=== PATIENT | female | born 1930 | race Hispanic/Latino ===

== ENCOUNTER 2017-02-08 16:56 | Emergency (ER) | payer MEDICARE, BC, OTHER ==
[2017-02-08 17:06] VITALS: BMI 24.4
[2017-02-08 17:11] VITALS: BP 201/76; PULSE 96; RESP 18; TEMP 98.1; O2SAT 97
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
--- NOTE | 2017-02-08 18:16 | RAD ---
HISTORY: pes eval COMPARISON: Chest x-ray performed 02/14/16 TECHNIQUE: Chest, one view. FINDINGS: Examination limited by habitus. LUNGS: Bilateral hilar prominence. No focal consolidation. Please note that chest x-ray has limited sensitivity for the detection of pulmonary masses. PLEURA: No significant pleural effusion identified. No definite pneumothorax . CARDIOVASCULAR: Cardiomegaly. Dense atherosclerotic calcifications of the aortic knob. OSSEOUS STRUCTURES: Osseous demineralization. Degenerative changes. Chronic appearing deformity of the left humeral head. VISUALIZED UPPER ABDOMEN: Unremarkable. OTHER FINDINGS: None. IMPRESSION: Bilateral hilar prominence. CT of the chest with IV contrast may be considered for further evaluation if indicated. Cardiomegaly. Dense atherosclerotic calcifications of the aortic knob.
[2017-02-08 18:35] LABS: BASO # 0.02 K/mm3 (0.0-2.0); BASO % 0.2 % (0.0-3.0); EOS # 0.3 (0.0-0.7); EOS % 2.7 % (1.5-5.0); GRAN # 4.72 (1.4-6.5); GRAN % 51.5 % (50.0-68.0); HEMATOCRIT 30.7 % (36.0-48.0); LYMPH # 3.4 (1.2-3.4); LYMPH % 36.5 % (22.0-35.0); MEAN CORPUSCULAR HEMOGLOBIN 31.3 pg (25.0-35.0); MEAN CORPUSCULAR HGB CONC 31.6 g/dl (31.0-37.0); MEAN PLATELET VOLUME 9.4 fl (7.0-11.0); MONO # 0.8 (0.1-0.6); MONO % 9.1 % (1.0-6.0); RED CELL DISTRIBUTION WIDTH 14.6 % (11.5-14.5); WHITE BLOOD COUNT 9.2 10^3/ul (4.5-11.0)
[2017-02-08 18:46] LABS: ALB/GLOB RATIO 0.9 (1.1-1.8); BILIRUBIN,TOTAL 0.4 mg/dL (0.2-1.3); CALCIUM 8.9 mg/dL (8.4-10.5); POTASSIUM 3.8 mmol/L (3.6-5.0); TOTAL PROTEIN 7.7 g/dL (5.8-8.3)
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
--- NOTE | 2017-02-09 20:02 | US ---
PROCEDURE: Left lower extremity venous US HISTORY: Leg pain and swelling. Evaluate for DVT. PHYSICIAN(S): Denis Orozco MD. TECHNIQUE: Duplex sonography and color-flow Doppler with graded compression were used to evaluate the deep venous system of the left lower extremity. The exam is limited by edema. FINDINGS: The visualized deep venous system of the left lower extremity is sonographically normal and compressible. Normal wave forms and augmentation are seen. There is no sonographic evidence for deep venous thrombosis in the visualized segments of the left lower extremity. IMPRESSION: 1. No sonographic evidence for deep venous thrombosis in the visualized segments of the left lower extremity.
--- NOTE | 2017-02-09 23:05 | CARD ---
APPROVED REPORT EKG Measurement Heart [id number] <Conclusion> Sinus rhythm with occasional premature ventricular complexes Inferior infarct, age undetermined Abnormal ECG
== END 2017-02-08 22:00 | disposition home or self-care (01) ==
LOC: ED 16:56
DX: S02.2XXA Fracture of nasal bones, initial encounter for closed fracture (principal); Y08.89XA Assault by other specified means, initial encounter; Y93.89 Activity, other specified; Y92.009 Unspecified place in unspecified non-institutional (private) residence as the place of occurrence of the external cause; I25.2 Old myocardial infarction; I10 Essential (primary) hypertension; Z87.891 Personal history of nicotine dependence
CPT/HCPCS: 70450; 70486; 71010; 80053; 85025; 93005; 93971; 99282; G0480

== ENCOUNTER 2017-11-08 05:32 | Inpatient (IN) | payer MEDICARE, BC, OTHER ==
[2017-11-08 05:38] VITALS: BMI 22.1
--- NOTE | 2017-11-08 05:45 | ED PDOC ---
Arrival/HPI - General Chief Complaint: Lower Extremity Problem/Injury Time Seen by Provider: 11/08/17 05:33 Historian: Patient, Family (Sons) - History of Present Illness Narrative History of Present Illness (Text): 11/08/17 05:45 Emely Gutierrez is an 86 year old female, whose past medical history includes CVA with residual left-sided hemiparesis, CAD with stents, hypothyroidism, hypertension, dyslipidemia, and peripheral neuropathy, who presents to the Emergency department brought in by EMS accompanied by family complaining of left knee pain. Patient reports she tripped and fell while getting out of her wheelchair today and injured her left knee. Patient now complaining of left knee pain with some swelling. Son states patient is unable to bear weight on her left leg secondary to pain. Patient denies any calf pain, loss of consciousness, head trauma, numbness/tingling in the extremity, other trauma/ injury, or any other complaints. Time/Duration: Prior to Arrival Symptom Onset: Sudden Symptom Course: Unchanged Activities at Onset: Light Context: Standing, Home, Tripped Past Medical History - Provider Review Nursing Documentation Reviewed: Yes - Infectious Disease Hx of Infectious Diseases: None - Tetanus Immunization Tetanus Immunization: Unknown - Cardiac Hx Cardiac Disorders: Yes Hx DC: Yes Hx Hypertension: Yes - Pulmonary Hx Respiratory Disorders: No - Neurological HX Cerebrovascular Accident: Yes (with left side weakness 09/2011) - HEENT Hx HEENT Disorder: Yes (eyeglasses) Hx Cataracts: Yes (LEFT sx) Other/Comment: glasses, r eye lazy eye since childhood - Renal Hx Renal Disorder: Yes Other/Comment: UTI'S - Endocrine/Metabolic Hx Hypothyroidism: Yes - Hematological/Oncological Hx Blood Disorders: Yes Hx Anemia: Yes (blood transfusion) Hx Shingles: Yes (back "yrs ago") - Integumentary Hx Dermatological Disorder: Yes Other/Comment: large parotid mass left neck,l heel ulcer healed, skin discolorations left elbow, multiple skin discolorations r arm, b/l lower extremity brown skin discolorations, 1cm red area of skin to r buttock, - Musculoskeletal/Rheumatological Hx Arthritis: Yes - Gastrointestinal Hx Gastrointestinal Disorders: Yes - Genitourinary/Gynecological Hx Genitourinary Disorders: Yes Hx Urinary Tract Infection: Yes (recent) Other/Comment: urinary urgency, pt recently was experiencing urgency incontinency especially at night+uti finished 7 days of abx, incontinency better - Psychiatric Hx Psychophysiologic Disorder: Yes Hx Anxiety: Yes Hx Depression: Yes ([facility]) Hx Substance Use: No - Past Surgical History Past Surgical History: Unable to Obtain - Surgical History Hx Cardiac Catheterization: Yes Hx Coronary Stent: Yes Hx Orthopedic Surgery: Yes (left hip ORIF) Other/Comment: sx for ulcer to left ft 2nd toe healed, bx x2 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 has had mass over 20 yrs - Anesthesia Hx Anesthesia: Yes Hx Anesthesia Reactions: No Hx Malignant Hyperthermia: No - Suicidal Assessment Feels Threatened In Home Enviroment: No Family/Social History - Physician Review Nursing Documentation Reviewed: Yes Family/Social History: Unknown Family HX Smoking Status: Former Smoker Hx Alcohol Use: No Hx Substance Use: No Hx Substance Use Treatment: No Allergies/Home Meds Allergies/Adverse Reactions: Allergies No Known Allergies Allergy (Verified 03/05/17 11:36) Home Medications: Home Meds Medication Instructions Recorded Confirmed Atorvastatin Calcium [Lipitor] 40 mg PO HS 12/25/11 11/08/17 Carvedilol [Coreg] 12.5 mg PO BID 12/27/11 11/08/17 Furosemide [Lasix] 20 mg PO DAILY 05/14/15 11/08/17 Aspirin [Ecotrin] 81 mg PO DAILY 11/02/15 11/08/17 Cilostazol [Pletal] 100 mg PO DAILY 11/02/15 11/08/17 Losartan [Cozaar] 100 mg PO QPM 11/02/15 11/08/17 rOPINIRole [Requip] 1 mg PO QPM 11/02/15 11/08/17 Alprazolam [Xanax] 1 mg PO HS 01/10/16 11/08/17 Aspirin/Dipyridamole [Aggrenox 1 tab PO BID 01/10/16 11/08/17 25-200 mg] Escitalopram [Lexapro] 10 mg PO DAILY 01/10/16 11/08/17 Lactobacillus Combination No.8 1 tab PO BID 01/10/16 11/08/17 [Adult Probiotic] Levothyroxine [Synthroid] 88 mcg PO DAILY 01/10/16 11/08/17 hydroCHLOROthiazide [Hydrodiuril] 25 mg PO DAILY 01/10/16 11/08/17 traMADol [Ultram] 50 mg PO HS 01/10/16 11/08/17 Docusate Calcium [Kaopectate] 0 mg PO PRN 03/05/17 11/08/17 Loperamide Hydrochloride [Imodium] 0 mg PO PRN PRN 03/05/17 11/08/17 Review of Systems - Physician Review All systems were reviewed & negative as marked: Yes - Review of Systems Constitutional: Normal. absent: Fevers Eyes: Normal ENT: Normal Respiratory: Normal. absent: SOB, Cough Cardiovascular: Normal. absent: Chest Pain Gastrointestinal: Normal. absent: Abdominal Pain, Diarrhea, Nausea, Vomiting Genitourinary Female: Normal. absent: Dysuria, Frequency, Hematuria, Urine Output Changes Musculoskeletal: Arthralgias (+left knee pain/swelling). absent: Back Pain, Neck Pain Skin: Normal. absent: Rash Neurological: Normal. absent: Headache, Dizziness Endocrine: Normal Hemo/Lymphatic: Normal Psychiatric: Normal Physical Exam Vital Signs Reviewed: Yes Vital Signs Temp Pulse Resp BP Pulse Ox 11/08/17 10:57 77 142/62 11/08/17 10:56 77 142/62 11/08/17 10:55 142/62 11/08/17 10:33 72 18 142/62 96 11/08/17 08:18 74 14 115/63 97 11/08/17 05:41 99.3 F 72 14 117/43 L 96 Temperature: Afebrile Blood Pressure: Normal Pulse: Regular Respiratory Rate: Normal Appearance: Positive for: Well-Appearing, Non-Toxic, Comfortable Pain Distress: None Mental Status: Positive for: Alert and Oriented X 3 - Systems Exam Head: Present: Atraumatic, Normocephalic Pupils: Present: PERRL Extroacular Muscles: Present: EOMI Conjunctiva: Present: Normal Mouth: Present: Moist Mucous Membranes Neck: Present: Normal Range of Motion Respiratory/Chest: Present: Clear to Auscultation, Good Air Exchange. No: Respiratory Distress, Accessory Muscle Use Cardiovascular: Present: Regular Rate and Rhythm, Normal S1, S2. No: Murmurs Abdomen: No: Tenderness, Distention, Peritoneal Signs Back: Present: Normal Inspection Upper Extremity: Present: Normal Inspection. No: Cyanosis, Edema Lower Extremity: Present: Swelling (Left knee swelling), Neurovascularly Intact. No: Edema, Erythema Neurological: Present: GCS=15, CN II-XII Intact, Speech Normal Skin: Present: Warm, Dry, Normal Color. No: Rashes Psychiatric: Present: Alert, Oriented x 3, Normal Insight, Normal Concentration Medical Decision Making ED Course and Treatment: 11/08/17 05:45 Impression: 87 year old female brought in s/p trip and fall at home with left knee pain/ swelling today. Differential Diagnosis included but are not limited to: sprain vs. fracture vs. contusion Plan: -- XR Left Knee -- Reassess and disposition Progress Notes: 11/08/17 06:24 Reviewed radiology, XR Left Knee shows osteoporotic changes, no fracture. - RAD Interpretation Radiology Orders: 11/08/17 05:44 KNEE LEFT 2 VIEWS (AP & LAT) [RAD] Stat 11/08/17 06:31 EXT LOWER W/O CONTRAST LEFT [CT] Stat Geodetic Surveyor: ED Physician - Medication Orders Current Medication Orders: Acetaminophen (Tylenol 325mg Tab) 650 mg PO Q4H PRN PRN Reason: Pain, Mild (1-3) Last Admin: 11/08/17 10:57 Dose: 650 mg [facility] Pain/Vitals Document 11/08/17 10:57 EQ (Rec: 11/08/17 10:57 EQ [id number]) Pain Reassessment Is This A Pain ReAssessment? No Sleep Is patient sleeping during reassessment? No Presence of Pain Presence of Pain Yes Pain Scale Used Pain Scale Used Numeric Re-Assess: [facility] Pain/Vitals Document 11/08/17 11:57 LMN (Rec: 11/08/17 12:23 LMN [id number]) Pain Reassessment Is This A Pain ReAssessment? Yes Presence of Pain Presence of Pain No Alprazolam (Xanax) 1 mg PO HS ANDREA PRN Reason: Protocol Last Admin: 11/09/17 22:31 Dose: 1 mg Behavioural Document 11/09/17 22:31 MJ (Rec: 11/09/17 22:31 MJ [id number]) Maintenance Maintenance Dose Yes Nonmedicinal Nonmedicinal Interventions Redirect Therapeutic Communication Behavior Behavior for Medication: Anxiety Amlodipine Besylate (Norvasc) 5 mg PO DAILY [facility] Last Admin: 11/10/17 10:48 Dose: 5 mg Aspirin (Ecotrin) 81 mg PO DAILY [facility] Last Admin: 11/10/17 10:46 Dose: 81 mg Atorvastatin Calcium (Lipitor) 40 mg PO HS [facility] Last Admin: 11/09/17 22:31 Dose: 40 mg Carvedilol (Coreg) 12.5 mg PO BID [facility] Last Admin: 11/10/17 17:17 Dose: 12.5 mg Cilostazol (Pletal) 100 mg PO DAILY [facility] Last Admin: 11/10/17 10:49 Dose: 100 mg Escitalopram Oxalate (Lexapro) 10 mg PO DAILY [facility] Last Admin: 11/10/17 10:48 Dose: 10 mg Famotidine (Pepcid) 40 mg PO HS [facility] Last Admin: 11/09/17 22:31 Dose: 40 mg Furosemide (Lasix) 20 mg PO DAILY [facility] Last Admin: 11/10/17 10:47 Dose: 20 mg MAR Blood Pressure Document 11/10/17 10:47 LMN (Rec: 11/10/17 10:48 LMN [id number]) Blood Pressure Blood Pressure (100/60-150/90) 160/75 Heparin Sodium (Porcine) (Heparin) 5,000 units SC Q12 [facility] PRN Reason: Protocol Last Admin: 11/10/17 10:47 Dose: 5,000 units Subcutaneous Administrations Document 11/10/17 10:47 LMN (Rec: 11/10/17 10:47 LMN [id number]) Injection Site MAR Injection Site Right Arm Charges for Administration # of Subcutaneous Administrations 1 Hydrochlorothiazide (Hydrodiuril) 25 mg PO DAILY [facility] Last Admin: 11/10/17 10:47 Dose: 25 mg Sodium Chloride (Sodium Chloride 0.9%) 1,000 mls @ 60 mls/hr IV .[id number] [facility] Last Admin: 11/10/17 13:20 Dose: 60 mls/hr eMAR Start Stop Document 11/10/17 13:20 LMN (Rec: 11/10/17 13:20 LMN [id number]) Intravenous Solution Start Date 11/10/17 Start Time 13:20 Levothyroxine Sodium (Synthroid) 88 mcg PO DAILY [facility] Last Admin: 11/10/17 10:49 Dose: 88 mcg Losartan Potassium (Cozaar) 100 mg PO QPM [facility] Last Admin: 11/10/17 17:17 Dose: 100 mg Ropinirole HCl (Requip) 1 mg PO QPM [facility] Last Admin: 11/10/17 17:17 Dose: 1 mg Tramadol HCl (Ultram) 50 mg PO HS [facility] Last Admin: 11/09/17 22:32 Dose: 50 mg MAR Pain Assessment Document 11/09/17 22:32 MJ (Rec: 11/09/17 22:33 MJ [id number]) Pain Reassessment Is this a pain reassessment? No Sleep Is patient sleeping during reassessment? No Presence of Pain Presence of Pain Yes Description Description Constant Intensity of Pain at present 7 Alleviating Factors/Management Medication Techniques Alleviating Factors Medication Discontinued Medications Pneumococcal Polyvalent Vaccine (Pneumovax 23 Vaccine) 0.5 ml IM .ONCE ONE Stop: 11/08/17 15:50 Potassium Chloride (K-Dur 20 Meq Er Tab) 40 meq PO STAT STA Stop: 11/08/17 13:12 Last Admin: 11/08/17 13:30 Dose: 40 meq Potassium Chloride (K-Dur 20 Meq Er Tab) 40 meq PO STAT STA Stop: 11/09/17 09:25 Last Admin: 11/09/17 10:38 Dose: 40 meq - Transfer of Care Patient signed out to Dr:: magda ct scan and dispo - Scribe Statement The provider has reviewed the documentation as recorded by the Benito Vega Provider Scribe Attestation: All medical record entries made by the Scribe were at my direction and personally dictated by me. I have reviewed the chart and agree that the record accurately reflects my personal performance of the history, physical exam, medical decision making, and the department course for this patient. I have also personally directed, reviewed, and agree with the discharge instructions and disposition. Disposition/Present on Arrival - Present on Arrival Any Indicators Present on Arrival: No History of DVT/PE: No History of Uncontrolled Diabetes: No Urinary Catheter: No History of Decub. Ulcer: No History Surgical Site Infection Following: None - Disposition Have Diagnosis and Disposition been Completed?: Yes Diagnosis: Knee injury Disposition: HOSPITALIZED Disposition Time: 07:00 Patient Problems: Current Active Problems Problem Status Onset Knee injury Acute Condition: GOOD
--- NOTE | 2017-11-08 07:57 | ED PDOC ---
Physical Exam Vital Signs Temp Pulse Resp BP Pulse Ox 11/08/17 05:41 99.3 F 72 14 117/43 L 96 Medical Decision Making ED Course and Treatment: 11/08/17 07:00 Patient endorsed to me by Dr. Dumont. Patient reports being brought into ER for complaint of left knee injury s/p fall. Patient presents difficulty bending left knee secondary to pain and is unable to ambulate. Patient will be admitted for orthopedic consult and potential rehab pending. Also, patient shows to have a moderate-sized effusion to the left knee. - RAD Interpretation Radiology Orders: 11/08/17 05:44 KNEE LEFT 2 VIEWS (AP & LAT) [RAD] Stat 11/08/17 06:31 EXT LOWER W/O CONTRAST LEFT [CT] Stat - Scribe Statement The provider has reviewed the documentation as recorded by the Benito Bryan Provider Scribe Attestation: All medical record entries made by the Scribe were at my direction and personally dictated by me. I have reviewed the chart and agree that the record accurately reflects my personal performance of the history, physical exam, medical decision making, and the department course for this patient. I have also personally directed, reviewed, and agree with the discharge instructions and disposition. Disposition/Present on Arrival - Present on Arrival Any Indicators Present on Arrival: No History of DVT/PE: No History of Uncontrolled Diabetes: No Urinary Catheter: No History of Decub. Ulcer: No History Surgical Site Infection Following: None - Disposition Have Diagnosis and Disposition been Completed?: Yes Diagnosis: Knee injury Disposition: HOSPITALIZED Disposition Time: 17:52 Condition: GOOD
--- NOTE | 2017-11-08 08:08 | RAD ---
PROCEDURE: Left Knee Radiographs. HISTORY: Pain. COMPARISON: None. FINDINGS: BONES: Diffuse osteopenia suggests osteoporosis. This adversely affects the ability to identify nondisplaced fractures. No displaced fractures identified there is no destructive bony lesion appreciable. JOINTS: Joint space narrowing is seen in all 3 joint compartments with mild articular cortical sclerosis compatible with degenerative joint disease. Limited osteophyte development is seen at the patellofemoral compartment. JOINT EFFUSION: A mild suprasellar bursa effusion is identified. OTHER FINDINGS: Extensive vascular calcifications seen posterior distal thigh and proximal leg soft tissues as well as posterior to the knee. Wall stents are identified in the plane of the left superficial femoral artery in the thigh. IMPRESSION: No displaced fracture, subluxation or dislocation. Diffuse osteopenia suggests osteoporosis. Mild suprapatellar bursa effusion.
--- NOTE | 2017-11-08 10:01 | CT ---
PROCEDURE: CT LEFT HIP WITH KNEE WITHOUT CONTRAST HISTORY: fall knee and hip pain COMPARISON: Left knee radiographs 11/08/2017 and left hip radiographs 01/10/2016. Technique: A volumetric ct examination of the left femur was performed including left hip and knee joints. Reformatted datasets provided sagittal axial and coronal planes including surface rendered series. Contrast Dose: None Radiation dose:Total exam DLP = 496.42 mGy-cm. This CT exam was performed using one or more of the following dose reduction techniques: Automated exposure control, adjustment of the mA and/or kV according to patient size, and/or use of iterative reconstruction technique. FINDINGS: No fracture destructive bony lesion is appreciated throughout the left femur. Advanced degenerative changes are identified at the left knee including joint space narrowing, articular cortical sclerosis and osteophyte development. Degenerative calcific changes are identified within the bilateral medial and lateral menisci. Diffuse osteopenia suggests advanced osteoporosis. Clinically correlate. Patient is again seen the status post ORIF proximal left femur for heel proximal left femoral fracture. Intramedullary nail transfixed by proximal and distal interlocking screws are unchanged in location and intrinsic integrity. Moderate degenerative changes seen the left hip joint. Local soft tissues reflect a moderate suprasellar bursa effusion. There is an old healed fracture of the left ischium and extensive wall stenting is appreciated in the course of the left superficial femoral artery throughout its proximal to mid segment. Extensor atherosclerosis is otherwise appreciated throughout the left SFA. Moderate atrophy of the flexor and extensor muscle elite that compartments throughout the thigh is identified. IMPRESSION: 1. No acute left hip fracture or dislocation. Mild osteoarthritis of the left hip and knee joints is identified. A moderate suprapatellar bursa effusion is appreciated. 2. Status post ORIF proximal left femur again identified. Proximal left femoral fracture healed as well as left ischial fracture. 3. Extensive wall stenting is seen involving the proximal to mid left SFA.
[2017-11-08 10:19] LABS: BASO # 0.02 K/mm3 (0.0-2.0); BASO % 0.2 % (0.0-3.0); EOS # 0.2 (0.0-0.7); EOS % 1.4 % (1.5-5.0); GRAN # 8.68 (1.4-6.5); GRAN % 71.7 % (50.0-68.0); HEMOGLOBIN 10.1 g/dL (12.0-16.0); LYMPH # 2.2 (1.2-3.4); LYMPH % 17.9 % (22.0-35.0); MEAN CELL VOLUME 95.4 fl (80.0-105.0); MEAN CORPUSCULAR HEMOGLOBIN 30.7 pg (25.0-35.0); MEAN CORPUSCULAR HGB CONC 32.2 g/dl (31.0-37.0); MEAN PLATELET VOLUME 9.6 fl (7.0-11.0); MONO # 1.1 (0.1-0.6); MONO % 8.8 % (1.0-6.0); RBC 3.29 10^6/uL (3.5-6.1); RED CELL DISTRIBUTION WIDTH 14.4 % (11.5-14.5); WHITE BLOOD COUNT 12.1 10^3/ul (4.5-11.0)
[2017-11-08 10:29] LABS: ALBUMIN 3.7 g/dL (3.0-4.8); CALCIUM 8.6 mg/dL (8.4-10.5)
[2017-11-08 10:39] LABS: TROPONIN I 0.07 ng/mL
[2017-11-08] MEDS: Cilostazol 50 mg Tab UD PO SCH (10:58)
[2017-11-08] MEDS: Levothyroxine 88 MCG TAB PO SCH (10:58)
[2017-11-08] MEDS ORDERED: Potassium Chloride 20 mEq ER Tab PO STA (13:11)
--- NOTE | 2017-11-08 13:26 | CP.PCM.HP ---
<Nina Monge - Last Filed: 11/08/17 13:08> History of Present Illness - History of Present Illness History of Present Illness: H&P for Kellee Pérez PGY3 This is an 87yo female with past medical history of HTN, CAD, OA, Hypothyroidism , dyslipidemia, PVD (3 stents in L leg, 1 in R leg), CVA w/ L residual weakness , chronic diarrhea who came to ED for fall. Patient report she was transferring from her wheelchair and fell on her L side. She did not hit her head and was not dizzy at the time. It was more of a mechanical fall since she had L residual weakness from hx of CVA. Daughter is also at bedside. Patient hit her knee and her L hip. XR and LE CT in ED showed effusion, but no evidence of fracture. Patient also complains of diarrhea, which has been chronic for years. She has never seen a GI doctor, but thinks it could be diet dependent. She denies chest pain, shortness of breath, nausea/vomiting, abdominal pain, fever/ chills, dysuria or hematuria. Past medical history: HTN, CAD, OA, Hypothyroidism, dyslipidemia, PVD (3 stents in L leg, 1 in R leg), CVA w/ L residual weakness, chronic diarrhea Past surgical history: L hip fx w/ pin Home meds: Reviewed as per MAR Allergies: NKDA Social history: Denies EtOH or drug use. Lives with family. Patient uses wheel chair, but also can use walker. Family history: Non-contributory Present on Admission - Present on Admission Any Indicators Present on Admission: No Review of Systems - Review of Systems All systems: reviewed and no additional remarkable complaints except Review of Systems: 12 point ROS reviewed as per HPI and is otherwise negative. Past Patient History - Infectious Disease Hx of Infectious Diseases: None - Tetanus Immunizations Tetanus Immunization: Unknown - Past Medical History & Family History Past Medical History?: Yes - Past Social History Smoking Status: Former Smoker - CARDIAC Hx Cardiac Disorders: Yes Hx Heart Attack: Yes Hx Hypertension: Yes - PULMONARY Hx Respiratory Disorders: No - NEUROLOGICAL HX Cerebrovascular Accident: Yes (with left side weakness 09/2011) - HEENT Hx HEENT Problems: Yes (eyeglasses) Hx Cataracts: Yes (LEFT sx) Other/Comment: glasses, r eye lazy eye since childhood - RENAL Hx Chronic Kidney Disease: Yes Other/Comment: UTI'S - ENDOCRINE/METABOLIC Hx Hypothyroidism: Yes - HEMATOLOGICAL/ONCOLOGICAL Hx Blood Disorders: Yes Hx Anemia: Yes (blood transfusion) Hx Shingles: Yes (back "yrs ago") - INTEGUMENTARY Hx Dermatological Problems: Yes Other/Comment: large parotid mass left neck,l heel ulcer healed, skin discolorations left elbow, multiple skin discolorations r arm, b/l lower extremity brown skin discolorations, 1cm red area of skin to r buttock, - MUSCULOSKELETAL/RHEUMATOLOGICAL Hx Arthritis: Yes - GASTROINTESTINAL Hx Gastrointestinal Disorders: Yes - GENITOURINARY/GYNECOLOGICAL Hx Genitourinary Disorders: Yes Hx Urinary Tract Infection: Yes (recent) Other/Comment: urinary urgency, pt recently was experiencing urgency incontinency especially at night+uti finished 7 days of abx, incontinency better - PSYCHIATRIC Hx Psychophysiologic Disorder: Yes Hx Anxiety: Yes Hx Depression: Yes ([facility]) Hx Substance Use: No - SURGICAL HISTORY Hx Cardiac Catheterization: Yes Hx Coronary Stent: Yes Hx Orthopedic Surgery: Yes (left hip ORIF) Other/Comment: sx for ulcer to left ft 2nd toe healed, bx x2 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 has had mass over 20 yrs - ANESTHESIA Hx Anesthesia: Yes Hx Anesthesia Reactions: No Hx Malignant Hyperthermia: No Meds Allergies/Adverse Reactions: Allergies Allergy/AdvReac Type Severity Reaction Status Date / Time No Known Allergies Allergy Verified 03/05/17 11:36 Physical Exam - Constitutional Appears: No Acute Distress - Head Exam Head Exam: ATRAUMATIC, NORMAL INSPECTION, NORMOCEPHALIC - Eye Exam Eye Exam: Normal appearance, PERRL Pupil Exam: PERRL - ENT Exam ENT Exam: Mucous Membranes Moist Additional comments: L neck mass (chronic) - Respiratory Exam Respiratory Exam: Clear to Auscultation Bilateral, NORMAL BREATHING PATTERN. absent: Rales, Rhonchi, Wheezes - Cardiovascular Exam Cardiovascular Exam: REGULAR RHYTHM, +S1, +S2. absent: Gallop, Rubs, Systolic Murmur - GI/Abdominal Exam GI & Abdominal Exam: Normal Bowel Sounds, Soft. absent: Hernia, Rebound, Rigid , Tenderness - Extremities Exam Extremities exam: Positive for: joint swelling (on L knee). Negative for: calf tenderness, pedal edema - Neurological Exam Neurological exam: Alert, CN II-XII Intact, Oriented x3 - Psychiatric Exam Psychiatric exam: Normal Affect, Normal Mood - Skin Skin Exam: Dry, Warm Additional comments: bruising on L hip Results - Vital Signs Recent Vital Signs: Last Vital Signs Temp 99.3 F 11/08/17 05:41 Pulse 77 11/08/17 10:57 Resp 18 11/08/17 10:33 BP 142/62 11/08/17 10:57 Pulse Ox 96 11/08/17 10:33 - Labs Result Diagrams: 11/08/17 09:50 11/08/17 09:50 Labs: Laboratory Results - last 24 hr 11/08/17 11/08/17 09:50 09:50 WBC 12.1 H RBC 3.29 L Hgb 10.1 L Hct 31.4 L MCV 95.4 MCH 30.7 MCHC 32.2 RDW 14.4 Plt Count 224 MPV 9.6 Gran % 71.7 H Lymph % (Auto) 17.9 L Edwards % (Auto) 8.8 H Eos % (Auto) 1.4 L Baso % (Auto) 0.2 Gran # 8.68 H Lymph # (Auto) 2.2 Edwards # (Auto) 1.1 H Eos # (Auto) 0.2 Baso # (Auto) 0.02 Sodium 144 Potassium 3.0 L Chloride 102 Carbon Dioxide 30 Anion Gap 14 BUN 20 Creatinine 1.2 Est GFR ( Amer) 52 Est GFR (Non-Af Amer) 43 Random Glucose 114 H Calcium 8.6 Total Bilirubin 0.6 AST 23 ALT 20 Alkaline Phosphatase 73 Troponin I 0.07 D Total Protein 7.5 Albumin 3.7 Globulin 3.8 Albumin/Globulin Ratio 1.0 L Assessment & Plan - Assessment and Plan (Free Text) Assessment: This is an 87yo female with past medical history of HTN, CAD, OA, Hypothyroidism , dyslipidemia, PVD (3 stents in L leg, 1 in R leg), CVA w/ L residual weakness , chronic diarrhea who was admitted for 1. Mechanical fall - No L knee fx seen on XR and CT 2. Chronic Diarrhea - Pt never had colonoscopy or EGD - never been evaluated by GI 3. HTN 4. OA 5. Hypothyroidism 6. CAD 7. PVD 8. CVA w/ L residual weakness Plan: Ortho is consulted for L knee effusion. Will get L hip XR to rule out fracture. Continue Tylenol for pain control. Will continue home meds such as ASA, Lipitor , Norvasc, Lasix, HCTZ, Losartan and Coreg. We will continue Requip and tramadol as well as synthroid. Patient is on GI and DVT prophylaxis. Will obtain stool studies for chronic diarrhea. GI is consulted and will follow recommendations. Will place patient on HHD with lactose restriction. Patient will need to be evaluated by PT. Discussed plan with daughter and patient. Case seen, discussed and reviewed with Dr. Hadley. Kellee Monge PGY3 - Date & Time Date: 11/08/17 Time: 13:49 <Juanito Hadley S - Last Filed: 11/10/17 10:25> Results - Vital Signs Recent Vital Signs: Last Vital Signs Temp 96.8 F L 11/10/17 06:00 Pulse 57 L 11/10/17 06:00 Resp 20 11/10/17 06:00 BP 124/55 L 11/10/17 06:00 Pulse Ox 96 11/10/17 06:00 - Labs Result Diagrams: 11/09/17 06:30 11/09/17 06:30 Assessment & Plan - Assessment and Plan (Free Text) Plan: Pt seen and examined yesterday. This is a late entry from that visit. I have reviewed the note of the medical record retrieval specialist and agree with it. I have discussed the assessment and plan with the resident. I have reviewed the patient's labs and medications. Pt had her effusion drained by Ortho. Spoke to family about JOSE. No pain. Spoke to SW at [facility]. Pt with controlled HTN.
[2017-11-08] MEDS ORDERED: Pneumococcal 23-Valent Vaccine IM ONE (15:49)
--- NOTE | 2017-11-08 17:20 | RAD ---
PROCEDURE: Left Hip X-ray Radiographs. HISTORY: fall COMPARISON: Left hip radiographs dated 01/10/2016. FINDINGS: BONES: Left femoral intra medullary ann and screw redemonstrated. No periprosthetic fracture. Limited evaluation of the sacrum due to overlying bowel gas. JOINTS: Diffusely narrowed SOFT TISSUES: Normal. OTHER FINDINGS: Bilateral superficial femoral artery vascular stents. IMPRESSION: No demonstrated acute fracture or dislocation. Diffuse degenerative changes.
[2017-11-09 07:01] LABS: HEMOGLOBIN 9.8 g/dL (12.0-16.0); MEAN CELL VOLUME 94.4 fl (80.0-105.0); MEAN CORPUSCULAR HEMOGLOBIN 30.7 pg (25.0-35.0); MEAN CORPUSCULAR HGB CONC 32.6 g/dl (31.0-37.0); MEAN PLATELET VOLUME 9.9 fl (7.0-11.0); RBC 3.19 10^6/uL (3.5-6.1); RED CELL DISTRIBUTION WIDTH 14.4 % (11.5-14.5); WHITE BLOOD COUNT 11.6 10^3/ul (4.5-11.0)
[2017-11-09 07:19] LABS: CALCIUM 8.4 mg/dL (8.4-10.5)
--- NOTE | 2017-11-09 08:06 | CON ---
DATE: 11/08/2017 ORTHOPEDIC CONSULTATION REPORT LOCATION: Patient is an 87-year-old female in room 566, bed 1. HISTORY OF PRESENT ILLNESS: Patient was seen for extreme pain and swelling of her left knee. Past history of a left hip fracture, which had a peritroch ann and CVA with weakness on the left side which happened about 10 years ago. She does have footdrop, and ambulates with a cane or a walker, and yesterday she stumbled over dropped foot and injured her left knee. X-ray shows osteoarthritis and osteopenia of her left lower leg and she has tremendous effusion of the left knee, it was tense, so we aspirated that right away, got out 70 mL of bloody fluid, and CAT scan there is osteoarthritis and a suggestion of stress fracture, nondisplaced fracture of the lateral tibial plateau, which has to be investigated later, but because her bone is so osteopenic, the risks of surgery outweigh the benefits, so hope she feels better with the aspiration arthrocentesis and injection of Depo-Medrol and Marcaine, and will probably refrain from too much walking knowing that the bones still may get weak, and we cannot afford to let her put weight on that left knee that has been injured, has a suspected nondisplaced fracture, and she is probably definitely going to need subacute rehab to let this knee rest for 2 or 3 weeks. FINAL DIAGNOSES: Hemarthrosis, left knee, with underlying osteoarthritis and stress fracture of her left knee, suspected lateral tibial plateau, minimally displaced; and we will give her physical therapy for and no weightbearing on that left lower extremity for now, until another x-ray is done. Hopefully, this fracture will become more evident on the followup x-rays because the CAT scan was not a designated CAT scan of the knee. So, await a couple of days to get her feeling better and she will go for another CAT scan of the left knee when the swelling goes down a little more. No surgery is planned therapy. Jakob Rg DO
[2017-11-09] MEDS ORDERED: Potassium Chloride 20 mEq ER Tab PO STA (09:24)
[2017-11-09] MEDS: Levothyroxine 88 MCG TAB PO SCH (10:38)
[2017-11-09] MEDS: Cilostazol 50 mg Tab UD PO SCH (10:38)
--- NOTE | 2017-11-09 11:21 | CP.PCM.PN ---
<Nina Monge - Last Filed: 11/09/17 11:17> Subjective - Date & Time of Evaluation Date of Evaluation: 11/09/17 Time of Evaluation: 07:00 - Subjective Subjective: Medicine Progress Note for Kellee Pérez PGY3 Patient seen and examined at bedside. There were no acute overnight events as per nursing staff. Patient slept well overnight. She is feeling well. She denies pain, chest pain, shortness of breath, nausea/vomiting, fever/chills, numbness/tingling. Patient is still complaining of loose stools. Objective - Vital Signs/Intake and Output Vital Signs (last 24 hours): Temp Pulse Resp BP Pulse Ox 98.1 F 66 18 120/62 92 L 11/09/17 06:00 11/09/17 06:00 11/09/17 06:00 11/09/17 10:39 11/09/17 06:00 - Medications Medications: Current Medications Acetaminophen (Tylenol 325mg Tab) 650 mg PO Q4H PRN PRN Reason: Pain, Mild (1-3) Last Admin: 11/08/17 10:57 Dose: 650 mg Alprazolam (Xanax) 1 mg PO [facility] PRN Reason: Protocol Last Admin: 11/08/17 23:07 Dose: 1 mg Amlodipine Besylate (Norvasc) 5 mg PO DAILY [facility] Last Admin: 11/09/17 10:39 Dose: 5 mg Aspirin (Ecotrin) 81 mg PO DAILY [facility] Last Admin: 11/09/17 10:39 Dose: 81 mg Atorvastatin Calcium (Lipitor) 40 mg PO HS [facility] Last Admin: 11/08/17 23:07 Dose: 40 mg Carvedilol (Coreg) 12.5 mg PO BID [facility] Last Admin: 11/09/17 10:38 Dose: 12.5 mg Cilostazol (Pletal) 100 mg PO DAILY [facility] Last Admin: 11/09/17 10:38 Dose: 100 mg Escitalopram Oxalate (Lexapro) 10 mg PO DAILY [facility] Last Admin: 11/09/17 10:38 Dose: 10 mg Famotidine (Pepcid) 40 mg PO HS [facility] Last Admin: 11/08/17 23:08 Dose: 40 mg Furosemide (Lasix) 20 mg PO DAILY [facility] Last Admin: 11/09/17 10:39 Dose: 20 mg Heparin Sodium (Porcine) (Heparin) 5,000 units SC Q12 [facility] PRN Reason: Protocol Last Admin: 11/09/17 10:37 Dose: 5,000 units Hydrochlorothiazide (Hydrodiuril) 25 mg PO DAILY [facility] Last Admin: 11/09/17 10:39 Dose: 25 mg Levothyroxine Sodium (Synthroid) 88 mcg PO DAILY [facility] Last Admin: 11/09/17 10:38 Dose: 88 mcg Losartan Potassium (Cozaar) 100 mg PO QPM [facility] Last Admin: 11/08/17 19:07 Dose: 100 mg Ropinirole HCl (Requip) 1 mg PO QPM [facility] Last Admin: 11/08/17 19:07 Dose: 1 mg Tramadol HCl (Ultram) 50 mg PO HS [facility] Last Admin: 11/08/17 23:07 Dose: 50 mg - Labs Labs: 11/09/17 06:30 11/09/17 06:30 - Constitutional Appears: No Acute Distress - Head Exam Head Exam: ATRAUMATIC, NORMAL INSPECTION, NORMOCEPHALIC - ENT Exam ENT Exam: Mucous Membranes Moist Additional comments: L sided face mass - Respiratory Exam Respiratory Exam: Clear to Ausculation Bilateral, NORMAL BREATHING PATTERN. absent: Rales, Rhonchi, Wheezes - Cardiovascular Exam Cardiovascular Exam: REGULAR RHYTHM, +S1, +S2. absent: Gallop, Rubs, Murmur - GI/Abdominal Exam GI & Abdominal Exam: Soft, Normal Bowel Sounds. absent: Rigid, Tenderness, Mass , Rebound - Extremities Exam Extremities Exam: absent: Pedal Edema Additional comments: L knee s/p drainage. clean and dry. no effusion noted. - Neurological Exam Neurological Exam: Alert, Awake, CN II-XII Intact, Oriented x3 - Skin Skin Exam: Dry, Warm Assessment and Plan - Assessment and Plan (Free Text) Assessment: This is an 87yo female with past medical history of HTN, CAD, OA, Hypothyroidism , dyslipidemia, PVD (3 stents in L leg, 1 in R leg), CVA w/ L residual weakness , chronic diarrhea who was admitted for 1. Mechanical fall - No L knee fx seen on XR and CT - No hip fx on XR 2. Chronic Diarrhea - Pt never had colonoscopy or EGD - never been evaluated by GI 3. HTN 4. OA 5. Hypothyroidism 6. CAD 7. PVD 8. CVA w/ L residual weakness 9. Hypokalemia Plan: Ortho drained knee effusion which was hemearthrosis. As per ortho, they suspect possible L knee stress fracture despite negative imaging. No weight bearing on L for now. Ortho recommended possible repeat knee CT. Will continue patient's home medications. She is stable. GI is on consult for diarrhea. C. diff pending. Lactose restricted diet. Will monitor electrolytes and replace as needed. Continue GI and DVT prophylaxis. PT recommended JOSE and will most likely be d/c on Sunday. Case seen, discussed and reviewed with Dr. Hadley. Kellee Monge PGY3 <Juanito Hadley S - Last Filed: 11/10/17 11:54> Objective - Vital Signs/Intake and Output Vital Signs (last 24 hours): Temp Pulse Resp BP Pulse Ox 96.8 F L 57 L 20 160/75 H 96 11/10/17 06:00 11/10/17 06:00 11/10/17 06:00 11/10/17 10:47 11/10/17 06:00 - Medications Medications: Current Medications Acetaminophen (Tylenol 325mg Tab) 650 mg PO Q4H PRN PRN Reason: Pain, Mild (1-3) Last Admin: 11/08/17 10:57 Dose: 650 mg Alprazolam (Xanax) 1 mg PO HS [facility] PRN Reason: Protocol Last Admin: 11/09/17 22:31 Dose: 1 mg Amlodipine Besylate (Norvasc) 5 mg PO DAILY [facility] Last Admin: 11/10/17 10:48 Dose: 5 mg Aspirin (Ecotrin) 81 mg PO DAILY [facility] Last Admin: 11/10/17 10:46 Dose: 81 mg Atorvastatin Calcium (Lipitor) 40 mg PO HS [facility] Last Admin: 11/09/17 22:31 Dose: 40 mg Carvedilol (Coreg) 12.5 mg PO BID [facility] Last Admin: 11/10/17 10:46 Dose: 12.5 mg Cilostazol (Pletal) 100 mg PO DAILY [facility] Last Admin: 11/10/17 10:49 Dose: 100 mg Escitalopram Oxalate (Lexapro) 10 mg PO DAILY [facility] Last Admin: 11/10/17 10:48 Dose: 10 mg Famotidine (Pepcid) 40 mg PO [facility] Last Admin: 11/09/17 22:31 Dose: 40 mg Furosemide (Lasix) 20 mg PO DAILY [facility] Last Admin: 11/10/17 10:47 Dose: 20 mg Heparin Sodium (Porcine) (Heparin) 5,000 units SC Q12 [facility] PRN Reason: Protocol Last Admin: 11/10/17 10:47 Dose: 5,000 units Hydrochlorothiazide (Hydrodiuril) 25 mg PO DAILY [facility] Last Admin: 11/10/17 10:47 Dose: 25 mg Levothyroxine Sodium (Synthroid) 88 mcg PO DAILY [facility] Last Admin: 11/10/17 10:49 Dose: 88 mcg Losartan Potassium (Cozaar) 100 mg PO QPM [facility] Last Admin: 11/09/17 17:15 Dose: 100 mg Ropinirole HCl (Requip) 1 mg PO QPM [facility] Last Admin: 11/09/17 17:15 Dose: 1 mg Tramadol HCl (Ultram) 50 mg PO [facility] Last Admin: 11/09/17 22:32 Dose: 50 mg - Labs Labs: 11/09/17 06:30 11/09/17 06:30 Assessment and Plan - Assessment and Plan (Free Text) Plan: Pt seen and examined yesterday. I have reviewed the note of the medical accountant and agree with it. I have discussed the assessment and plan with the resident. I have reviewed the patient's labs and medications. She has improvement in her hemearthrosis of the left knee. She will be D/C to [facility] on Sunday. DAAR schmid.
[2017-11-09] MEDS ORDERED: Iohexol 240 (50 ml) ONE (13:23)
--- NOTE | 2017-11-09 13:40 | CP.PCM.CON ---
<Nicho Duff - Last Filed: 11/09/17 15:00> History of Present Illness - History of Present Illness History of Present Illness: PGY-4 GI Fellow Consult Note Mrs. 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 GI consulted for reported diarrhea. Patient states that she has had diarrhea for at least a year or more. She reports loose brown stools, 2-3x per day. She states she does not have them during the night but does state that she has a bowel movement nearly first thing in the morning. She denied any melena, change in stool caliber, weight loss, hematochezia nor incontinence, but she does state that her gait difficulties often makes it difficult to get to the bathroom. Therefore, she wears a diaper because she cannot make it to commode and often soils that or sheets. She denies any recent Abx use, travel, sick contacts nor change in diet. She believes there may be a dietary component to it but she is not sure regarding what. She denied ever having a colonoscopy, but reports an EGD around the time of her stroke which she believed was normal. 12 point ROS negative other than stated above MHx: As mentioned above in addition to OA, Hypothyroid SurgHx: Cardiac stents, hip fx repair FamHx: Denies fam hx of diarrhea SocHx:Denies EtOH or illicits All: NKDA Past Patient History - Infectious Disease Hx of Infectious Diseases: None - Tetanus Immunizations Tetanus Immunization: Unknown - Past Medical History & Family History Past Medical History?: Yes - Past Social History Smoking Status: Former Smoker - CARDIAC Hx Cardiac Disorders: Yes Hx Hypertension: Yes - PULMONARY Hx Respiratory Disorders: No - NEUROLOGICAL HX Cerebrovascular Accident: Yes - HEENT Hx HEENT Problems: Yes (eyeglasses) Hx Cataracts: Yes (LEFT sx) Other/Comment: r eye lazy eye since childhood - RENAL Hx Chronic Kidney Disease: Yes Other/Comment: UTI'S - ENDOCRINE/METABOLIC Hx Endocrine Disorders: Yes Hx Hypothyroidism: Yes - HEMATOLOGICAL/ONCOLOGICAL Hx Blood Disorders: Yes Hx Anemia: Yes (blood transfusion) Hx Shingles: Yes (back "yrs ago") - INTEGUMENTARY Hx Dermatological Problems: Yes Other/Comment: large parotid mass left neck,l heel ulcer healed, multiple bruises to both arms, bruise to left hip, healed sacral wound scar, slight redness to buttocks, brown skin discolorations ble, bruise left shoulder, hx of hyperbaric treatments for ulcers to toes ulcers healed - MUSCULOSKELETAL/RHEUMATOLOGICAL Hx Falls: Yes (fell yesterday) - GASTROINTESTINAL Hx Gastrointestinal Disorders: Yes (gastritis) Hx Gastroesophageal Reflux: Yes - GENITOURINARY/GYNECOLOGICAL Hx Genitourinary Disorders: Yes Hx Incontinence: Yes (urgency) Hx Urinary Tract Infection: Yes (recent) - PSYCHIATRIC Hx Substance Use: No - SURGICAL HISTORY Hx Surgeries: Yes Hx Cardiac Catheterization: Yes Hx Coronary Stent: Yes Hx Orthopedic Surgery: Yes (left hip ORIF) Other/Comment: sx for ulcer to left ft 2nd toe healed, bx x2 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 has had mass over 20 yrs - ANESTHESIA Hx Anesthesia: Yes Hx Anesthesia Reactions: No Hx Malignant Hyperthermia: No Meds Allergies/Adverse Reactions: Allergies Allergy/AdvReac Type Severity Reaction Status Date / Time No Known Allergies Allergy Verified 03/05/17 11:36 - Medications Medications: Current Medications Acetaminophen (Tylenol 325mg Tab) 650 mg PO Q4H PRN PRN Reason: Pain, Mild (1-3) Last Admin: 11/08/17 10:57 Dose: 650 mg Alprazolam (Xanax) 1 mg PO [facility] PRN Reason: Protocol Last Admin: 11/08/17 23:07 Dose: 1 mg Amlodipine Besylate (Norvasc) 5 mg PO DAILY [facility] Last Admin: 11/09/17 10:39 Dose: 5 mg Aspirin (Ecotrin) 81 mg PO DAILY [facility] Last Admin: 11/09/17 10:39 Dose: 81 mg Atorvastatin Calcium (Lipitor) 40 mg PO HS [facility] Last Admin: 11/08/17 23:07 Dose: 40 mg Carvedilol (Coreg) 12.5 mg PO BID [facility] Last Admin: 11/09/17 10:38 Dose: 12.5 mg Cilostazol (Pletal) 100 mg PO DAILY [facility] Last Admin: 11/09/17 10:38 Dose: 100 mg Escitalopram Oxalate (Lexapro) 10 mg PO DAILY [facility] Last Admin: 11/09/17 10:38 Dose: 10 mg Famotidine (Pepcid) 40 mg PO [facility] Last Admin: 11/08/17 23:08 Dose: 40 mg Furosemide (Lasix) 20 mg PO DAILY [facility] Last Admin: 11/09/17 10:39 Dose: 20 mg Heparin Sodium (Porcine) (Heparin) 5,000 units SC Q12 [facility] PRN Reason: Protocol Last Admin: 11/09/17 10:37 Dose: 5,000 units Hydrochlorothiazide (Hydrodiuril) 25 mg PO DAILY [facility] Last Admin: 11/09/17 10:39 Dose: 25 mg Levothyroxine Sodium (Synthroid) 88 mcg PO DAILY [facility] Last Admin: 11/09/17 10:38 Dose: 88 mcg Losartan Potassium (Cozaar) 100 mg PO QPM [facility] Last Admin: 11/08/17 19:07 Dose: 100 mg Ropinirole HCl (Requip) 1 mg PO QPM [facility] Last Admin: 11/08/17 19:07 Dose: 1 mg Tramadol HCl (Ultram) 50 mg PO HS [facility] Last Admin: 11/08/17 23:07 Dose: 50 mg Physical Exam - Constitutional Appears: Non-toxic, No Acute Distress - Head Exam Head Exam: ATRAUMATIC Additional comments: L mandible with soft, semi-mobile mass - Eye Exam Eye Exam: EOMI. absent: Conjunctival injection, Scleral icterus - ENT Exam ENT Exam: Mucous Membranes Dry, Normal Oropharynx - Respiratory Exam Respiratory Exam: Clear to Auscultation Bilateral. absent: Accessory Muscle Use , Respiratory Distress, Stridor - Cardiovascular Exam Cardiovascular Exam: RRR. absent: Systolic Murmur - GI/Abdominal Exam GI & Abdominal Exam: Normal Bowel Sounds, Soft. absent: Bruit, Diminished Bowel Sounds, Distended, Guarding, Tenderness - Rectal Exam Rectal Exam: Deferred - Neurological Exam Neurological exam: Alert, Oriented x3 - Psychiatric Exam Psychiatric exam: Normal Affect, Normal Mood - Skin Skin Exam: Dry, Warm Results - Vital Signs Recent Vital Signs: Last Vital Signs Temp 98.1 F 11/09/17 06:00 Pulse 66 11/09/17 06:00 Resp 18 11/09/17 06:00 BP 120/62 11/09/17 10:39 Pulse Ox 92 L 11/09/17 06:00 - Labs Result Diagrams: 11/09/17 06:30 11/09/17 06:30 Labs: Laboratory Results - last 24 hr 11/09/17 11/09/17 06:30 06:30 WBC 11.6 H RBC 3.19 L Hgb 9.8 L Hct 30.1 L MCV 94.4 MCH 30.7 MCHC 32.6 RDW 14.4 Plt Count 194 MPV 9.9 Sodium 144 Potassium 3.2 L Chloride 105 Carbon Dioxide 29 Anion Gap 13 BUN 25 H Creatinine 1.3 H Est GFR ( Amer) 47 Est GFR (Non-Af Amer) 39 Random Glucose 136 H Calcium 8.4 Magnesium 2.1 Assessment & Plan - Assessment and Plan (Free Text) Assessment: Chronic diarrhea: >30 days in duration. Pt reports at symptoms for nearly a year. Never had CSPY, only EGD which was reportedly normal last year around time of stroke. No melena nor hematochezia. Symptoms do not occur at night therefore not suggestive of secretory diarrhea. Though less likely infectious, need to rule out. Ultimately likely needs CSPY as outpatient with biopsies to further w/u, possible microscopic colitis? Will begin w/u with Abd/Pelvis CT with PO contrast. Plan: Check C diff, Stool Cx, O&P Ordered CT Abd/Pelvis with PO contrast Likely OP CSPY OK to give loperamide once C diff ruled out - Date & Time Date: 11/09/17 Time: 13:00 <Clinton Calixto V - Last Filed: 11/10/17 00:06> Meds - Medications Medications: Current Medications Acetaminophen (Tylenol 325mg Tab) 650 mg PO Q4H PRN PRN Reason: Pain, Mild (1-3) Last Admin: 11/08/17 10:57 Dose: 650 mg Alprazolam (Xanax) 1 mg PO HS [facility] PRN Reason: Protocol Last Admin: 11/09/17 22:31 Dose: 1 mg Amlodipine Besylate (Norvasc) 5 mg PO DAILY [facility] Last Admin: 11/09/17 10:39 Dose: 5 mg Aspirin (Ecotrin) 81 mg PO DAILY [facility] Last Admin: 11/09/17 10:39 Dose: 81 mg Atorvastatin Calcium (Lipitor) 40 mg PO HS [facility] Last Admin: 11/09/17 22:31 Dose: 40 mg Carvedilol (Coreg) 12.5 mg PO BID [facility] Last Admin: 11/09/17 17:15 Dose: 12.5 mg Cilostazol (Pletal) 100 mg PO DAILY [facility] Last Admin: 11/09/17 10:38 Dose: 100 mg Escitalopram Oxalate (Lexapro) 10 mg PO DAILY [facility] Last Admin: 11/09/17 10:38 Dose: 10 mg Famotidine (Pepcid) 40 mg PO HS [facility] Last Admin: 11/09/17 22:31 Dose: 40 mg Furosemide (Lasix) 20 mg PO DAILY [facility] Last Admin: 11/09/17 10:39 Dose: 20 mg Heparin Sodium (Porcine) (Heparin) 5,000 units SC Q12 [facility] PRN Reason: Protocol Last Admin: 11/09/17 22:30 Dose: 5,000 units Hydrochlorothiazide (Hydrodiuril) 25 mg PO DAILY [facility] Last Admin: 11/09/17 10:39 Dose: 25 mg Levothyroxine Sodium (Synthroid) 88 mcg PO DAILY [facility] Last Admin: 11/09/17 10:38 Dose: 88 mcg Losartan Potassium (Cozaar) 100 mg PO QPM [facility] Last Admin: 11/09/17 17:15 Dose: 100 mg Ropinirole HCl (Requip) 1 mg PO QPM [facility] Last Admin: 11/09/17 17:15 Dose: 1 mg Tramadol HCl (Ultram) 50 mg PO HS [facility] Last Admin: 11/09/17 22:32 Dose: 50 mg Results - Vital Signs Recent Vital Signs: Last Vital Signs Temp 97.6 F 11/09/17 22:33 Pulse 60 11/09/17 22:33 Resp 18 11/09/17 22:33 BP 136/62 11/09/17 22:33 Pulse Ox 96 11/09/17 22:33 - Labs Result Diagrams: 11/09/17 06:30 11/09/17 06:30 Labs: Laboratory Results - last 24 hr 11/09/17 11/09/17 06:30 06:30 WBC 11.6 H RBC 3.19 L Hgb 9.8 L Hct 30.1 L MCV 94.4 MCH 30.7 MCHC 32.6 RDW 14.4 Plt Count 194 MPV 9.9 Sodium 144 Potassium 3.2 L Chloride 105 Carbon Dioxide 29 Anion Gap 13 BUN 25 H Creatinine 1.3 H Est GFR ( Amer) 47 Est GFR (Non-Af Amer) 39 Random Glucose 136 H Calcium 8.4 Magnesium 2.1 Attending/Attestation - Attestation I have personally seen and examined this patient.: Yes I have fully participated in the care of the patient.: Yes I have reviewed all pertinent clinical information: Yes Notes (Text): This is an addendum to GI progress report dictated by the GI Fellow.The patient was seen and examined earlier. Medical records, lab studies, imagings were reviewed. Last 24 hours events reviewed. Agreed with the above treatment plan as outlined in GI Fellow 's notes the with the addition of the following 11/10/17 00:06
--- NOTE | 2017-11-09 17:22 | CT ---
PROCEDURE: CT Abdomen and Pelvis with contrast HISTORY: change in bowel habits, diarrhea COMPARISON: None. TECHNIQUE: Oral contrast only. Radiation dose: Total exam DLP = 410.63 mGy-cm. This CT exam was performed using one or more of the following dose reduction techniques: Automated exposure control, adjustment of the mA and/or kV according to patient size, and/or use of iterative reconstruction technique. FINDINGS: LOWER THORAX: Unremarkable. LIVER: Focal mass in the right hepatic lobe of uncertain etiology and significance. Mass resides in the right lobe measures 2.1 x 3.1 cm. There appears to be an adjacent, smaller mass better visualized on coronal sequences measuring 1.4 cm. No additional hepatic masses. Incidental subcentimeter hepatic cysts. GALLBLADDER AND BILE DUCTS: Cholelithiasis without CT evidence of acute cholecystitis. PANCREAS: Unremarkable. No gross lesion or ductal dilatation. SPLEEN: Unremarkable. ADRENALS: Unremarkable. No mass. KIDNEYS AND URETERS: Unremarkable. No hydronephrosis. No solid mass. Incidental finding(s): Upper pole cyst right kidney 2.4 cm. Right lower pole nonobstructing calculus 4 mm. Additional punctate calcifications scattered throughout both kidneys are difficult to discriminate from extensive renal arterial vascular calcifications. She VASCULATURE: Unremarkable. No aortic aneurysm. BOWEL: Diffuse colonic distention. This extends from the rectum to the cecum. There is a mobile cecum without evidence of cecal volvulus. APPENDIX: A normal appendix is not visualized. No secondary signs to suggest appendicitis. PERITONEUM: Unremarkable. No free fluid. No free air. LYMPH NODES: Unremarkable. No enlarged lymph nodes. BLADDER: Unremarkable. REPRODUCTIVE: Unremarkable. BONES: No acute fracture. OTHER FINDINGS: None. IMPRESSION: Diffuse colonic distention without obstructing lesion. Cholelithiasis without CT evidence of acute cholecystitis. Additional benign and/or incidental findings described above.
[2017-11-10] MEDS: Levothyroxine 88 MCG TAB PO SCH (10:49)
[2017-11-10] MEDS: Cilostazol 50 mg Tab UD PO SCH (10:49)
[2017-11-10 11:47] LABS: IRON 42 ug/dL (45-180)
[2017-11-10 11:56] LABS: % IRON SATURATION 17 % (20-55); TOTAL IRON BINDING CAPACITY 243 ug/dL (265-497)
[2017-11-10] MEDS: Sodium Chloride 0.9% 1,000 ML IV SCH (13:20)
[2017-11-11] MEDS: Cilostazol 50 mg Tab UD PO SCH (11:01)
[2017-11-11] MEDS: Levothyroxine 88 MCG TAB PO SCH (11:02)
--- NOTE | 2017-11-11 12:59 | PN ---
DATE: 11/11/2017 ORTHOPEDIC FOLLOWUP REPORT LOCATION: In room 566, bed 1. SUBJECTIVE: Patient feels much better with the previous effusion of her left knee, which turned out to be hemarthrosis without an underlying stress fracture by x-ray. She has no pain. She cannot ambulate because of her weakness of her left lower extremity from CVA and heel cord contracture. Has no potential to ambulate even in the room, but she can do transfers with help. Get on the bed, chair and on the recliner, which she should do by physical therapy. We will try to get her up out of bed with therapy and she can put weight on her lower extremities with help and to get on a chair, but that is going to be too dangerous to ambulate because she is going to fall again and she should consider subacute rehab, have a long-term placement if there is no help at home. Jakob Rg DO
[2017-11-11] MEDS: Amylase/Lipase/Protease 5,000 Units ECC PO SCH ×2 (15:45→18:44)
--- NOTE | 2017-11-11 15:52 | CP.PCM.PN ---
Subjective - Date & Time of Evaluation Date of Evaluation: 11/10/17 Time of Evaluation: 10:00 - Subjective Subjective: DATE: 11/10/2017 HISTORY OF PRESENT ILLNESS: Mr. Gutierrez is an 87-year-old female admitted to the hospital with chronic diarrhea. She was taking Imodium at home. She was admitted with left knee pain. She tripped and fell out of wheel chair, injured her knees, developed a left knee swelling. CAT scan of the abdomen showed mass around 3 cm in right lobe of the liver. She was evaluated by GI, Dr. Calixto and there was also diffuse distention of colon from rectum to ileocecal junction. I discussed with Dr. 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 No marked lesions was found on the CAT scan of abdomen. She continues to have diarrhea few times a day. PAST MEDICAL HISTORY: CVA, anemia, history of blood transfusions in the past; left parotid mass, benign; history of recurrent UTIs, depression. PAST SURGICAL HISTORY: Cardiac catheterization, coronary artery disease; orthopedic surgeries. ALLERGIES: NO KNOWN DRUG ALLERGIES. HOME MEDICATIONS: Atorvastatin 40 mg daily, Coreg 12.5 mg p.o. b.i.d., Lasix 20 mg daily, aspirin 81 mg daily, Cozaar 100 mg daily, Xanax, Lactobacillus, Synthroid 88 mcg daily, tramadol 50 at bedtime, hydrochlorothiazide 25 mg daily, Imodium p.r.n. REVIEW OF SYSTEMS: As per HPI. Rest of 12-point review of systems reviewed negative. PHYSICAL EXAMINATIONA; GENERAL: Comfortable in bed, in no acute distress. VITAL SIGNS: Temperature 98.7, heart rate 70 per minute, respiratory rate 18 per minute, blood pressure 140/60, pulse ox is 96% on room air. HEENT: Pallor positive. NECK: No lymphadenopathy. CHEST: Air entry present and equal bilateral. No added sounds. CARDIOVASCULAR: S1, S2 normal. No murmur. No gallop. ABDOMEN: Soft, nontender. No hepatosplenomegaly. EXTREMITIES: No edema. CHIEF OPERATOR REFORMER: Alert and oriented x3. No focal sensorimotor deficits. SPINE: Nontender. SKIN: No petechiae. No rash LABORATORY DATA: White count 11.6, hemoglobin 9.8, hematocrit 30.1, platelet 194. Sodium 144, potassium 3.2, creatinine 1.3, magnesium 2.1. ASSESSMENT: 1. Chronic diarrhea. 2. Diffuse colonic distention. 3. Left knee pain. 4. Mass in the right lobe of the liver. 5. Anemia. PLAN: There is mass in right lobe of the liver, diffuse colonic distention without the marked lesion. I will order the tumor markers, CA-125, CEA 19.9 . CA 19.9 is elevated to 1600. She will need evaluation for pancreatic mass. Tumor markers were not back when I saw the patient today. I will discuss with the daughter regarding extend of workup for possible malignancy. . discussed with Dr. Calixto; diffuse colonic distention, he thinks that it is due to motility disorder. We will continue Imodium 2 mg p.r.n. for motility disorder. Iron studies were ordered, showed severe iron deficiency anemia, hemoglobin and hematocrit stable at 9.8, if hemoglobin declines further, to consider IV iron. B12 level is normal at 765. Creatinine is elevated at 1.3. We will continue IV hydration because she has diarrhea few times a day. Thank you Dr. Mendoza for allowing us to participate in Mr. Gutierrez's care. Marie Rodriguez MD Objective - Vital Signs/Intake and Output Vital Signs (last 24 hours): Temp Pulse Resp BP Pulse Ox 98.3 F 75 40 H 132/64 97 11/11/17 06:00 11/11/17 06:00 11/11/17 06:00 11/11/17 11:02 11/11/17 06:00 Intake and Output: 11/11/17 11/11/17 06:59 18:59 Intake Total 300 480 Balance 300 480 - Medications Medications: Current Medications Acetaminophen (Tylenol 325mg Tab) 650 mg PO Q4H PRN PRN Reason: Pain, Mild (1-3) Last Admin: 11/08/17 10:57 Dose: 650 mg Alprazolam (Xanax) 1 mg PO HS [facility] PRN Reason: Protocol Last Admin: 11/11/17 06:54 Dose: Not Given Amlodipine Besylate (Norvasc) 5 mg PO DAILY [facility] Last Admin: 11/11/17 11:02 Dose: 5 mg Amylase (Pancrease [id number] U) 5,000 unit PO TID [facility] Aspirin (Ecotrin) 81 mg PO DAILY [facility] Last Admin: 11/11/17 11:02 Dose: 81 mg Atorvastatin Calcium (Lipitor) 40 mg PO HS [facility] Last Admin: 11/10/17 21:14 Dose: 40 mg Carvedilol (Coreg) 12.5 mg PO BID [facility] Last Admin: 11/11/17 11:02 Dose: 12.5 mg Cilostazol (Pletal) 100 mg PO DAILY [facility] Last Admin: 11/11/17 11:01 Dose: 100 mg Escitalopram Oxalate (Lexapro) 10 mg PO DAILY [facility] Last Admin: 11/11/17 11:02 Dose: 10 mg Famotidine (Pepcid) 40 mg PO HS [facility] Last Admin: 11/10/17 21:14 Dose: 40 mg Furosemide (Lasix) 20 mg PO DAILY [facility] Last Admin: 11/11/17 11:02 Dose: 20 mg Heparin Sodium (Porcine) (Heparin) 5,000 units SC Q12 [facility] PRN Reason: Protocol Last Admin: 11/11/17 11:04 Dose: 5,000 units Hydrochlorothiazide (Hydrodiuril) 25 mg PO DAILY [facility] Last Admin: 11/11/17 11:02 Dose: 25 mg Sodium Chloride (Sodium Chloride 0.9%) 1,000 mls @ 60 mls/hr IV .[id number] [facility] Last Admin: 11/10/17 13:20 Dose: 60 mls/hr Levothyroxine Sodium (Synthroid) 88 mcg PO DAILY [facility] Last Admin: 11/11/17 11:02 Dose: 88 mcg Loperamide HCl (Imodium) 2 mg PO QID [facility]N PRN Reason: Diarrhea Losartan Potassium (Cozaar) 100 mg PO QPM [facility] Last Admin: 11/10/17 17:17 Dose: 100 mg Ropinirole HCl (Requip) 1 mg PO QPM [facility] Last Admin: 11/10/17 17:17 Dose: 1 mg Tramadol HCl (Ultram) 50 mg PO HS [facility] Last Admin: 11/10/17 21:14 Dose: 50 mg - Labs Labs: 11/09/17 06:30 11/11/17 12:15
[2017-11-11] MEDS: Sodium Chloride 0.9% 1,000 ML IV SCH (16:06)
--- NOTE | 2017-11-11 16:36 | PN ---
DATE: 11/11/2017 SUBJECTIVE: She is comfortable in bed, in no acute distress, eating her lunch. Diarrhea has reduced in volume. She is currently on IV fluids. Review of CAT scan of the abdomen showed multiple lesions in the liver, hypodense lesions, the largest one is 3 cm. CA 19.9 is elevated to 1600. No events overnight. No abdominal pain. REVIEW OF SYSTEMS: As per HPI. Rest of 12-point review of systems reviewed negative. PHYSICAL EXAMINATION: GENERAL: Comfortable in bed, in no acute distress. VITAL SIGNS: Temperature 98.3, heart rate 75 per minute, blood pressure 132/64, respiratory rate 20 per minute, oxygen saturation 97% on room air. HEENT: Pallor positive. NECK: No lymphadenopathy. CHEST: Air entry present and equal bilaterally. No added sounds. CARDIOVASCULAR: S1 and S2 normal. No murmur. No gallop. ABDOMEN: Soft, nontender. No hepatosplenomegaly. EXTREMITIES: No edema. CENTRAL NERVOUS SYSTEM: Alert and oriented x3. No focal sensory motor deficit. LABORATORY DATA: White count 11.6, hemoglobin 9.8, platelet count 194. Sodium 144, potassium 3.2, creatinine 1.3. Iron 42, saturation 17%. MEDICATIONS: Tylenol 650 every 4 hours p.r.n., Norvasc 5 mg daily, Pancrease enzyme, aspirin 81 mg daily, Lipitor 40 mg p.o. at bedtime, Coreg 12.5 mg p.o. b.i.d., Pletal 100 mg daily, Pepcid 40 mg daily, Lexapro 10 mg daily, Lasix 20 mg daily, heparin, Requip, Cozaar 100 mg daily, Imodium p.r.n., and tramadol at bedtime. ASSESSMENT: 1. Chronic diarrhea. 2. Hypodense liver lesions, multiple. 3. Elevated CA 19.9. 4. Diffuse distention of colon. 5. Iron-deficiency anemia. PLAN: She was scheduled to be transferred to [facility]. I discussed with the daughter the concern for hypodense liver lesions. I discussed with her telephonically. She was very agitated and started shouting on the phone. She has been upset with multiple things in the hospital yesterday. She was upset with the nursing care. Discussed with Dr. Calixto, she needs MRCP for further evaluation. The daughter wants a family meeting with her brother and herself. She was not in the hospital until late afternoon today. Patient will not be a candidate for any kind of treatment for cancer, even if the diagnosis is made. The daughter was not willing to listen to what I have to stay. She hung up the phone in middle of the conversation. Discharge to [facility] was canceled. Discussed with Dr. Calixto. Possible ERCP to be done tomorrow and discharge to [facility]. Discussed with Dr. Mendoza. Marie Rodriguez MD MTDD
--- NOTE | 2017-11-11 19:21 | CP.PCM.PN ---
Subjective - Date & Time of Evaluation Date of Evaluation: 11/11/17 Time of Evaluation: 13:00 - Subjective Subjective: episodes of diarrhea mainly post prandial. No abdominal pain Objective - Vital Signs/Intake and Output Vital Signs (last 24 hours): Temp Pulse Resp BP Pulse Ox 98.3 F 57 L 20 113/50 L 97 11/11/17 14:00 11/11/17 14:00 11/11/17 14:00 11/11/17 14:00 11/11/17 14:00 Intake and Output: 11/11/17 11/12/17 18:59 06:59 Intake Total 480 Balance 480 - Medications Medications: Current Medications Acetaminophen (Tylenol 325mg Tab) 650 mg PO Q4H PRN PRN Reason: Pain, Mild (1-3) Last Admin: 11/08/17 10:57 Dose: 650 mg Alprazolam (Xanax) 1 mg PO HS [facility] PRN Reason: Protocol Last Admin: 11/11/17 06:54 Dose: Not Given Amlodipine Besylate (Norvasc) 5 mg PO DAILY [facility] Last Admin: 11/11/17 11:02 Dose: 5 mg Amylase (Pancrease 92106 U-5000 U-28599 U) 5,000 unit PO TID [facility] Aspirin (Ecotrin) 81 mg PO DAILY [facility] Last Admin: 11/11/17 11:02 Dose: 81 mg Atorvastatin Calcium (Lipitor) 40 mg PO HS [facility] Last Admin: 11/10/17 21:14 Dose: 40 mg Carvedilol (Coreg) 12.5 mg PO BID [facility] Last Admin: 11/11/17 11:02 Dose: 12.5 mg Cilostazol (Pletal) 100 mg PO DAILY [facility] Last Admin: 11/11/17 11:01 Dose: 100 mg Escitalopram Oxalate (Lexapro) 10 mg PO DAILY [facility] Last Admin: 11/11/17 11:02 Dose: 10 mg Famotidine (Pepcid) 40 mg PO HS [facility] Last Admin: 11/10/17 21:14 Dose: 40 mg Furosemide (Lasix) 20 mg PO DAILY [facility] Last Admin: 11/11/17 11:02 Dose: 20 mg Heparin Sodium (Porcine) (Heparin) 5,000 units SC Q12 [facility] PRN Reason: Protocol Last Admin: 11/11/17 11:04 Dose: 5,000 units Hydrochlorothiazide (Hydrodiuril) 25 mg PO DAILY [facility] Last Admin: 11/11/17 11:02 Dose: 25 mg Sodium Chloride (Sodium Chloride 0.9%) 1,000 mls @ 60 mls/hr IV .[id number] [facility] Last Admin: 11/11/17 16:06 Dose: 60 mls/hr Levothyroxine Sodium (Synthroid) 88 mcg PO DAILY [facility] Last Admin: 11/11/17 11:02 Dose: 88 mcg Loperamide HCl (Imodium) 2 mg PO QID PRN PRN Reason: Diarrhea Losartan Potassium (Cozaar) 100 mg PO QPM [facility] Last Admin: 11/10/17 17:17 Dose: 100 mg Ropinirole HCl (Requip) 1 mg PO QPM [facility] Last Admin: 11/10/17 17:17 Dose: 1 mg Tramadol HCl (Ultram) 50 mg PO HS [facility] Last Admin: 11/10/17 21:14 Dose: 50 mg - Labs Labs: 11/09/17 06:30 11/11/17 12:15 - Constitutional Appears: Well, No Acute Distress - Head Exam Head Exam: ATRAUMATIC, NORMOCEPHALIC - Eye Exam Eye Exam: EOMI, PERRL - ENT Exam ENT Exam: Mucous Membranes Moist - Neck Exam Neck Exam: Full ROM, Lymphadenopathy Additional comments: left large parotid tumor - Respiratory Exam Respiratory Exam: NORMAL BREATHING PATTERN. absent: Rales, Rhonchi - Cardiovascular Exam Cardiovascular Exam: REGULAR RHYTHM, +S1, +S2 - GI/Abdominal Exam GI & Abdominal Exam: Soft, Normal Bowel Sounds. absent: Tenderness - Neurological Exam Neurological Exam: Alert, Awake, Oriented x3 Assessment and Plan - Assessment and Plan (Free Text) Assessment: this 87-year-old patient sp CVA,CAD,HTN left parotid tumor was admitted following fall . She was c/o chronic diarrhea mainly postprandial and at times she has diarrhea even when not eating. But she rarely gets up from bed at night to move her bowels CT scan showed diffuse colonic dilation. Rectal examination donot reveal any ano rectal lesion. The CT scan was reviewed multiple hepatic lesions are noticed. Significantly elevated tumor markers CA [address] was done without IV contrast pancreatic evaluation was limited. Would recommend MRI of the liver with MRCP to further evaluate Would request with no contrast in viewof chronic kidney disease Supplement potassium level I did discuss with and the nursing staff Also left a message for patients son who has POA to call back to discuss Patient was scheduled to go to snf Awaiting for call from patients family
--- NOTE | 2017-11-12 01:10 | PN ---
DATE: 11/10/2017 SUBJECTIVE: This patient was seen and evaluated earlier. The patient's daughter was at bedside. I had a detailed discussion with the patient. The patient was admitted following a fall. She has a history of chronic diarrhea. The diarrhea has worsened after eating. At times, she has diarrhea even without eating any food. This is a chronic diarrhea, and rarely gets up at the night to move her bowels. She does have also some urge urinary incontinence also. No complaints of any abdominal pain now. PHYSICAL EXAMINATION: VITAL SIGNS: She remains afebrile. Temperature is 97, pulse is 70, blood pressure is 110/53, respiration is 19, O2 saturation 95%. HEENT: Atraumatic, anicteric. 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 NECK: Supple. Otherwise, the parotid tumor mentioned above. HEART: S1 and S2 heard. LUNGS: Bilateral air entry present. ABDOMEN: Soft. No tenderness. LABORATORY DATA: Hemoglobin 9.8, hematocrit 30.1, WBC 11.6, platelets 194. Chemistry done on 11/09/2017. The patient's potassium was 3.2, and repeat one, the patient is being supplemented. IMPRESSION: This 87-year-old patient with a history of status post cerebrovascular accident, large parotid tumor, felt it was too high risk for surgery, history of hypertension, dyslipidemia, admitted following a fall. The patient does have a history of chronic diarrhea. The CT scan was done, which showed diffuse colonic distention. I did a rectal examination - failed to reveal any mass lesion. The patient does have slightly reduced tone probably. CT scan was reviewed. The patient has cephalic lesions noted also in the CAT scan. Tumor marker was ordered. The patient is scheduled to be transferred to [facility]. I did discuss with the patient's daughter. They are not very keen on doing any colonoscopic evaluation before. She said she will discuss again with her brother and make a decision. Thank you very much for allowing us to participate in the care of the patient. Clinton Calixto MD
[2017-11-12 07:15] LABS: BASO # 0.01 K/mm3 (0.0-2.0); BASO % 0.1 % (0.0-3.0); EOS # 0.3 (0.0-0.7); EOS % 2.8 % (1.5-5.0); GRAN # 5.25 (1.4-6.5); GRAN % 58.1 % (50.0-68.0); HEMOGLOBIN 10.8 g/dL (12.0-16.0); LYMPH # 2.6 (1.2-3.4); LYMPH % 29.2 % (22.0-35.0); MEAN CELL VOLUME 94.3 fl (80.0-105.0); MEAN CORPUSCULAR HGB CONC 32.9 g/dl (31.0-37.0); MEAN PLATELET VOLUME 10.4 fl (7.0-11.0); MONO # 0.9 (0.1-0.6); MONO % 9.8 % (1.0-6.0); RBC 3.48 10^6/uL (3.5-6.1); RED CELL DISTRIBUTION WIDTH 13.9 % (11.5-14.5)
[2017-11-12 07:36] LABS: CALCIUM 8.5 mg/dL (8.4-10.5)
[2017-11-12 08:30] VITALS: RESP 18
[2017-11-12] MEDS: Amylase/Lipase/Protease 5,000 Units ECC PO SCH ×3 (10:00→18:18)
--- NOTE | 2017-11-12 10:05 | CP.PCM.DIS ---
<MariposaNina - Last Filed: 11/12/17 13:12> Provider - Provider Date of Admission: 11/08/17 08:51 Attending physician: Juanito Hadley MD Primary care physician: Lorenzo Hewitt MD Consults: Ortho: Dr. Rg GI: Dr. Calixto Time Spent in preparation of Discharge (in minutes): 35 Hospital Course - Lab Results Lab Results: Micro Results 11/08/17 19:30 Stool C. difficile Antigen & Toxin A,B (M - Final Most Recent Lab Values WBC 9.0 10^3/ul (4.5-11.0) D 11/12/17 06:30 RBC 3.48 10^6/uL (3.5-6.1) L 11/12/17 06:30 Hgb 10.8 g/dL (12.0-16.0) L 11/12/17 06:30 Hct 32.8 % (36.0-48.0) L 11/12/17 06:30 MCV 94.3 fl (80.0-105.0) 11/12/17 06:30 MCH 31.0 pg (25.0-35.0) 11/12/17 06:30 MCHC 32.9 g/dl (31.0-37.0) 11/12/17 06:30 RDW 13.9 % (11.5-14.5) 11/12/17 06:30 Plt Count 234 10^3/uL (120.0-450.0) 11/12/17 06:30 MPV 10.4 fl (7.0-11.0) 11/12/17 06:30 Gran % 58.1 % (50.0-68.0) 11/12/17 06:30 Lymph % (Auto) 29.2 % (22.0-35.0) 11/12/17 06:30 Osborne % (Auto) 9.8 % (1.0-6.0) H 11/12/17 06:30 Eos % (Auto) 2.8 % (1.5-5.0) 11/12/17 06:30 Baso % (Auto) 0.1 % (0.0-3.0) 11/12/17 06:30 Gran # 5.25 (1.4-6.5) 11/12/17 06:30 Lymph # (Auto) 2.6 (1.2-3.4) 11/12/17 06:30 Osborne # (Auto) 0.9 (0.1-0.6) H 11/12/17 06:30 Eos # (Auto) 0.3 (0.0-0.7) 11/12/17 06:30 Baso # (Auto) 0.01 K/mm3 (0.0-2.0) 11/12/17 06:30 Sodium 143 mmol/L (132-148) 11/12/17 06:30 Potassium 3.8 mmol/L (3.6-5.0) 11/12/17 06:30 Chloride 106 mmol/L (98-107) 11/12/17 06:30 Carbon Dioxide 25 mmol/L (21-33) 11/12/17 06:30 Anion Gap 16 (10-20) 11/12/17 06:30 BUN 35 mg/dL (7-21) H 11/12/17 06:30 Creatinine 1.1 mg/dl (0.7-1.2) 11/12/17 06:30 Est GFR ( Amer) 57 11/12/17 06:30 Est GFR (Non-Af Amer) 47 11/12/17 06:30 Random Glucose 90 mg/dL (70-110) 11/12/17 06:30 Calcium 8.5 mg/dL (8.4-10.5) 11/12/17 06:30 Magnesium 2.1 mg/dL (1.7-2.2) 11/09/17 06:30 Iron 42 ug/dL (45-180) L 11/10/17 11:30 TIBC 243 ug/dL (265-497) L 11/10/17 11:30 % Saturation 17 % (20-55) L 11/10/17 11:30 Ferritin 111.0 ng/mL 11/10/17 11:30 Total Bilirubin 0.6 mg/dL (0.2-1.3) 11/08/17 09:50 AST 23 U/L (14-36) 11/08/17 09:50 ALT 20 U/L (7-56) 11/08/17 09:50 Alkaline Phosphatase 73 U/L (38-126) 11/08/17 09:50 Troponin I 0.07 ng/mL D 11/08/17 09:50 Total Protein 7.5 g/dL (5.8-8.3) 11/08/17 09:50 Albumin 3.7 g/dL (3.0-4.8) 11/08/17 09:50 Globulin 3.8 gm/dL 11/08/17 09:50 Albumin/Globulin Ratio 1.0 (1.1-1.8) L 11/08/17 09:50 Alpha Fetoprotein 1.3 ng/mL (0.0-7.5) 11/10/17 11:30 Carcinoembryonic Ag 28.6 ng/mL (0.0-3.0) H 11/10/17 11:30 CA 19-9 Antigen 1620 U/mL (0-37) H 11/10/17 11:30 Vitamin B12 765 pg/mL (239-931) 11/10/17 11:30 - Hospital Course Hospital Course: This is an 87yo female with past medical history of HTN, CAD, OA, Hypothyroidism , L parotid tumor, dyslipidemia, PVD (3 stents in L leg, 1 in R leg), CVA w/ L residual weakness, chronic diarrhea who was admitted for mechanical fall as well as chronic diarrhea. Patient did not have any fractures seen on imaging. She was seen by ortho who drained her L knee which had hemearthrosis from the fall. Physical therapy evaluated patient and recommended JOSE. Patient also has complained chronic diarrhea which she has had for many years. As per GI it can be secondary to a motility disorder. She had a CT A/P which showed liver lesions and CEA/Ca 19-9 were both elevated. Patient was placed on pancrease enzymes for the diarrhea. Patient has never had colonoscopy or EGD before. As per GI, patient will get MRCP prior to discharge to evaluate the liver and pancreas. I had a long discussion with the patient and her daughter about the liver lesions and what their plan of care is. We will get imaging done today and patient will be d/c to [facility]. From there, the patient and family can decide about their plans and follow up with Dr. Calixto as outpatient if they want. - Date & Time of H&P Date of H&P: 07/05/18 Time of H&P: 10:00 Discharge Exam - Head Exam Head Exam: ATRAUMATIC, NORMOCEPHALIC - Eye Exam Eye Exam: PERRL - ENT Exam ENT Exam: Mucous Membranes Moist Additional comments: L parotid tumor - Respiratory Exam Respiratory Exam: Clear to PA & Lateral, NORMAL BREATHING PATTERN, UNREMARKABLE. absent: Rales, Rhonchi, Wheezes - Cardiovascular Exam Cardiovascular Exam: REGULAR RHYTHM, +S1, +S2. absent: Gallop, Rubs, Systolic Murmur - GI/Abdominal Exam GI & Abdominal Exam: Normal Bowel Sounds, Soft, Unremarkable. absent: Mass, Rebound, Rigid, Tenderness - Extremities Exam Extremities exam: normal inspection - Neurological Exam Neurological exam: Alert, CN II-XII Intact, Oriented x3 - Skin Skin Exam: Dry, Warm Discharge Plan - Follow Up Plan Condition: GOOD Disposition: TRANSF TO SNF Instructions: Osteoporosis, Heart Healthy Diet, Preventing Falls in the Older Adult, Heart Failure, Adult (DC), Preventing Falls Referrals: Lorenzo Hewitt MD [Primary Care Provider] - <Juanito Hadley - Last Filed: 11/13/17 18:51> Provider - Provider Date of Admission: 11/08/17 08:51 Attending physician: Juanito Hadley MD Primary care physician: Lorenzo Hewitt MD Hospital Course - Lab Results Lab Results: Micro Results 11/10/17 14:25 Stool Ova and Parasite Concentrate Exam - Final 11/10/17 14:25 Stool Stool Culture - Final NO SALMONELLA, SHIGELLA OR CAMPYLOBACTER ISOLATED. 11/08/17 19:30 Stool C. difficile Antigen & Toxin A,B (M - Final Most Recent Lab Values WBC 9.0 10^3/ul (4.5-11.0) D 11/12/17 06:30 RBC 3.48 10^6/uL (3.5-6.1) L 11/12/17 06:30 Hgb 10.8 g/dL (12.0-16.0) L 11/12/17 06:30 Hct 32.8 % (36.0-48.0) L 11/12/17 06:30 MCV 94.3 fl (80.0-105.0) 11/12/17 06:30 MCH 31.0 pg (25.0-35.0) 11/12/17 06:30 MCHC 32.9 g/dl (31.0-37.0) 11/12/17 06:30 RDW 13.9 % (11.5-14.5) 11/12/17 06:30 Plt Count 234 10^3/uL (120.0-450.0) 11/12/17 06:30 MPV 10.4 fl (7.0-11.0) 11/12/17 06:30 Gran % 58.1 % (50.0-68.0) 11/12/17 06:30 Lymph % (Auto) 29.2 % (22.0-35.0) 11/12/17 06:30 Osborne % (Auto) 9.8 % (1.0-6.0) H 11/12/17 06:30 Eos % (Auto) 2.8 % (1.5-5.0) 11/12/17 06:30 Baso % (Auto) 0.1 % (0.0-3.0) 11/12/17 06:30 Gran # 5.25 (1.4-6.5) 11/12/17 06:30 Lymph # (Auto) 2.6 (1.2-3.4) 11/12/17 06:30 Osborne # (Auto) 0.9 (0.1-0.6) H 11/12/17 06:30 Eos # (Auto) 0.3 (0.0-0.7) 11/12/17 06:30 Baso # (Auto) 0.01 K/mm3 (0.0-2.0) 11/12/17 06:30 Sodium 143 mmol/L (132-148) 11/12/17 06:30 Potassium 3.8 mmol/L (3.6-5.0) 11/12/17 06:30 Chloride 106 mmol/L (98-107) 11/12/17 06:30 Carbon Dioxide 25 mmol/L (21-33) 11/12/17 06:30 Anion Gap 16 (10-20) 11/12/17 06:30 BUN 35 mg/dL (7-21) H 11/12/17 06:30 Creatinine 1.1 mg/dl (0.7-1.2) 11/12/17 06:30 Est GFR ( Amer) 57 11/12/17 06:30 Est GFR (Non-Af Amer) 47 11/12/17 06:30 Random Glucose 90 mg/dL (70-110) 11/12/17 06:30 Calcium 8.5 mg/dL (8.4-10.5) 11/12/17 06:30 Magnesium 2.1 mg/dL (1.7-2.2) 11/09/17 06:30 Iron 42 ug/dL (45-180) L 11/10/17 11:30 TIBC 243 ug/dL (265-497) L 11/10/17 11:30 % Saturation 17 % (20-55) L 11/10/17 11:30 Ferritin 111.0 ng/mL 11/10/17 11:30 Total Bilirubin 0.6 mg/dL (0.2-1.3) 11/08/17 09:50 AST 23 U/L (14-36) 11/08/17 09:50 ALT 20 U/L (7-56) 11/08/17 09:50 Alkaline Phosphatase 73 U/L (38-126) 11/08/17 09:50 Troponin I 0.07 ng/mL D 11/08/17 09:50 Total Protein 7.5 g/dL (5.8-8.3) 11/08/17 09:50 Albumin 3.7 g/dL (3.0-4.8) 11/08/17 09:50 Globulin 3.8 gm/dL 11/08/17 09:50 Albumin/Globulin Ratio 1.0 (1.1-1.8) L 11/08/17 09:50 Alpha Fetoprotein 1.3 ng/mL (0.0-7.5) 11/10/17 11:30 Carcinoembryonic Ag 28.6 ng/mL (0.0-3.0) H 11/10/17 11:30 CA 19-9 Antigen 1620 U/mL (0-37) H 11/10/17 11:30 Vitamin B12 765 pg/mL (239-931) 11/10/17 11:30 - Hospital Course Hospital Course: Pt seen and examined yesterday. This is a late entry. I have reviewed the note of the manager medical and agree with it. I have discussed the assessment and plan with the resident. I have reviewed the patient's labs and medications. Pt to get MRCP and will be sent to [facility]. GI spoke to family to update them. She will need JOSE.
[2017-11-12] MEDS: Levothyroxine 88 MCG TAB PO SCH (10:50)
[2017-11-12] MEDS: Cilostazol 50 mg Tab UD PO SCH (11:17)
--- NOTE | 2017-11-12 11:17 | MRI ---
PROCEDURE: HISTORY: attn to liver and pancreas COMPARISON: 11/09/2017 CT scan abdomen pelvis TECHNIQUE: FINDINGS: Re- demonstration of a 2.3 centimeter mass in the right hepatic lobe. Additional smaller cystic lesion measuring 5 millimeters. Hyperintense T2 lesion in the spleen measuring 9 millimeters. The pancreas, adrenal glands and kidneys are unremarkable with the exception of 1.8 centimeter right lower pole renal cyst. The gallbladder is absent. There is no significant adenopathy. The bowel loops are unremarkable. The lung bases are clear. The heart is enlarged. IMPRESSION: 2.3 centimeter nonspecific mass in the right hepatic lobe. This is nonspecific but favored to represent a malignancy.
[2017-11-12 15:17] VITALS: TEMP 99; O2SAT 96
--- NOTE | 2017-11-12 15:37 | CP.PCM.PN ---
Subjective - Date & Time of Evaluation Date of Evaluation: 11/12/17 Time of Evaluation: 10:00 - Subjective Subjective: PGY-4 GI fellow prog note Pt states will with some diarrhea. Eager for ultimate DC and MRI. 5 point ROS negative other than above Objective - Vital Signs/Intake and Output Vital Signs (last 24 hours): Temp Pulse Resp BP Pulse Ox 99 F 55 L 18 105/55 L 96 11/12/17 14:00 11/12/17 14:00 11/12/17 14:00 11/12/17 14:00 11/12/17 14:00 Intake and Output: 11/12/17 11/12/17 06:59 18:59 Intake Total 540 Balance 540 - Medications Medications: Current Medications Acetaminophen (Tylenol 325mg Tab) 650 mg PO Q4H PRN PRN Reason: Pain, Mild (1-3) Last Admin: 11/08/17 10:57 Dose: 650 mg Amlodipine Besylate (Norvasc) 5 mg PO DAILY [facility] Last Admin: 11/12/17 10:51 Dose: 5 mg Amylase (Pancrease 80276 U-5000 U-69944 U) 5,000 unit PO TID [facility] Last Admin: 11/12/17 13:53 Dose: 5,000 unit Aspirin (Ecotrin) 81 mg PO DAILY [facility] Last Admin: 11/12/17 10:50 Dose: 81 mg Atorvastatin Calcium (Lipitor) 40 mg PO HS [facility] Last Admin: 11/11/17 21:53 Dose: 40 mg Carvedilol (Coreg) 12.5 mg PO BID [facility] Last Admin: 11/12/17 10:51 Dose: 12.5 mg Cilostazol (Pletal) 100 mg PO DAILY [facility] Last Admin: 11/12/17 11:17 Dose: 100 mg Escitalopram Oxalate (Lexapro) 10 mg PO DAILY [facility] Last Admin: 11/12/17 10:50 Dose: 10 mg Famotidine (Pepcid) 40 mg PO HS [facility] Last Admin: 11/11/17 21:53 Dose: 40 mg Furosemide (Lasix) 20 mg PO DAILY [facility] Last Admin: 11/12/17 10:51 Dose: 20 mg Heparin Sodium (Porcine) (Heparin) 5,000 units SC Q12 [facility] PRN Reason: Protocol Last Admin: 11/12/17 10:52 Dose: 5,000 units Hydrochlorothiazide (Hydrodiuril) 25 mg PO DAILY [facility] Last Admin: 11/12/17 10:51 Dose: 25 mg Sodium Chloride (Sodium Chloride 0.9%) 1,000 mls @ 60 mls/hr IV .[id number] [facility] Last Admin: 11/11/17 16:06 Dose: 60 mls/hr Levothyroxine Sodium (Synthroid) 88 mcg PO DAILY [facility] Last Admin: 11/12/17 10:50 Dose: 88 mcg Loperamide HCl (Imodium) 2 mg PO QID PRN PRN Reason: Diarrhea Losartan Potassium (Cozaar) 100 mg PO QPM [facility] Last Admin: 11/11/17 18:42 Dose: 100 mg Ropinirole HCl (Requip) 1 mg PO QPM [facility] Last Admin: 11/11/17 18:42 Dose: 1 mg Tramadol HCl (Ultram) 50 mg PO HS [facility] Last Admin: 11/11/17 21:53 Dose: 50 mg - Labs Labs: 11/12/17 06:30 11/12/17 06:30 - Constitutional Appears: Well, No Acute Distress - Head Exam Additional comments: Large L sided mandible mass - Eye Exam Eye Exam: EOMI. absent: Conjunctival injection - Respiratory Exam Respiratory Exam: NORMAL BREATHING PATTERN. absent: Accessory Muscle Use, Prolonged Expiratory Phase - GI/Abdominal Exam GI & Abdominal Exam: Soft. absent: Distended, Firm, Guarding, Tenderness Assessment and Plan - Assessment and Plan (Free Text) Assessment: Liver lesion in setting of elevated CA19-9 and CEA: Concerning for metastatic malignancy, more so pancreatic CA than colon CA. Family and pt declining colonoscopy for now. Agree to get MRI to further investigate possible pancreatic malignancy. Chronic diarrhea: >30 days in duration. Suspect related to steatorrhea given concern for pancreatic malignancy. Never had CSPY, only EGD which was reportedly normal last year around time of stroke. Plan: MRCP w/o con Pancreatic enzymes to help with likely steatorrhea
[2017-11-12 18:19] VITALS: BP 118/56; PULSE 59
== END 2017-11-12 18:45 | DRG 543 ==
LOC: ED 05:32 → ERH 08:51 → 5RNO 10:09 → ERH 10:09 → 5RNO 11:59
PROVIDERS: ADMIT Internal Medicine Nephrology; ATTEND Internal Medicine Nephrology
DX: M84.362A Stress fracture, left tibia, initial encounter for fracture (principal); I69.354 Hemiplegia and hemiparesis following cerebral infarction affecting left non-dominant side; M25.062 Hemarthrosis, left knee; M17.12 Unilateral primary osteoarthritis, left knee; M85.862 Other specified disorders of bone density and structure, left lower leg; I25.10 Atherosclerotic heart disease of native coronary artery without angina pectoris; E03.9 Hypothyroidism, unspecified; E78.5 Hyperlipidemia, unspecified; I73.9 Peripheral vascular disease, unspecified; I25.2 Old myocardial infarction; I12.9 Hypertensive chronic kidney disease with stage 1 through stage 4 chronic kidney disease, or unspecified chronic kidney disease; N18.9 Chronic kidney disease, unspecified; D49.0 Neoplasm of unspecified behavior of digestive system; D50.9 Iron deficiency anemia, unspecified; E87.6 Hypokalemia; K21.9 Gastro-esophageal reflux disease without esophagitis; K52.9 Noninfective gastroenteritis and colitis, unspecified; K76.9 Liver disease, unspecified; M21.379 Foot drop, unspecified foot; N39.41 Urge incontinence; W01.0XXA Fall on same level from slipping, tripping and stumbling without subsequent striking against object, initial encounter; Z79.82 Long term (current) use of aspirin; Z79.899 Other long term (current) drug therapy; Z87.440 Personal history of urinary (tract) infections; Z87.891 Personal history of nicotine dependence; Z95.5 Presence of coronary angioplasty implant and graft; Z98.42 Cataract extraction status, left eye

== ENCOUNTER 2017-11-26 20:26 | Inpatient (IN) | payer MEDICARE, BC, OTHER ==
[2017-11-26] MEDS: Sodium Chloride 0.9% 1,000 ML IV SCH (21:21)
[2017-11-26 21:28] LABS: BASO # 0.01 K/mm3 (0.0-2.0); BASO % 0.1 % (0.0-3.0); EOS # 0.3 (0.0-0.7); EOS % 3.8 % (1.5-5.0); GRAN # 5.54 (1.4-6.5); GRAN % 70.7 % (50.0-68.0); HEMOGLOBIN 9.5 g/dL (12.0-16.0); LYMPH # 1.4 (1.2-3.4); LYMPH % 17.2 % (22.0-35.0); MEAN CELL VOLUME 93.8 fl (80.0-105.0); MEAN CORPUSCULAR HEMOGLOBIN 31.3 pg (25.0-35.0); MEAN CORPUSCULAR HGB CONC 33.3 g/dl (31.0-37.0); MEAN PLATELET VOLUME 9.6 fl (7.0-11.0); MONO # 0.6 (0.1-0.6); MONO % 8.2 % (1.0-6.0); RBC 3.04 10^6/uL (3.5-6.1); RED CELL DISTRIBUTION WIDTH 14.1 % (11.5-14.5); WHITE BLOOD COUNT 7.8 10^3/ul (4.5-11.0)
[2017-11-26 21:44] LABS: ALB/GLOB RATIO 0.9 (1.1-1.8); ALBUMIN 3.4 g/dL (3.0-4.8); CALCIUM 8.5 mg/dL (8.4-10.5)
[2017-11-26 21:51] LABS: TROPONIN I 0.02 ng/mL
[2017-11-26] MEDS ORDERED: Azithromycin 500MG/NS 250ml 500 MG/250 ML BAG IVPB STA (22:45)
[2017-11-27 01:16] VITALS: BMI 22.3
--- NOTE | 2017-11-27 03:09 | ED PDOC ---
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 Patient is also accompanied by daughter, who also mentions patient has been experiencing coughing for 4 days. She was given cough syrup, however has had no relief. Also, daughter notes patient has not been herself and has had decrease PO intake. Patient denies any other complaints at this time. PMD: Dr. Hewitt Past Medical History - Provider Review Nursing Documentation Reviewed: Yes - Infectious Disease Hx of Infectious Diseases: None - Tetanus Immunization Tetanus Immunization: Unknown - Cardiac Hx Cardiac Disorders: Yes Hx Cardiac Arrhythmia: Yes Hx Congestive Heart Failure: Yes Hx Hypertension: Yes Hx Peripheral Vascular Disease: Yes Other/Comment: stents x3 - Pulmonary Hx Respiratory Disorders: No - Neurological Hx Neurological Disorder: Yes HX Cerebrovascular Accident: Yes (with left side weakness 09/2011) Hx Transient Ischemic Attacks (TIA): Yes - HEENT Hx HEENT Disorder: Yes (eyeglasses) Hx Cataracts: Yes (LEFT sx) Other/Comment: glasses, r eye lazy eye since childhood - Renal Hx Renal Disorder: No - Endocrine/Metabolic Hx Endocrine Disorders: Yes Hx Hypothyroidism: Yes - Hematological/Oncological Hx Blood Disorders: Yes Hx Anemia: Yes (blood transfusion) Hx Shingles: Yes (back "yrs ago") - Integumentary Hx Dermatological Disorder: Yes Other/Comment: large parotid mass left neck,l heel ulcer healed, skin discolorations left elbow, multiple skin discolorations r arm, b/l lower extremity brown skin discolorations, 1cm red area of skin to r buttock, - Musculoskeletal/Rheumatological Hx Musculoskeletal Disorders: Yes Hx Arthritis: Yes Hx Falls: Yes Hx Unsteady Gait: Yes Other/Comment: left hip orif, left shoulder fracture - Gastrointestinal Hx Gastrointestinal Disorders: Yes Hx Gastroesophageal Reflux: Yes Other/Comment: gastritis - Genitourinary/Gynecological Hx Genitourinary Disorders: Yes Hx Urinary Tract Infection: Yes (recent) Other/Comment: urinary urgency, pt recently was experiencing urgency incontinency especially at night+uti finished 7 days of abx, incontinency better - Psychiatric Hx Psychophysiologic Disorder: Yes Hx Anxiety: Yes Hx Depression: Yes ([facility]) Hx Substance Use: No - Past Surgical History Past Surgical History: Unable to Obtain - Surgical History Hx Cardiac Catheterization: Yes Hx Coronary Stent: Yes Hx Orthopedic Surgery: Yes (left hip ORIF) Other/Comment: sx for ulcer to left ft 2nd toe healed, bx x2 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 has had mass over 20 yrs - Anesthesia Hx Anesthesia: Yes Hx Anesthesia Reactions: No Hx Malignant Hyperthermia: No - Suicidal Assessment Feels Threatened In Home Enviroment: No Family/Social History - Physician Review Nursing Documentation Reviewed: Yes Family/Social History: No Known Family HX Smoking Status: Former Smoker Hx Alcohol Use: No Hx Substance Use: No Hx Substance Use Treatment: No Allergies/Home Meds Allergies/Adverse Reactions: Allergies No Known Allergies Allergy (Verified 03/05/17 11:36) Home Medications: Home Meds Medication Instructions Recorded Confirmed Atorvastatin Calcium [Lipitor] 40 mg PO HS 12/25/11 11/26/17 Carvedilol [Coreg] 12.5 mg PO BID 12/27/11 11/26/17 Furosemide [Lasix] 20 mg PO QOTHERDAY 05/14/15 11/26/17 Aspirin [Ecotrin] 81 mg PO DAILY 11/02/15 11/26/17 Alprazolam [Xanax] 0.5 mg PO HS 01/10/16 11/26/17 Escitalopram [Lexapro] 10 mg PO DAILY 01/10/16 11/26/17 Levothyroxine [Synthroid] 88 mcg PO DAILY 01/10/16 11/26/17 hydroCHLOROthiazide [Hydrodiuril] 25 mg PO DAILY 01/10/16 11/26/17 traMADol [Ultram] 50 mg PO HS 01/10/16 11/26/17 Acetaminophen [Tylenol 325mg tab] 2 tab PO Q4 PRN 11/26/17 11/26/17 Acetaminophen [Tylenol] 2 tab PO Q4 PRN 11/26/17 11/26/17 Ascorbic Acid [Vitamin C] 500 mg PO DAILY 11/26/17 11/26/17 Cilostazol [Pletal] 100 mg PO DAILY 11/26/17 11/26/17 Famotidine [Pepcid] 40 mg PO HS 11/26/17 11/26/17 Heparin 5,000 units SC Q12 11/26/17 11/26/17 Loperamide [Imodium] 2 mg PO Q6 PRN 11/26/17 11/26/17 Multivitamin [Multivitamins] 1 each PO DAILY 11/26/17 11/26/17 Pancreatin 5,000 unit PO TID 11/26/17 11/26/17 Potassium Chloride [K-Dur 20] 20 meq PO DAILY 11/26/17 11/26/17 Promethazine/Dextromethorphan 5 ml PO TID 11/26/17 11/26/17 [Promethazine-Dm Syrup] Silver Sulfadiazine [Silvadene] 1 ea TP DAILY 11/26/17 11/26/17 Sodium Polystyrene Sulfonate 60 ml PO DAILY 11/26/17 11/26/17 [Kalexate] Zinc [Zinc Sulfate 220 mg Cap] 220 mg PO DAILY 11/26/17 11/26/17 Review of Systems - Physician Review All systems were reviewed & negative as marked: Yes - Review of Systems Constitutional: absent: Fevers, Night Sweats Respiratory: Cough. absent: SOB Cardiovascular: absent: Chest Pain Gastrointestinal: Appetite Changes (decrease in PO intake). absent: Abdominal Pain, Diarrhea, Nausea, Vomiting Genitourinary Female: absent: Dysuria, Frequency, Urine Output Changes Neurological: absent: Headache, Dizziness Psychiatric: Other (according to patient's daughter, patient has not been herself in behavior.) Physical Exam Vital Signs Reviewed: Yes Vital Signs Temp Pulse Resp BP Pulse Ox 11/27/17 00:25 58 L 12 110/48 L 94 L 11/26/17 23:04 56 L 16 107/44 L 92 L 11/26/17 20:39 98.0 F 59 L 16 117/47 L 94 L Temperature: Afebrile Blood Pressure: Normal Pulse: Regular Respiratory Rate: Normal Appearance: Positive for: Well-Appearing, Non-Toxic, Comfortable Pain Distress: None Mental Status: Positive for: Alert and Oriented X 3 - Systems Exam Head: Present: Atraumatic, Normocephalic Pupils: Present: PERRL Extroacular Muscles: Present: EOMI Conjunctiva: Present: Normal Mouth: Present: Dry Neck: Present: Normal Range of Motion Respiratory/Chest: Present: Clear to Auscultation, Good Air Exchange. No: Respiratory Distress, Accessory Muscle Use Cardiovascular: Present: Regular Rate and Rhythm, Normal S1, S2. No: Murmurs Abdomen: No: Tenderness, Distention, Peritoneal Signs Back: Present: Normal Inspection Upper Extremity: Present: Normal Inspection. No: Cyanosis, Edema Lower Extremity: Present: Normal Inspection. No: Edema Neurological: Present: GCS=15, CN II-XII Intact, Speech Normal Skin: Present: Warm, Dry, Normal Color. No: Rashes Psychiatric: Present: Alert, Oriented x 3, Normal Insight, Normal Concentration Medical Decision Making ED Course and Treatment: 11/26/17 21:23 Impression: 87 year old female with low H&H sent from residential. Physical exam shows dry mucous membranes; rest of examination is normal. Plan: -- EKG -- Chest X-ray -- Labs -- Urinalysis -- IV Fluids -- Blood Culture -- Urine Culture -- Reassess and disposition Progress Notes: EKG: Ordered, reviewed, and independently interpreted the EKG. Rate : 57 BPM Rhythm : Sinus bradycardia. Interpretation : No ST-segment elevations or depressions, no T-wave inversions, normal intervals. Comparison : No previous EKG for comparison. - Lab Interpretations Lab Results: 11/26/17 21:23 11/26/17 21:23 Lab Results 11/26/17 21:23: Sodium 136, Potassium 3.8, Chloride 98, Carbon Dioxide 28, Anion Gap 14, BUN 39 H, Creatinine 1.6 H, Est GFR ( Amer) 37, Est GFR ( Non-Af Amer) 31, Random Glucose 107, Calcium 8.5, Magnesium 2.2, Total Bilirubin 0.4, AST 53 H D, ALT 54, Alkaline Phosphatase 99, Lactate Dehydrogenase 491, Total Creatine Kinase 124, Troponin I 0.02 D, NT-Pro-B Natriuret Pep 1230 H, Total Protein 7.2, Albumin 3.4, Globulin 3.7, Albumin/ Globulin Ratio 0.9 L 11/26/17 21:23: WBC 7.8, RBC 3.04 L, Hgb 9.5 L, Hct 28.5 L, MCV 93.8, MCH 31.3, MCHC 33.3, RDW 14.1, Plt Count 208, MPV 9.6, Gran % 70.7 H, Lymph % (Auto) 17.2 L, Dixon % (Auto) 8.2 H, Eos % (Auto) 3.8, Baso % (Auto) 0.1, Gran # 5.54, Lymph # (Auto) 1.4, Dixon # (Auto) 0.6, Eos # (Auto) 0.3, Baso # (Auto) 0.01 11/26/17 21:15: Blood Type A NEGATIVE, Antibody Screen Negative, BBK History Checked Patient has bt I have reviewed the lab results: Yes - RAD Interpretation Radiology Orders: 11/26/17 20:58 CHEST PORTABLE [RAD] Stat - Medication Orders Current Medication Orders: Sodium Chloride (Sodium Chloride 0.9%) 1,000 mls @ 100 mls/hr IV .Q10H ANDREA Last Admin: 11/26/17 21:21 Dose: 100 mls/hr eMAR Start Stop Document 11/26/17 21:21 CNR (Rec: 11/26/17 21:22 CNR [id number]) Intravenous Solution Start Date 11/26/17 Start Time 21:22 Ceftriaxone Sodium (Rocephin 1 Gram Ivpb) 1 gm in 100 mls @ 100 mls/hr IVPB DAILY ANDREA PRN Reason: Protocol Discontinued Medications Azithromycin (Zithromax 500mg In Ns) 500 mg in 250 mls @ 167 mls/hr IVPB STAT STA PRN Reason: Protocol Stop: 11/27/17 00:14 Last Admin: 11/26/17 22:59 Dose: 167 mls/hr eMAR Start Stop Document 11/26/17 22:59 CNR (Rec: 11/26/17 23:00 CNR [id number]) Intravenous Solution Start Date 11/26/17 Start Time 23:00 - Scribe Statement The provider has reviewed the documentation as recorded by the Benito Bryan Provider Scribe Attestation: All medical record entries made by the Scribe were at my direction and personally dictated by me. I have reviewed the chart and agree that the record accurately reflects my personal performance of the history, physical exam, medical decision making, and the department course for this patient. I have also personally directed, reviewed, and agree with the discharge instructions and disposition. Disposition/Present on Arrival - Present on Arrival Any Indicators Present on Arrival: No History of DVT/PE: No History of Uncontrolled Diabetes: No Urinary Catheter: No History of Decub. Ulcer: No History Surgical Site Infection Following: None - Disposition Have Diagnosis and Disposition been Completed?: Yes Diagnosis: Dehydration, Pneumonia, Altered mental status Disposition: HOSPITALIZED Disposition Time: 22:10 Condition: FAIR
--- NOTE | 2017-11-27 06:59 | CP.PCM.HP ---
<Nina Monge - Last Filed: 11/27/17 15:21> History of Present Illness - History of Present Illness History of Present Illness: H&P for Kellee Pérez PGY3 This is an 87yo female with past medical history of HTN, CAD, OA, hypothyroidism , PVD, CVA, falls, liver mass, chronic diarrhea, chronic L parotid mass who was sent from [facility] for confusion and cough. Patient states she had a cough with clear mucus for one week. She also complained of sore throat and runny nose. Patient's family said she has been confused lately as well, but patient was a good historian. She denies fever, chills, chest pain or shortness of breath, nausea/vomiting, dysuria/hematuria, numbness/tingling, rash. Patient does complain of diarrhea which is chronic. Of note, she was recently admitted to [facility] for [place] and was sent to [facility] for further rehabilitation. At [facility] , patient was found to have a liver mass suspicious for malignancy. At the time , we discussed with the patient at length if she would like to pursue the mass in the liver further and the patient reports she needed more time to think about it. I spoke with the daughter today who is concerned of her mother's liver mass and would like the oncologist to evaluate her mother again. Past medical history: HTN, CAD, OA, Hypothyroidism, dyslipidemia, PVD (3 stents in L leg, 1 in R leg), CVA w/ L residual weakness, chronic diarrhea Past surgical history: L hip fx w/ pin Home meds: Reviewed as per MAR Allergies: NKDA Social history: Denies EtOH or drug use. Lives with family. Patient uses wheel chair, but also can use walker. Family history: Uncle: pancreatic cancer Present on Admission - Present on Admission Any Indicators Present on Admission: No Review of Systems - Review of Systems All systems: reviewed and no additional remarkable complaints except Review of Systems: 12 point ROS reviewed as per HPI and is otherwise negative. Past Patient History - Infectious Disease Hx of Infectious Diseases: None - Tetanus Immunizations Tetanus Immunization: Unknown - Past Medical History & Family History Past Medical History?: Yes - Past Social History Smoking Status: Former Smoker - CARDIAC Hx Cardiac Disorders: Yes Hx Cardia Arrhythmia: Yes Hx Congestive Heart Failure: Yes Hx Hypertension: Yes Hx Peripheral Vascular Disease: Yes Other/Comment: stents x3 - PULMONARY Hx Respiratory Disorders: No - NEUROLOGICAL Hx Neurological Disorder: Yes HX Cerebrovascular Accident: Yes (with left side weakness 09/2011) Hx Transient Ischemic Attacks (TIA): Yes - HEENT Hx HEENT Problems: Yes (eyeglasses) Hx Cataracts: Yes (LEFT sx) Other/Comment: glasses, r eye lazy eye since childhood - RENAL Hx Chronic Kidney Disease: No - ENDOCRINE/METABOLIC Hx Endocrine Disorders: Yes Hx Hypothyroidism: Yes - HEMATOLOGICAL/ONCOLOGICAL Hx Blood Disorders: Yes Hx Anemia: Yes (blood transfusion) Hx Shingles: Yes (back "yrs ago") - INTEGUMENTARY Hx Dermatological Problems: Yes Other/Comment: large parotid mass left neck,l heel ulcer healed, skin discolorations left elbow, multiple skin discolorations r arm, b/l lower extremity brown skin discolorations, 1cm red area of skin to r buttock, - MUSCULOSKELETAL/RHEUMATOLOGICAL Hx Musculoskeletal Disorders: Yes Hx Arthritis: Yes Hx Falls: Yes Hx Unsteady Gait: Yes Other/Comment: left hip orif, left shoulder fracture - GASTROINTESTINAL Hx Gastrointestinal Disorders: Yes Hx Gastroesophageal Reflux: Yes Other/Comment: gastritis - GENITOURINARY/GYNECOLOGICAL Hx Genitourinary Disorders: Yes Hx Urinary Tract Infection: Yes (recent) Other/Comment: urinary urgency, pt recently was experiencing urgency incontinency especially at night+uti finished 7 days of abx, incontinency better - PSYCHIATRIC Hx Psychophysiologic Disorder: Yes Hx Anxiety: Yes Hx Depression: Yes ([facility]) Hx Substance Use: No - SURGICAL HISTORY Hx Cardiac Catheterization: Yes Hx Coronary Stent: Yes Hx Orthopedic Surgery: Yes (left hip ORIF) Other/Comment: sx for ulcer to left ft 2nd toe healed, bx x2 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 has had mass over 20 yrs - ANESTHESIA Hx Anesthesia: Yes Hx Anesthesia Reactions: No Hx Malignant Hyperthermia: No Meds Allergies/Adverse Reactions: Allergies Allergy/AdvReac Type Severity Reaction Status Date / Time No Known Allergies Allergy Verified 03/05/17 11:36 Physical Exam - Constitutional Appears: No Acute Distress - Head Exam Head Exam: ATRAUMATIC, NORMAL INSPECTION, NORMOCEPHALIC - Eye Exam Eye Exam: Normal appearance, PERRL Pupil Exam: NORMAL ACCOMODATION - ENT Exam Additional comments: Erythema of throat L parotid mass - Respiratory Exam Respiratory Exam: Clear to Auscultation Bilateral, NORMAL BREATHING PATTERN. absent: Rales, Rhonchi, Wheezes - Cardiovascular Exam Cardiovascular Exam: REGULAR RHYTHM, +S1, +S2. absent: Gallop, Rubs, Systolic Murmur - GI/Abdominal Exam GI & Abdominal Exam: Normal Bowel Sounds, Soft. absent: Mass, Rebound, Rigid, Tenderness - Extremities Exam Extremities exam: Positive for: normal inspection. Negative for: calf tenderness, pedal edema - Neurological Exam Neurological exam: Alert, CN II-XII Intact, Oriented x3 - Psychiatric Exam Psychiatric exam: Normal Affect, Normal Mood - Skin Skin Exam: Dry, Warm Results - Vital Signs Recent Vital Signs: Last Vital Signs Temp 97.9 F 11/27/17 00:33 Pulse 60 11/27/17 00:33 Resp 19 11/27/17 00:33 BP 111/46 L 11/27/17 00:33 Pulse Ox 94 L 11/27/17 00:25 - Labs Result Diagrams: 11/26/17 21:23 11/26/17 21:23 Assessment & Plan - Assessment and Plan (Free Text) Assessment: This is an 87yo female with past medical history of HTN, CAD, OA, hypothyroidism , PVD, CVA, falls, liver mass, chronic diarrhea, chronic L parotid mass 1. Cough - secondary to pneumonia (hospital acquired) and bronchitis reviewed on chest CT 2. UTI - seen on U/A - urine culture pending 3. Liver mass - of R hepatic lobe seen on previous MRCP 4. KRISTAN on CKD IIIb - secondary to dehydration 5. HTN 6. OA 7. Hypothyroidism 8. CAD 9. PVD 10. CVA w/ L residual weakness Plan: Labs and imaging reviewed. Patient is placed on Cefepime and Doxycycline per ID. Patient is on Duonebs. Will continue her home medications such as ASA, Norvasc, Lipitor, Coreg, Pletal, and Synthroid. We will continue her Pancreatin and Imodium for her chronic diarrhea and Vitamins for wound healing. Will continue IV hydration for KRISTAN. She is on DVT and GI prophylaxis. Oncology is on consult for further evaluation of her liver lesion. Case seen, discussed and reviewed with Dr. Hadley. Kellee Monge PGY3 - Date & Time Date: 11/27/17 Time: 15:20 <Juanito Hadley - Last Filed: 11/27/17 18:11> Results - Vital Signs Recent Vital Signs: Last Vital Signs Temp 97.7 F 11/27/17 07:30 Pulse 70 11/27/17 13:23 Resp 20 11/27/17 07:30 BP 138/58 L 11/27/17 11:15 Pulse Ox 94 L 11/27/17 07:30 - Labs Result Diagrams: 11/26/17 21:23 11/26/17 21:23 Labs: Laboratory Results - last 24 hr 11/27/17 11:48 Urine Color Yellow Urine Appearance Clear Urine pH 6.0 Ur Specific [place] 1.010 Urine Protein Trace H Urine Glucose (UA) Negative Urine Ketones Negative Urine Blood Negative Urine Nitrate Positive H Urine Bilirubin Negative Urine Urobilinogen 0.2 Ur Leukocyte Esterase Large H Urine RBC 0 - 2 Urine WBC 25 - 30 Ur Epithelial Cells 4 - 5 Urine Bacteria Many Assessment & Plan - Assessment and Plan (Free Text) Plan: Pt seen and examined. I have reviewed the note of the medical historian and agree with it. I have discussed the assessment and plan with the resident. I have reviewed the patient's labs and medications. She is being admitted for possible pneumonia hospital acquired. She is at [facility] for her rehab. She has chronic diarrhea. She is being seen by ID. Spoke to child support case officer about the case. The pt has a liver lesion that was diagnosed on the last hospitalization. The pt did not want a further workload. Spoke to Dr Rodriguez today.
[2017-11-27] MEDS: Sodium Chloride 0.9% 1,000 ML IV SCH ×2 (09:23→19:16)
[2017-11-27] MEDS ORDERED: Albuterol-Ipratrop 3 mg / 0.5 (3 ml) UD IH PRN (09:58)
[2017-11-27] MEDS ORDERED: cefTRIAXone 1 gm 1 GM/100 ML BAG IVPB SCH (10:00)
--- NOTE | 2017-11-27 11:07 | CT ---
Date of service: 11/27/2017 PROCEDURE: CT Chest without contrast HISTORY: cough r/o pneumonia COMPARISON: 11/09/2017 TECHNIQUE: Contiguous axial images were obtained through the chest without intravenous contrast enhancement. Sagittal and coronal reconstructions were performed. Radiation dose (DLP): 357 mGy-cm. This CT exam was performed using one or more of the following dose reduction techniques: Automated exposure control, adjustment of the mA and/or kV according to patient size, and/or use of iterative reconstruction technique. FINDINGS: LUNGS: There is peribronchial thickening and and and interstitial infiltrate at the left lung base that was not present on the prior study MEDIASTINUM: Calcification of the thoracic aorta Extensive coronary artery calcifications are seen. Mild cardiomegaly Main pulmonary artery unremarkable. No vascular congestion. No lymphadenopathy. PLEURA: No pleural fluid. No pneumothorax. BONES: No fracture. No destructive lesion. UPPER ABDOMEN: Grossly unremarkable. OTHER FINDINGS: None. IMPRESSION: Peribronchial thickening and interstitial infiltrate at the left lung base consistent with pneumonia and bronchitis
--- NOTE | 2017-11-27 11:08 | RAD ---
Date of service: 11/26/2017 HISTORY: r/o infiltrate COMPARISON: 03/05/2017 FINDINGS: LUNGS: No active pulmonary disease. PLEURA: No significant pleural effusion identified, no pneumothorax apparent. CARDIOVASCULAR: Normal. OSSEOUS STRUCTURES: No significant abnormalities. VISUALIZED UPPER ABDOMEN: Normal. OTHER FINDINGS: None. IMPRESSION: No active disease.
[2017-11-27] MEDS: Levothyroxine 88 MCG TAB PO SCH (11:15)
[2017-11-27] MEDS: Cilostazol 100 mg Tab UD PO SCH (11:15)
[2017-11-27] MEDS: Multivitamin Therapeutic Tab PO SCH (11:15)
[2017-11-27 12:03] LABS: URINE BILIRUBIN NEGATIVE (NEGATIVE); URINE BLOOD NEGATIVE (NEGATIVE); URINE GLUCOSE (UA) NEGATIVE (NEGATIVE); URINE LEUKOCYTE ESTERASE LARGE Leu/uL (NEGATIVE); URINE PROTEIN TRACE mg/dL (<30 mg/dL); URINE UROBILINOGEN 0.2 E.U./dL (<1 E.U./dL)
[2017-11-27 12:39] LABS: URINE APPEARANCE CLEAR (CLEAR); URINE COLOR YELLOW (YELLOW)
[2017-11-27 12:48] LABS: URINE BACTERIA MANY (NEG); URINE RBC 0 - 2 /hpf (0-2); URINE WBC 25 - 30 /hpf (0-6)
[2017-11-27] MEDS: Albuterol-Ipratrop 3 mg / 0.5 (3 ml) UD IH SCH ×2 (13:19→19:24)
[2017-11-27] MEDS: Amylase/Lipase/Protease 5,000 Units ECC PO SCH ×2 (14:00→18:33)
--- NOTE | 2017-11-27 15:11 | CON ---
DATE: 11/27/2017 LOCATION: The patient is seen in room 360, bed 1 earlier today. CHIEF COMPLAINT: Weakness and change in mental status times several days. HISTORY OF PRESENT ILLNESS: This is an 87-year-old female with a history of osteoarthritis, coronary artery disease, hypertension, myocardial infarction, peripheral artery disease, peripheral neuropathy, cerebrovascular accident, renal failure in the past, hypothyroidism, who has had a left leg angio in the past with stent placement and has had a facial impetigo in the past. On this admission, the patient is admitted with weakness, was seen in the emergency room by . The patient was sent from the long term because of anemia and weakness. There has been no fevers and chills reported. No chest pain. REVIEW OF SYSTEMS: Twelve-point review systems is reported. There has been no fevers. No chills. There is mild shortness of breath and minimal cough. No abdominal pain, diarrhea or constipation. No bright red blood per rectum. No melena. PAST MEDICAL HISTORY: Significant for congestive heart failure, coronary artery disease, myocardial infarction, peripheral artery disease, peripheral neuropathy, osteoarthritis, hypertension, cerebrovascular accident with one-sided weakness, renal failure, hypothyroidism, facial impetigo. PAST SURGICAL HISTORY: Significant for left leg angio with stent placement and the patient also had left hip ORIF and the patient also had right leg stent placement. ALLERGIES: THE PATIENT HAS NO KNOWN ALLERGIES. MEDICATIONS AT HOME: Reveals the patient was from a long term include tramadol, Synthroid, Lasix, Pepcid. PHYSICAL EXAMINATION: GENERAL: On exam, the patient is in bed, appearing weak with a temperature of 98, heart rate of 70, respiratory rate of 20, BMI of 22, blood pressure is 130/80, O2 saturation is 92% saturation. HEENT: Examination of HEENT is unremarkable. NECK: Supple. LUNGS: Have decreased breath sounds. HEART: Normal S1, S2. ABDOMEN: Soft, nontender. Rebound or guarding. LABORATORY DATA: Laboratory examination reveals the patient to have a white count of 7.8, hemoglobin of 9, platelets of 208. Chemistries reveals a BUN of 39, creatinine is 1.6, it was 1.1 in 11/2017. The BNP is 1230. AST is 53. Urinalysis is noted with 25-30 WBCs. The patient had an echo in 2015, which showed an ejection fraction of 57%. The patient had a CAT scan of the chest. There is interstitial infiltrates in the left lung consistent with a pneumonia. We will do the chest x-ray. It was reported to be negative. ASSESSMENT AND PLAN: An 87-year-old female presented with weakness and cough and hypoxia. #1 is left-sided healthcare-associated pneumonia with acute kidney injury with creatinine changed from 1.1 to 1.6 with acute diastolic congestive heart failure on top of chronic congestive heart failure with urinary tract infection. Blood culture, urine culture, sputum cultures will be ordered. We will check on the procalcitonin, which will be ordered. We will start the patient empirically on doxycycline and cefepime pending panculture results, procalcitonin results, urine and blood, sputum culture results. We will make further recommendations upon availability of initial test. Rich Bonilla MD
--- NOTE | 2017-11-27 16:26 | CARD ---
APPROVED REPORT Date of service: 11/26/2017 EKG Measurement Heart [id number] <Conclusion> Sinus bradycardia Inferior infarct, age undetermined Abnormal ECG
[2017-11-27] MEDS: Cefepime 1gm in NS 100ml 1 GM/100 ML BAG IVPB SCH (21:06)
[2017-11-28] MEDS: Albuterol-Ipratrop 3 mg / 0.5 (3 ml) UD IH SCH ×4 (01:48→20:23)
[2017-11-28] MEDS: Sodium Chloride 0.9% 1,000 ML IV SCH (05:05)
--- NOTE | 2017-11-28 05:13 | CP.PCM.PN ---
<Nina Monge - Last Filed: 11/28/17 10:42> Subjective - Date & Time of Evaluation Date of Evaluation: 11/28/17 Time of Evaluation: 07:00 - Subjective Subjective: Medicine Progress Note for Kellee Mckoy PGY3 Patient seen and examined at bedside. There were no acute overnight events as per nursing staff. Patient reports her cough has improved since yesterday but is still there. She did have a coughing fit last night, but slept well. She also reports her diarrhea has improved. She denies chest pain, shortness of breath, nausea/vomiting, fever/chills, dysuria, hematuria, urinary frequency, numbness/tingling. Patient reports to me she is concerned about her family placing her in a home and is concerned they are trying to sell her house and take advantage of her. Objective - Vital Signs/Intake and Output Vital Signs (last 24 hours): Temp Pulse Resp BP Pulse Ox 99.2 F 73 19 139/82 95 11/27/17 18:00 11/27/17 18:32 11/27/17 18:00 11/27/17 18:32 11/27/17 18:00 Intake and Output: 11/27/17 11/28/17 18:59 06:59 Intake Total 780 Output Total 700 Balance 80 - Medications Medications: Current Medications Albuterol/Ipratropium (Duoneb 3 Mg/0.5 Mg (3 Ml) Ud) 3 ml IH Q2H PRN PRN Reason: Shortness of Breath Albuterol/Ipratropium (Duoneb 3 Mg/0.5 Mg (3 Ml) Ud) 3 ml IH [id number] [facility] [place] Last Admin: 11/28/17 01:48 Dose: 3 ml Alprazolam (Xanax) 0.5 mg PO HS [facility] PRN Reason: Protocol Last Admin: 11/27/17 21:06 Dose: 0.5 mg Amlodipine Besylate (Norvasc) 5 mg PO DAILY [facility] [place] Last Admin: 11/27/17 11:15 Dose: 5 mg Amylase (Pancrease 90401 [id number] U) 5,000 unit PO TID [facility] [place] Last Admin: 11/27/17 18:33 Dose: 5,000 unit Ascorbic Acid (Vitamin C 500 Mg Tab) 500 mg PO DAILY [facility] [place] Last Admin: 11/27/17 11:16 Dose: 500 mg Aspirin (Ecotrin) 81 mg PO DAILY [facility] [place] Last Admin: 11/27/17 11:15 Dose: 81 mg Atorvastatin Calcium (Lipitor) 40 mg PO HS [facility] [place] Last Admin: 11/27/17 21:05 Dose: 40 mg Carvedilol (Coreg) 12.5 mg PO BID [facility] [place] Last Admin: 11/27/17 18:32 Dose: 12.5 mg Cilostazol (Pletal) 100 mg PO DAILY [facility] [place] Last Admin: 11/27/17 11:15 Dose: 100 mg Doxycycline Hyclate (Doryx) 100 mg PO Q12 [facility] [place] PRN Reason: Protocol Stop: 12/06/17 22:01 Last Admin: 11/27/17 21:05 Dose: 100 mg Escitalopram Oxalate (Lexapro) 10 mg PO DAILY [facility] [place] Last Admin: 11/27/17 11:15 Dose: 10 mg Famotidine (Pepcid) 20 mg PO HS [facility] [place] Last Admin: 11/27/17 21:06 Dose: 20 mg Furosemide (Lasix) 20 mg PO QOTHERDAY [facility] [place] Last Admin: 11/27/17 11:15 Dose: 20 mg Heparin Sodium (Porcine) (Heparin) 5,000 units SC Q12 [facility] PRN Reason: Protocol Last Admin: 11/27/17 21:06 Dose: 5,000 units Cefepime HCl (Maxipime 1gm) 1 gm in 100 mls @ 100 mls/hr IVPB Q12 [facility] PRN Reason: Protocol Stop: 12/06/17 22:01 Last Admin: 11/27/17 21:06 Dose: 100 mls/hr Sodium Chloride (Sodium Chloride 0.9%) 1,000 mls @ 75 mls/hr IV .[id number] [facility] [place] Last Admin: 11/28/17 05:05 Dose: 75 mls/hr Levothyroxine Sodium (Synthroid) 88 mcg PO DAILY [facility] [place] Last Admin: 11/27/17 11:15 Dose: 88 mcg Loperamide HCl (Imodium) 2 mg PO Q6 PRN PRN Reason: Diarrhea Multivitamins (Thera Tab) 1 tab PO DAILY [facility] [place] Last Admin: 11/27/17 11:15 Dose: 1 tab Silver Sulfadiazine (Silvadene 1% 25 Gm) 1 gm TP DAILY [facility] [place] Tramadol HCl (Ultram) 50 mg PO HS PRN PRN Reason: Pain, moderate (4-7) Zinc Sulfate (Zinc Sulfate 220 Mg Cap) 220 mg PO DAILY [facility] Last Admin: 11/27/17 11:15 Dose: 220 mg - Constitutional Appears: No Acute Distress - Head Exam Head Exam: ATRAUMATIC, NORMAL INSPECTION, NORMOCEPHALIC - Eye Exam Eye Exam: Normal appearance, PERRL Pupil Exam: NORMAL ACCOMODATION - ENT Exam ENT Exam: Mucous Membranes Moist - Neck Exam Additional comments: R parotid tumor - Respiratory Exam Respiratory Exam: Clear to Ausculation Bilateral, NORMAL BREATHING PATTERN. absent: Rales, Rhonchi, Wheezes - GI/Abdominal Exam GI & Abdominal Exam: Soft, Normal Bowel Sounds. absent: Rigid, Tenderness, Mass , Rebound - Extremities Exam Extremities Exam: absent: Calf Tenderness, Pedal Edema - Neurological Exam Neurological Exam: Alert, Awake, CN II-XII Intact, Oriented x3 - Psychiatric Exam Psychiatric exam: Normal Affect, Normal Mood - Skin Skin Exam: Dry, Warm Assessment and Plan - Assessment and Plan (Free Text) Assessment: This is an 87yo female with past medical history of HTN, CAD, OA, hypothyroidism , PVD, CVA, falls, liver mass, chronic diarrhea, chronic L parotid mass 1. Cough - secondary to pneumonia (hospital acquired) and bronchitis reviewed on chest CT 2. UTI - seen on U/A - urine culture pending 3. Liver mass - R hepatic lobe seen on previous MRCP 4. KRISTAN on CKD IIIb (resolved) - secondary to dehydration 5. Anemia (stable) - all cell lines drops- dilutional from IV fluids - Normocytic, anemia of chronic disease 5. HTN 6. OA 7. Hypothyroidism 8. CAD 9. PVD 10. CVA w/ L residual weakness Plan: KRISTAN resolved with hydration. Septic work up pending. Continue empiric antibiotics Doxycycline and Cefepime as per ID. Pancrease for diarrhea. Continue ASA, Lipitor, Norvasc, Coreg, Pletal and Synthroid. Continue multivitamins. Will d/c IV fluids. Patient is tolerating diet. Labs and imaging reviewed. Electrolytes replaced. Patient reports she will discuss her liver mass with her family, but is leaning on doing conservative management. GI is on consult. Will have social work talk to patient alone about her concerns about living in a [place] [facility] facility. Continue GI and DVT prophylaxis. Continue physical therapy. Patient had recent fall at last admission. Ortho is on consult for knee pain. Case seen, discussed and reviewed with Dr. Hadley. Kellee Monge PGY3 <Juanito Hadley - Last Filed: 11/28/17 23:30> Objective - Vital Signs/Intake and Output Vital Signs (last 24 hours): Temp Pulse Resp BP Pulse Ox 97.9 F 66 18 116/58 L 97 11/28/17 16:15 11/28/17 17:15 11/28/17 16:15 11/28/17 17:15 11/28/17 16:15 Intake and Output: 11/28/17 11/29/17 18:59 06:59 Intake Total 1200 Output Total 300 Balance 900 - Medications Medications: Current Medications Albuterol/Ipratropium (Duoneb 3 Mg/0.5 Mg (3 Ml) Ud) 3 ml IH Q2H PRN PRN Reason: Shortness of Breath Albuterol/Ipratropium (Duoneb 3 Mg/0.5 Mg (3 Ml) Ud) 3 ml IH [id number] [facility] [place] Last Admin: 11/28/17 20:23 Dose: 3 ml Alprazolam (Xanax) 0.5 mg PO HS [facility] [place] PRN Reason: Protocol Last Admin: 11/28/17 21:49 Dose: 0.5 mg Amlodipine Besylate (Norvasc) 5 mg PO DAILY [facility] [place] Last Admin: 11/28/17 09:36 Dose: 5 mg Amylase (Pancrease [id number] U-5000 [id number] U) 5,000 unit PO TID [facility] [place] Last Admin: 11/28/17 17:15 Dose: 5,000 unit Ascorbic Acid (Vitamin C 500 Mg Tab) 500 mg PO DAILY [facility] [place] Last Admin: 11/28/17 09:38 Dose: 500 mg Aspirin (Ecotrin) 81 mg PO DAILY [facility] [place] Last Admin: 11/28/17 09:34 Dose: 81 mg Atorvastatin Calcium (Lipitor) 40 mg PO HS [facility] [place] Last Admin: 11/28/17 21:48 Dose: 40 mg Carvedilol (Coreg) 12.5 mg PO BID [facility] [place] Last Admin: 11/28/17 17:15 Dose: 12.5 mg Cilostazol (Pletal) 100 mg PO DAILY [facility] [place] Last Admin: 11/28/17 09:37 Dose: 100 mg Doxycycline Hyclate (Doryx) 100 mg PO Q12 [facility] PRN Reason: Protocol Stop: 12/06/17 22:01 Last Admin: 11/28/17 21:45 Dose: 100 mg Escitalopram Oxalate (Lexapro) 5 mg PO DAILY [facility] [place] Famotidine (Pepcid) 20 mg PO HS [facility] [place] Last Admin: 11/28/17 21:49 Dose: 20 mg Furosemide (Lasix) 20 mg PO QOTHERDAY [facility] [place] Last Admin: 11/27/17 11:15 Dose: 20 mg Heparin Sodium (Porcine) (Heparin) 5,000 units SC Q12 [facility] PRN Reason: Protocol Last Admin: 11/28/17 21:46 Dose: 5,000 units Cefepime HCl (Maxipime 1gm) 1 gm in 100 mls @ 100 mls/hr IVPB Q12 [facility] PRN Reason: Protocol Stop: 12/06/17 22:01 Last Admin: 11/28/17 21:48 Dose: 100 mls/hr Levothyroxine Sodium (Synthroid) 88 mcg PO DAILY [facility] [place] Last Admin: 11/28/17 09:37 Dose: 88 mcg Loperamide HCl (Imodium) 2 mg PO Q6 PRN PRN Reason: Diarrhea Multivitamins (Thera Tab) 1 tab PO DAILY [facility] [place] Last Admin: 11/28/17 09:37 Dose: 1 tab Tramadol HCl (Ultram) 50 mg PO HS PRN PRN Reason: Pain, moderate (4-7) Zinc Sulfate (Zinc Sulfate 220 Mg Cap) 220 mg PO DAILY [facility] [place] Last Admin: 11/28/17 09:38 Dose: 220 mg - Labs Labs: 11/28/17 06:20 11/28/17 06:20 Assessment and Plan - Assessment and Plan (Free Text) Plan: Pt seen and examined. I have reviewed the note of the emergency medical services coordinator and agree with it. I have discussed the assessment and plan with the resident. I have reviewed the patient's labs and medications. Pt is on IV Abx due to her pneumonia. I spoke to her about a liver bx and she will speak with her family. She was to speak to them on the last admission when she was told abour her liver lesion. Dr Calixto also spoke to the family as well as Dr Rodriguez. Dr Calixto spoke to the pt again today.
[2017-11-28 07:04] LABS: HEMOGLOBIN 8.6 g/dL (12.0-16.0); MEAN CELL VOLUME 93.9 fl (80.0-105.0); MEAN CORPUSCULAR HEMOGLOBIN 30.7 pg (25.0-35.0); MEAN CORPUSCULAR HGB CONC 32.7 g/dl (31.0-37.0); MEAN PLATELET VOLUME 9.7 fl (7.0-11.0); RBC 2.8 10^6/uL (3.5-6.1); WHITE BLOOD COUNT 6.2 10^3/ul (4.5-11.0)
[2017-11-28 07:09] LABS: ALB/GLOB RATIO 0.8 (1.1-1.8); ALBUMIN 2.8 g/dL (3.0-4.8); CALCIUM 7.9 mg/dL (8.4-10.5)
[2017-11-28] MEDS ORDERED: Potassium Chloride 20 mEq ER Tab PO STA (08:08)
[2017-11-28] MEDS: Cefepime 1gm in NS 100ml 1 GM/100 ML BAG IVPB SCH ×2 (09:36→21:48)
[2017-11-28] MEDS: Amylase/Lipase/Protease 5,000 Units ECC PO SCH ×3 (09:36→17:15)
[2017-11-28] MEDS: Cilostazol 100 mg Tab UD PO SCH (09:37)
[2017-11-28] MEDS: Levothyroxine 88 MCG TAB PO SCH (09:37)
[2017-11-28] MEDS: Multivitamin Therapeutic Tab PO SCH (09:37)
[2017-11-28] MEDS ORDERED: Silver Sulfadiazine 1% Cream (25 gm) TP SCH (10:00)
--- NOTE | 2017-11-28 12:02 | PN ---
DATE: 11/28/2017 SUBJECTIVE: The patient is in bed, in no acute distress. She was seen earlier this morning in room 360. PHYSICAL EXAMINATION: VITAL SIGNS: Temperature is 98, blood pressure is 140/60, respiratory rate 20. HEENT: Examination is unremarkable. NECK: Supple. LUNGS: Have decreased breath sounds. HEART: Normal S1, S2. ABDOMEN: Soft, nontender. LABORATORY DATA: Reveals a white count of 6.2, hemoglobin of 8.6, platelets of 208. Chemistry reveals a BUN of 23, creatinine is down to 1.1. Urinalysis reveals significant 25-30 wbc's, many bacteria. Microbiology reveals the gram-negative ann in the urine. The blood cultures are negative. Review of orders reveal the patient's procalcitonin is pending. The patient is on doxycycline and cefepime. ASSESSMENT AND PLAN: She is an 87-year-old female with past medical history significant for osteoarthritis, coronary artery disease, hypertension, myocardial infarction, was admitted with healthcare-associated pneumonia with acute kidney injury with acute diastolic congestive heart failure on top of chronic congestive heart failure with a gram-negative ann urinary tract infection. Currently on doxycycline and cefepime day #2. Awaiting for identification of gram-negative ann in the urine and thus far, the blood cultures are reported to be negative, also awaiting for procalcitonin. We will make further recommendations upon availability of initial results. Rich Bonilla MD
--- NOTE | 2017-11-28 14:03 | CP.PCM.CON ---
<Mac Church - Last Filed: 11/28/17 15:16> History of Present Illness - History of Present Illness History of Present Illness: GI Consult Note for Dr. Calixto Service Mac Church, PGY-3 IM This is an 87 yo F with PMH of CVA w/residual L sided deficits, PVD, CAD, HTN, and non-malignant L parotid mass who represented to [facility] from snf for reported low H&H, cough, and confusion. As per the son (at bedside during interview and exam), patient prior to presentation became pale, obtunded, and was having excess diarrhea; after arrival and initial resuscitative efforts by ED reports resolution of these symptoms. Patient also complaining of cough x4 days. GI was consulted due to diarrhea and due to liver mass suspicious for carcinoma. At time of last admission, patient was found to have a suspicious liver mass on CT and MRCP, but elected against further workup. Now, during this admission, patient and family express interest in now working up the lesion. Currently, patient denies diarrhea (none since admission), nausea, emesis, melena, constipation, generalized or new focal weakness, or fevers/chills. Patient on exam is awake and alert, oriented to self/location/year, appears to have appropriate and logical insight, answering questions appropriately and following commands appropriately. All other ROS in 12-system review negative. PMH: HTN, CAD, OA, Hypothyroidism, dyslipidemia, PVD (3 stents in L leg, 1 in R leg), CVA w/ L residual weakness, chronic diarrhea PSH: L hip fx w/ pin Soc Hx: Denies EtOH or drug use. Lives with family. Patient uses wheel chair, but also can use walker. Fam Hx: pancreatic cancer (uncle) PMD: Dr. Hewitt Review of Systems - Review of Systems All systems: reviewed and no additional remarkable complaints except (as per HPI ) Past Patient History - Infectious Disease Hx of Infectious Diseases: None - Tetanus Immunizations Tetanus Immunization: Unknown - Past Medical History & Family History Past Medical History?: Yes - Past Social History Smoking Status: Former Smoker - CARDIAC Hx Cardiac Disorders: Yes Hx Congestive Heart Failure: Yes Hx Hypertension: Yes - PULMONARY Hx Respiratory Disorders: No - NEUROLOGICAL HX Cerebrovascular Accident: Yes (with left side weakness 09/2011) - HEENT Hx HEENT Problems: Yes (eyeglasses) Hx Cataracts: Yes (LEFT sx) Other/Comment: glasses, r eye lazy eye since childhood - RENAL Hx Chronic Kidney Disease: No - ENDOCRINE/METABOLIC Hx Hypothyroidism: Yes - HEMATOLOGICAL/ONCOLOGICAL Hx Blood Disorders: Yes Hx Anemia: Yes (blood transfusion) Hx Shingles: Yes (back "yrs ago") - INTEGUMENTARY Hx Dermatological Problems: Yes Other/Comment: large parotid mass left neck,l heel ulcer healed, skin discolorations left elbow, multiple skin discolorations r arm, b/l lower extremity brown skin discolorations, 1cm red area of skin to r buttock, - MUSCULOSKELETAL/RHEUMATOLOGICAL Hx Arthritis: Yes - GASTROINTESTINAL Hx Gastrointestinal Disorders: Yes Hx Gastroesophageal Reflux: Yes Other/Comment: gastritis - GENITOURINARY/GYNECOLOGICAL Hx Genitourinary Disorders: Yes Hx Urinary Tract Infection: Yes (recent) Other/Comment: urinary urgency, pt recently was experiencing urgency incontinency especially at night+uti finished 7 days of abx, incontinency better - PSYCHIATRIC Hx Psychophysiologic Disorder: Yes Hx Anxiety: Yes Hx Depression: Yes ([facility]) Hx Substance Use: No - SURGICAL HISTORY Hx Cardiac Catheterization: Yes Hx Coronary Stent: Yes Hx Orthopedic Surgery: Yes (left hip ORIF) Other/Comment: sx for ulcer to left ft 2nd toe healed, bx x2 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 has had mass over 20 yrs - ANESTHESIA Hx Anesthesia: Yes Hx Anesthesia Reactions: No Hx Malignant Hyperthermia: No Meds Allergies/Adverse Reactions: Allergies Allergy/AdvReac Type Severity Reaction Status Date / Time No Known Allergies Allergy Verified 03/05/17 11:36 - Medications Medications: Current Medications Albuterol/Ipratropium (Duoneb 3 Mg/0.5 Mg (3 Ml) Ud) 3 ml IH Q2H PRN PRN Reason: Shortness of Breath Albuterol/Ipratropium (Duoneb 3 Mg/0.5 Mg (3 Ml) Ud) 3 ml IH [id number] [facility] Last Admin: 11/28/17 13:21 Dose: 3 ml Alprazolam (Xanax) 0.5 mg PO HS [facility] PRN Reason: Protocol Last Admin: 11/27/17 21:06 Dose: 0.5 mg Amlodipine Besylate (Norvasc) 5 mg PO DAILY [facility] Last Admin: 11/28/17 09:36 Dose: 5 mg Amylase (Pancrease 60422 U-5000 [id number] U) 5,000 unit PO TID [facility] Last Admin: 11/28/17 09:36 Dose: 5,000 unit Ascorbic Acid (Vitamin C 500 Mg Tab) 500 mg PO DAILY [facility] Last Admin: 11/28/17 09:38 Dose: 500 mg Aspirin (Ecotrin) 81 mg PO DAILY [facility] Last Admin: 11/28/17 09:34 Dose: 81 mg Atorvastatin Calcium (Lipitor) 40 mg PO HS [facility] Last Admin: 11/27/17 21:05 Dose: 40 mg Carvedilol (Coreg) 12.5 mg PO BID [facility] Last Admin: 11/28/17 09:33 Dose: 12.5 mg Cilostazol (Pletal) 100 mg PO DAILY [facility] Last Admin: 11/28/17 09:37 Dose: 100 mg Doxycycline Hyclate (Doryx) 100 mg PO Q12 [facility] PRN Reason: Protocol Stop: 12/06/17 22:01 Last Admin: 11/28/17 09:33 Dose: 100 mg Escitalopram Oxalate (Lexapro) 10 mg PO DAILY [facility] Last Admin: 11/28/17 09:35 Dose: 10 mg Famotidine (Pepcid) 20 mg PO HS [facility] Last Admin: 11/27/17 21:06 Dose: 20 mg Furosemide (Lasix) 20 mg PO QOTHERDAY [facility] Last Admin: 11/27/17 11:15 Dose: 20 mg Heparin Sodium (Porcine) (Heparin) 5,000 units SC Q12 [facility] PRN Reason: Protocol Last Admin: 11/28/17 09:34 Dose: 5,000 units Cefepime HCl (Maxipime 1gm) 1 gm in 100 mls @ 100 mls/hr IVPB Q12 [facility] PRN Reason: Protocol Stop: 12/06/17 22:01 Last Admin: 11/28/17 09:36 Dose: 100 mls/hr Levothyroxine Sodium (Synthroid) 88 mcg PO DAILY [facility] Last Admin: 11/28/17 09:37 Dose: 88 mcg Loperamide HCl (Imodium) 2 mg PO Q6 PRN PRN Reason: Diarrhea Multivitamins (Thera Tab) 1 tab PO DAILY [facility] Last Admin: 11/28/17 09:37 Dose: 1 tab Tramadol HCl (Ultram) 50 mg PO HS PRN PRN Reason: Pain, moderate (4-7) Zinc Sulfate (Zinc Sulfate 220 Mg Cap) 220 mg PO DAILY [facility] Last Admin: 11/28/17 09:38 Dose: 220 mg Physical Exam - Constitutional Appears: Well, Non-toxic, No Acute Distress - Head Exam Head Exam: ATRAUMATIC, NORMOCEPHALIC - Eye Exam Eye Exam: Normal appearance. absent: Conjunctival injection, Scleral icterus Pupil Exam: absent: Fixed, Irregular - ENT Exam ENT Exam: Mucous Membranes Moist Additional comments: Large left parotid mass extending laterally - Neck Exam Neck exam: Negative for: Thyromegaly - Respiratory Exam Respiratory Exam: Clear to Auscultation Bilateral, NORMAL BREATHING PATTERN. absent: Accessory Muscle Use, Chest Wall Tenderness, Decreased Breath Sounds, Prolonged Expiratory Phase, Rales, Rhonchi, Wheezes, Respiratory Distress - Cardiovascular Exam Cardiovascular Exam: REGULAR RHYTHM, RRR, +S1, +S2. absent: Bradycardia, Tachycardia, Irregular Rhythm, JVD - GI/Abdominal Exam GI & Abdominal Exam: Normal Bowel Sounds, Soft. absent: Diminished Bowel Sounds , Distended, Firm, Guarding, Hyperactive Bowel Sounds, Hypoactive Bowel Sounds, Rigid, Tenderness - Extremities Exam Extremities exam: Positive for: normal capillary refill, normal inspection, pedal pulses present. Negative for: calf tenderness, pedal edema, tenderness - Back Exam Back exam: absent: CVA tenderness (L), CVA tenderness (R) - Neurological Exam Additional comments: awake and alert, moving all extremities spontaneously, following all commands appropriately, oriented to self/location/year - Skin Skin Exam: Dry, Intact, Normal Color, Warm Additional comments: healed bruising along L knee Results - Vital Signs Recent Vital Signs: Last Vital Signs Temp 98.1 F 11/28/17 07:47 Pulse 68 11/28/17 09:36 Resp 20 11/28/17 07:47 BP 146/62 11/28/17 09:36 Pulse Ox 94 L 11/28/17 07:47 - Labs Result Diagrams: 11/28/17 06:20 11/28/17 06:20 Labs: Laboratory Results - last 24 hr 11/28/17 11/28/17 11/28/17 06:00 06:20 06:20 WBC 6.2 D RBC 2.80 L Hgb 8.6 L Hct 26.3 L MCV 93.9 MCH 30.7 MCHC 32.7 RDW 14.0 Plt Count 208 MPV 9.7 Sodium 142 Potassium 3.3 L Chloride 108 H Carbon Dioxide 25 Anion Gap 12 BUN 23 H Creatinine 1.1 Est GFR ( Amer) 57 Est GFR (Non-Af Amer) 47 Random Glucose 82 Calcium 7.9 L Magnesium Total Bilirubin 0.2 AST 46 H ALT 53 Alkaline Phosphatase 77 Total Protein 6.2 Albumin 2.8 L Globulin 3.4 Albumin/Globulin Ratio 0.8 L Carcinoembryonic Ag Procalcitonin 0.78 H 11/28/17 11/28/17 06:20 11:03 WBC RBC Hgb Hct MCV MCH MCHC RDW Plt Count MPV Sodium Potassium Chloride Carbon Dioxide Anion Gap BUN Creatinine Est GFR ( Amer) Est GFR (Non-Af Amer) Random Glucose Calcium Magnesium 1.9 Total Bilirubin AST ALT Alkaline Phosphatase Total Protein Albumin Globulin Albumin/Globulin Ratio Carcinoembryonic Ag 43.2 H Procalcitonin Assessment & Plan - Assessment and Plan (Free Text) Assessment: This is an 87 yo F with PMH of CVA w/residual L sided deficits, PVD, CAD, HTN, and non-malignant L parotid mass who represented to [facility] [place] for reported low H&H, cough, and confusion. Acute issues have improved/resolved, now pending additional workup of recently discovered liver mass concerning for carcinoma. Plan: No current diarrhea, if resumes or becomes problematic, can consider resuming pancreatic enzymes Heme-onc also consulted, considering PET CT MRCP last admission concerning for suspicious liver lesion, elevated CEA and severely elevated Ca 19-9; reordered cancer markers Would recommend obtaining biopsy of liver mass to assess, GI attending to discuss with IR attending Patient seen, reviewed, and discussed with attending, Dr. Calixto <Clinton Calixto V - Last Filed: 11/28/17 23:25> Meds - Medications Medications: Current Medications Albuterol/Ipratropium (Duoneb 3 Mg/0.5 Mg (3 Ml) Ud) 3 ml IH Q2H PRN PRN Reason: Shortness of Breath Albuterol/Ipratropium (Duoneb 3 Mg/0.5 Mg (3 Ml) Ud) 3 ml IH [id number] [facility] Last Admin: 11/28/17 20:23 Dose: 3 ml Alprazolam (Xanax) 0.5 mg PO HS [facility] PRN Reason: Protocol Last Admin: 11/28/17 21:49 Dose: 0.5 mg Amlodipine Besylate (Norvasc) 5 mg PO DAILY [facility] Last Admin: 11/28/17 09:36 Dose: 5 mg Amylase (Pancrease 93216 U-5000 [id number] U) 5,000 unit PO TID [facility] Last Admin: 11/28/17 17:15 Dose: 5,000 unit Ascorbic Acid (Vitamin C 500 Mg Tab) 500 mg PO DAILY [facility] Last Admin: 11/28/17 09:38 Dose: 500 mg Aspirin (Ecotrin) 81 mg PO DAILY [facility] Last Admin: 11/28/17 09:34 Dose: 81 mg Atorvastatin Calcium (Lipitor) 40 mg PO HS [facility] Last Admin: 11/28/17 21:48 Dose: 40 mg Carvedilol (Coreg) 12.5 mg PO BID [facility] Last Admin: 11/28/17 17:15 Dose: 12.5 mg Cilostazol (Pletal) 100 mg PO DAILY [facility] Last Admin: 11/28/17 09:37 Dose: 100 mg Doxycycline Hyclate (Doryx) 100 mg PO Q12 [facility] PRN Reason: Protocol Stop: 12/06/17 22:01 Last Admin: 11/28/17 21:45 Dose: 100 mg Escitalopram Oxalate (Lexapro) 5 mg PO DAILY [facility] Famotidine (Pepcid) 20 mg PO HS [facility] Last Admin: 11/28/17 21:49 Dose: 20 mg Furosemide (Lasix) 20 mg PO QOTHERDAY [facility] Last Admin: 11/27/17 11:15 Dose: 20 mg Heparin Sodium (Porcine) (Heparin) 5,000 units SC Q12 [facility] PRN Reason: Protocol Last Admin: 11/28/17 21:46 Dose: 5,000 units Cefepime HCl (Maxipime 1gm) 1 gm in 100 mls @ 100 mls/hr IVPB Q12 [facility] PRN Reason: Protocol Stop: 12/06/17 22:01 Last Admin: 11/28/17 21:48 Dose: 100 mls/hr Levothyroxine Sodium (Synthroid) 88 mcg PO DAILY [facility] Last Admin: 11/28/17 09:37 Dose: 88 mcg Loperamide HCl (Imodium) 2 mg PO Q6 PRN PRN Reason: Diarrhea Multivitamins (Thera Tab) 1 tab PO DAILY [facility] Last Admin: 11/28/17 09:37 Dose: 1 tab Tramadol HCl (Ultram) 50 mg PO HS PRN PRN Reason: Pain, moderate (4-7) Zinc Sulfate (Zinc Sulfate 220 Mg Cap) 220 mg PO DAILY [facility] Last Admin: 11/28/17 09:38 Dose: 220 mg Results - Vital Signs Recent Vital Signs: Last Vital Signs Temp 97.9 F 11/28/17 16:15 Pulse 66 11/28/17 17:15 Resp 18 11/28/17 16:15 BP 116/58 L 11/28/17 17:15 Pulse Ox 97 11/28/17 16:15 - Labs Result Diagrams: 11/28/17 06:20 11/28/17 06:20 Labs: Laboratory Results - last 24 hr 11/28/17 11/28/17 11/28/17 06:00 06:20 06:20 WBC 6.2 D RBC 2.80 L Hgb 8.6 L Hct 26.3 L MCV 93.9 MCH 30.7 MCHC 32.7 RDW 14.0 Plt Count 208 MPV 9.7 Sodium 142 Potassium 3.3 L Chloride 108 H Carbon Dioxide 25 Anion Gap 12 BUN 23 H Creatinine 1.1 Est GFR ( Amer) 57 Est GFR (Non-Af Amer) 47 Random Glucose 82 Calcium 7.9 L Magnesium Total Bilirubin 0.2 AST 46 H ALT 53 Alkaline Phosphatase 77 Total Protein 6.2 Albumin 2.8 L Globulin 3.4 Albumin/Globulin Ratio 0.8 L Carcinoembryonic Ag CA 19-9 Antigen Procalcitonin 0.78 H 11/28/17 11/28/17 11/28/17 06:20 11:03 11:03 WBC RBC Hgb Hct MCV MCH MCHC RDW Plt Count MPV Sodium Potassium Chloride Carbon Dioxide Anion Gap BUN Creatinine Est GFR ( Amer) Est GFR (Non-Af Amer) Random Glucose Calcium Magnesium 1.9 Total Bilirubin AST ALT Alkaline Phosphatase Total Protein Albumin Globulin Albumin/Globulin Ratio Carcinoembryonic Ag 43.2 H CA 19-9 Antigen 4840 H Procalcitonin Attending/Attestation - Attestation I have personally seen and examined this patient.: Yes I have fully participated in the care of the patient.: Yes I have reviewed all pertinent clinical information: Yes Notes (Text): This is an addendum to GI consult report dictated by the Wood Technologist.The patient was seen and examined earlier. Medical records, lab studies, imagings were reviewed. Last 24 hours events reviewed. Agreed with the above treatment plan as outlined in Wood Technologist 's notes the with the addition of the following no further episodes of diarr On examination abdomen soft no obvious mass Previous imaging studies revi He related CA 199 with a hepatic lesion MRCP did not reveal any pancreatic lesion Plan for liver biopsy by a if the family is agreeable 11/28/17 23:15
--- NOTE | 2017-11-28 15:18 | CP.PCM.PCO ---
Addendum Addendum: 11/28/17 15:08 Patients daughter, Chloe, was called ([phone]). She states that her mother was last psychiatrically hospitalized 2 years ago at [facility] for depression and SI. Following discharge, the daughter took the patient to an appointment with outpatient psychiatrist, Dr. Camarillo. He prescribed Wellbutrin in addition to the Lexapro the patient was already taking. The patient refused to take Wellbutrin and also refused to return for subsequent appointments. Since such time, the patients PCP has been prescribing Lexapro 10 mg daily and Xanax 0.5 mg nightly. The patients daughter says she has been compliant with these medications but still displays symptoms of depression. The patients daughter reports that when [facility], they abruptly stopped the Lexapro. The daughter claims she was told this was because of a possible interacting with tramadol leading to serotonin syndrome, but the patient was asymptomatic. Since this time, the daughter notes that the patient has been more depressed and is crying often. She also often becomes confused. However, the daughter states that her mother has not verbalized anything about hurting herself or being suicidal. We will resume Lexapro at a lower dose since the patient has been off of it for at least 2 weeks.
[2017-11-28] MEDS ORDERED: MethylPREDNISolone Depo 40 mg/ml Inj IM ONE (15:25)
[2017-11-28] MEDS ORDERED: Bupivacaine 0.5% Inj(30mL) IJ ONE (15:25)
--- NOTE | 2017-11-29 02:07 | CON ---
DATE: 11/28/2017 ORTHOPEDIC REPORT HISTORY OF PRESENT ILLNESS: An 87-year-old female. Patient is complaining of left knee pain, slipped and fell prior to admission. She was in the hospital with her son, but she was alone at time, came to the hospital with sore in the left knee. 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 She did also have a left hip fracture 7 years ago, which was rx c danny troch rodding also had some arthritis of her left knee, which is still present and at that time of the hip fracture, we aspirated fluid from her knee and injected Depo-Medrol. She felt much better for the osteoarthritis. Today, she presented the same way, left knee with mild effusion, arthritis which is more advanced in the left knee, and also has left leg and arm weakness. we did arthrocentesis of the left knee with taking out 20 mL of blood. 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 So I ordered a CAT scan to her left knee without contrast and if this negative, will get her up out of bed to ambulate. FINAL DIAGNOSES: Hemarthrosis of left knee, osteoarthritis of left knee, treated with aspiration of 20 mL of blood and injected the left knee with Depo-Medrol and Marcaine, and get a CAT scan of left knee and start therapy if there is no fracture. I will reevaluate her after the CAT scan of the left knee is done. Jakob Rg DO REYNALDO
[2017-11-29] MEDS: Albuterol-Ipratrop 3 mg / 0.5 (3 ml) UD IH SCH ×4 (02:18→19:54)
[2017-11-29 06:41] LABS: BLOOD UREA NITROGEN 18 mg/dL (7-21); GFR AFRICAN-AMERICAN > 60; GFR NON-AFRICAN AMERICAN 59; HEMOGLOBIN 8.7 g/dL (12.0-16.0); MEAN CORPUSCULAR HEMOGLOBIN 30.6 pg (25.0-35.0); MEAN CORPUSCULAR HGB CONC 32.6 g/dl (31.0-37.0); MEAN PLATELET VOLUME 9.7 fl (7.0-11.0); RBC 2.84 10^6/uL (3.5-6.1); RED CELL DISTRIBUTION WIDTH 13.9 % (11.5-14.5); WHITE BLOOD COUNT 5.5 10^3/ul (4.5-11.0)
[2017-11-29 06:42] LABS: ALB/GLOB RATIO 0.8 (1.1-1.8); ALBUMIN 3.1 g/dL (3.0-4.8); ALT/SGPT 45 U/L (7-56); AST/SGOT 48 U/L (14-36); CALCIUM 8.7 mg/dL (8.4-10.5)
--- NOTE | 2017-11-29 07:35 | CON ---
DATE: 11/28/2017 HISTORY OF PRESENT ILLNESS: In short, the patient is an 87-year-old female with multiple medical issues, hypertension, coronary artery disease, osteoarthritis, hypothyroidism, CVA, falls, liver mass, chronic diarrhea, chronic left parotid mass who was admitted from the [facility] for confusion and cough. The patient was found to have pneumonia. Psych consult was called for evaluation of medications. The patient also has one previous admission to the Psychiatric Inpatient Unit here in [place]. It was in 11/2015 for depression and suicidal ideation. Back then, the patient wrote good-bye letter to her family and was found to be frustrated. The patient was discharged on Wellbutrin and Xanax with a followup appointment with Dr. Torito Camarillo. The patient was seen and examined. The patient does not remember this insurance underwriter by name, but the patient said that she remembered this insurance underwriter by her face. The patient reported that she feels fine, but the cough is still persisting. The patient reports that she is doing well. The patient reported that she has episodes of depression, but adamantly denied thoughts of harming herself or others. The patient appears to be mildly confused, but no agitation or aggression and no psychosis observed. The patient said that she has power of assistant district attorney, who is her son and gave permission for collateral information. Cte Teacher was advised to give a call and find out if the patient is taking medication, if she is following up with Dr. Torito Camarillo as it was recommended 2 years ago. VITAL SIGNS: Stable. Temperature 98.1, pulse is 68, blood pressure 146/64, respiration 20, oxygen saturation is 94. MEDICATIONS: Reviewed. The patient is on DuoNeb, Xanax 0.5 mg at the nighttime, Norvasc, , vitamin C, Lipitor, Coreg, Maxipime, also , doxycycline, Lexapro 10 mg daily, Pepcid, Lasix, heparin, Synthroid, Imodium, tramadol. LABORATORY DATA: Reviewed. Hemoglobin and hematocrit 8.6 and 26.3. Chemistry reviewed. Potassium was low at 3.3. Urinalysis reviewed. Leukocyte esterase large. Microbiology reviewed. Gram-negative ann in the urine. Stool for C. diff negative. Blood reviewed, reports reviewed. MENTAL STATUS EXAMINATION: The patient appears to be with good personal hygiene. Appears to be mildly confused. Intense eye contact. Speech was underproductive, low volume. Mood described, "I am okay. I have my moments." Thought process goal directed. Thought content, the patient denied visual, auditory, tactile hallucinations. Denied paranoid ideation. The patient denied thoughts of harming herself or others. Denied intents or plan. Insight and judgment seems to be fair. Impulses are well controlled. IMPRESSION: As per history, the patient has major depressive disorder. One Psych admission, which took place here in [place] 2 years back. The patient has multiple medical issues right now. Confusion, most likely related to delirium stage due to urinary tract infection and pneumonia. PLAN: We will obtain collateral information from [id number]. Meanwhile, we will continue Lexapro as it is, Sasha to agree with. We will follow up and advise accordingly. The patient does not appear to be psychotic. Not agitated. Not in any imminent danger to self or others. Thank you very much for letting me participate in the care of your patient. Should you have any questions, give me a call back. Georgina Chavez MD
--- NOTE | 2017-11-29 09:07 | CT ---
Date of service: 11/28/2017 PROCEDURE: CT of the left lower extremity without contrast HISTORY: lt knee hemarthrosis asperated COMPARISON: TECHNIQUE: Radiation dose: Total exam DLP = 278 mGy-cm. This CT exam was performed using one or more of the following dose reduction techniques: Automated exposure control, adjustment of the mA and/or kV according to patient size, and/or use of iterative reconstruction technique. FINDINGS: There is a small amount of air in the joint space secondary to recent aspiration. There is a linear nondisplaced transverse fracture in the lateral aspect of the proximal tibia. This extends to the articular surface posteriorly. This finding is best seen on coronal image 47 and sagittal image 61. Meniscal calcifications are seen consistent with chondrocalcinosis. IMPRESSION: There is a linear nondisplaced transverse fracture in the lateral aspect of the proximal tibia. This extends to the articular surface posteriorly.
--- NOTE | 2017-11-29 09:38 | CP.PCM.PN ---
Subjective - Date & Time of Evaluation Date of Evaluation: 11/29/17 Time of Evaluation: 07:00 - Subjective Subjective: Medicine Progress Note for Kellee Pérez PGY3 Patient seen and examined at bedside. There were no acute overnight events as per nursing staff. Patient reports her cough has improves. She does have pain in her L knee, but it has improved after ortho cortisone shot yesterday. She was unable to walk to with PT without her shoes that were at the [facility]. She has her shoes today. She denies chest pain, shortness of breath, nausea/ vomiting/diarrhea, fever/chills, numbness/tingling, dysuria/hematuria. Objective - Vital Signs/Intake and Output Vital Signs (last 24 hours): Temp Pulse Resp BP Pulse Ox 97 F L 61 20 141/65 94 L 11/29/17 08:12 11/29/17 08:12 11/29/17 08:12 11/29/17 08:12 11/29/17 08:12 Intake and Output: 11/29/17 11/29/17 06:59 18:59 Intake Total 1300 Output Total 300 Balance 1000 - Medications Medications: Current Medications Albuterol/Ipratropium (Duoneb 3 Mg/0.5 Mg (3 Ml) Ud) 3 ml IH Q2H PRN PRN Reason: Shortness of Breath Albuterol/Ipratropium (Duoneb 3 Mg/0.5 Mg (3 Ml) Ud) 3 ml IH [id number] [facility] Last Admin: 11/29/17 07:46 Dose: 3 ml Alprazolam (Xanax) 0.5 mg PO [facility] PRN Reason: Protocol Last Admin: 11/28/17 21:49 Dose: 0.5 mg Amlodipine Besylate (Norvasc) 5 mg PO DAILY [facility] Last Admin: 11/28/17 09:36 Dose: 5 mg Amylase (Pancrease 41969 U-5000 U-[id number] U) 5,000 unit PO TID [facility] Last Admin: 11/28/17 17:15 Dose: 5,000 unit Ascorbic Acid (Vitamin C 500 Mg Tab) 500 mg PO DAILY [facility] Last Admin: 11/28/17 09:38 Dose: 500 mg Aspirin (Ecotrin) 81 mg PO DAILY [facility] Last Admin: 11/28/17 09:34 Dose: 81 mg Atorvastatin Calcium (Lipitor) 40 mg PO HS [facility] Last Admin: 11/28/17 21:48 Dose: 40 mg Carvedilol (Coreg) 12.5 mg PO BID [facility] Last Admin: 11/28/17 17:15 Dose: 12.5 mg Cilostazol (Pletal) 100 mg PO DAILY [facility] Last Admin: 11/28/17 09:37 Dose: 100 mg Doxycycline Hyclate (Doryx) 100 mg PO Q12 [facility] PRN Reason: Protocol Stop: 12/06/17 22:01 Last Admin: 11/28/17 21:45 Dose: 100 mg Escitalopram Oxalate (Lexapro) 5 mg PO DAILY [facility] Famotidine (Pepcid) 20 mg PO HS [facility] Last Admin: 11/28/17 21:49 Dose: 20 mg Furosemide (Lasix) 20 mg PO QOTHERDAY [facility] Last Admin: 11/27/17 11:15 Dose: 20 mg Heparin Sodium (Porcine) (Heparin) 5,000 units SC Q12 [facility] PRN Reason: Protocol Last Admin: 11/28/17 21:46 Dose: 5,000 units Cefepime HCl (Maxipime 1gm) 1 gm in 100 mls @ 100 mls/hr IVPB Q12 [facility] PRN Reason: Protocol Stop: 12/06/17 22:01 Last Admin: 11/28/17 21:48 Dose: 100 mls/hr Levothyroxine Sodium (Synthroid) 88 mcg PO DAILY [facility] Last Admin: 11/28/17 09:37 Dose: 88 mcg Loperamide HCl (Imodium) 2 mg PO Q6 PRN PRN Reason: Diarrhea Multivitamins (Thera Tab) 1 tab PO DAILY [facility] Last Admin: 11/28/17 09:37 Dose: 1 tab Tramadol HCl (Ultram) 50 mg PO HS PRN PRN Reason: Pain, moderate (4-7) Last Admin: 11/29/17 00:25 Dose: 50 mg Zinc Sulfate (Zinc Sulfate 220 Mg Cap) 220 mg PO DAILY [facility] Last Admin: 11/28/17 09:38 Dose: 220 mg - Labs Labs: 11/29/17 05:45 11/29/17 05:45 - Constitutional Appears: No Acute Distress - Head Exam Head Exam: ATRAUMATIC, NORMAL INSPECTION, NORMOCEPHALIC - Eye Exam Eye Exam: Normal appearance, PERRL Pupil Exam: NORMAL ACCOMODATION, PERRL Additional comments: L parotid tumor - ENT Exam ENT Exam: Mucous Membranes Moist - Neck Exam Neck Exam: Normal Inspection - Respiratory Exam Respiratory Exam: Clear to Ausculation Bilateral, NORMAL BREATHING PATTERN. absent: Rhonchi, Wheezes, Stridor - Cardiovascular Exam Cardiovascular Exam: REGULAR RHYTHM, +S1, +S2. absent: Gallop, Rubs, Murmur - GI/Abdominal Exam GI & Abdominal Exam: Soft, Normal Bowel Sounds. absent: Rigid, Tenderness, Rebound - Extremities Exam Extremities Exam: Normal Capillary Refill. absent: Calf Tenderness, Pedal Edema Additional comments: L knee bandage, no pain or swelling. - Neurological Exam Neurological Exam: Alert, Awake, CN II-XII Intact - Skin Skin Exam: Dry, Intact, Warm Assessment and Plan - Assessment and Plan (Free Text) Assessment: This is an 87yo female with past medical history of HTN, CAD, OA, hypothyroidism , PVD, CVA, falls, liver mass, chronic diarrhea, chronic L parotid mass 1. Bacteremia - one culture positive for G+ cocci - can be secondary to contamination - repeat cultures pending 2. L Tibia fracture - seen on CT- can be from fall from previous stay or weight baring 3. Cough - secondary to pneumonia (hospital acquired) and bronchitis reviewed on chest CT 4. UTI - seen on U/A - urine culture positive for E.Coli 5. Liver mass - R hepatic lobe seen on previous MRCP - patient wants biopsy 6. CKD IIIb 7. Anemia (stable) - Normocytic, anemia of chronic disease 8. HTN 9. OA 10. Hypothyroidism 11. CAD 12. PVD 13. CVA w/ L residual weakness Plan: Ortho on consult. Patient had fluid removed and placed cortisone injection. Imaging and labs reviewed. Patient is on Cefepime, doxycycline, and Vancomycin. ID is on consult. Repeat septic work up pending. Continue ASA, norvasc, Coreg, Lipitor, and pletal. Continue Pancrease. GI recommendations appreciated. Dr. Orozco is out of office. Will await liver biopsy as outpatient. Will continue LexDiscussed plan with daughter. Continue physical therapy. Patient is on GI and DVT prophylaxis. Case seen, discussed and reviewed with Dr. Hadley. Kellee Monge PGY3
--- NOTE | 2017-11-29 10:20 | CP.PCM.PN ---
<Chloe Thomason - Last Filed: 11/29/17 10:51> Subjective - Date & Time of Evaluation Date of Evaluation: 11/29/17 Time of Evaluation: 09:00 - Subjective Subjective: S&E at bedside, chart reviewed, OOB to chair, denies N/V, or abdominal pain. Last BM was 2 days ago, tolerating oral intake. No acute overnight events. Objective - Vital Signs/Intake and Output Vital Signs (last 24 hours): Temp Pulse Resp BP Pulse Ox 97 F L 61 20 141/65 94 L 11/29/17 08:12 11/29/17 08:12 11/29/17 08:12 11/29/17 08:12 11/29/17 08:12 Intake and Output: 11/29/17 11/29/17 06:59 18:59 Intake Total 1300 Output Total 300 Balance 1000 - Medications Medications: Current Medications Albuterol/Ipratropium (Duoneb 3 Mg/0.5 Mg (3 Ml) Ud) 3 ml IH Q2H PRN PRN Reason: Shortness of Breath Albuterol/Ipratropium (Duoneb 3 Mg/0.5 Mg (3 Ml) Ud) 3 ml IH [id number] [facility] Last Admin: 11/29/17 07:46 Dose: 3 ml Alprazolam (Xanax) 0.5 mg PO HS [facility] PRN Reason: Protocol Last Admin: 11/28/17 21:49 Dose: 0.5 mg Amlodipine Besylate (Norvasc) 5 mg PO DAILY [facility] Last Admin: 11/28/17 09:36 Dose: 5 mg Amylase (Pancrease 46716 U-5000 U-94108 U) 5,000 unit PO TID [facility] Last Admin: 11/28/17 17:15 Dose: 5,000 unit Ascorbic Acid (Vitamin C 500 Mg Tab) 500 mg PO DAILY [facility] Last Admin: 11/28/17 09:38 Dose: 500 mg Aspirin (Ecotrin) 81 mg PO DAILY [facility] Last Admin: 11/28/17 09:34 Dose: 81 mg Atorvastatin Calcium (Lipitor) 40 mg PO HS [facility] Last Admin: 11/28/17 21:48 Dose: 40 mg Carvedilol (Coreg) 12.5 mg PO BID [facility] Last Admin: 11/28/17 17:15 Dose: 12.5 mg Cilostazol (Pletal) 100 mg PO DAILY [facility] Last Admin: 11/28/17 09:37 Dose: 100 mg Doxycycline Hyclate (Doryx) 100 mg PO Q12 [facility] PRN Reason: Protocol Stop: 12/06/17 22:01 Last Admin: 11/28/17 21:45 Dose: 100 mg Escitalopram Oxalate (Lexapro) 5 mg PO DAILY [facility] Famotidine (Pepcid) 20 mg PO HS [facility] Last Admin: 11/28/17 21:49 Dose: 20 mg Furosemide (Lasix) 20 mg PO QOTHERDAY [facility] Last Admin: 11/27/17 11:15 Dose: 20 mg Heparin Sodium (Porcine) (Heparin) 5,000 units SC Q12 [facility] PRN Reason: Protocol Last Admin: 11/28/17 21:46 Dose: 5,000 units Cefepime HCl (Maxipime 1gm) 1 gm in 100 mls @ 100 mls/hr IVPB Q12 [facility] PRN Reason: Protocol Stop: 12/06/17 22:01 Last Admin: 11/28/17 21:48 Dose: 100 mls/hr Levothyroxine Sodium (Synthroid) 88 mcg PO DAILY [facility] Last Admin: 11/28/17 09:37 Dose: 88 mcg Loperamide HCl (Imodium) 2 mg PO Q6 PRN PRN Reason: Diarrhea Multivitamins (Thera Tab) 1 tab PO DAILY [facility] Last Admin: 11/28/17 09:37 Dose: 1 tab Tramadol HCl (Ultram) 50 mg PO HS PRN PRN Reason: Pain, moderate (4-7) Last Admin: 11/29/17 00:25 Dose: 50 mg Zinc Sulfate (Zinc Sulfate 220 Mg Cap) 220 mg PO DAILY [facility] Last Admin: 11/28/17 09:38 Dose: 220 mg - Labs Labs: 11/29/17 05:45 11/29/17 05:45 - Constitutional Appears: No Acute Distress - Head Exam Head Exam: NORMOCEPHALIC - Eye Exam Eye Exam: Normal appearance. absent: Scleral icterus - ENT Exam ENT Exam: Mucous Membranes Moist Additional comments: left sided parotid mass - Neck Exam Neck Exam: Normal Inspection - Respiratory Exam Respiratory Exam: NORMAL BREATHING PATTERN. absent: Respiratory Distress - Cardiovascular Exam Cardiovascular Exam: +S1, +S2 - GI/Abdominal Exam GI & Abdominal Exam: Soft, Normal Bowel Sounds. absent: Guarding, Tenderness, Rebound - Extremities Exam Extremities Exam: absent: Calf Tenderness, Pedal Edema Additional comments: left arm/hand is contracted - Neurological Exam Neurological Exam: Alert, Awake, Oriented x3 - Skin Skin Exam: Dry, Warm Assessment and Plan - Assessment and Plan (Free Text) Assessment: ASSESSMENT: Anemia Liver mass, r/o carcinoma, last MRCP from last admission suspicious for liver lesion Elevated CA19-9/CEA Pneumonia/Bronchitis Non malignant left parotid mass H/O CVA w/ left sided weakness UTI, (+) Ecoli Diarrhea resolved, cdiff negative PLAN: on IV and oral antibiotics as per ID oncology on case, recommend PET pending eval for Liver bx w/ IR continue GI prophylaxsis on Pancrease on Heparin SQ monitor h/g and for overt GI bleeding Left message for KRISTEN Fierro to call back [phone] to discuss plans for liver BX. Seen and discussed w/ Dr. Calixto. <Clinton Calixto V - Last Filed: 11/29/17 23:10> Objective - Vital Signs/Intake and Output Vital Signs (last 24 hours): Temp Pulse Resp BP Pulse Ox 97.6 F 56 L 20 142/73 98 11/29/17 17:05 11/29/17 18:04 11/29/17 17:05 11/29/17 18:04 11/29/17 17:05 Intake and Output: 11/29/17 11/30/17 18:59 06:59 Intake Total 1100 Output Total 700 Balance 400 - Medications Medications: Current Medications Albuterol/Ipratropium (Duoneb 3 Mg/0.5 Mg (3 Ml) Ud) 3 ml IH Q2H PRN PRN Reason: Shortness of Breath Albuterol/Ipratropium (Duoneb 3 Mg/0.5 Mg (3 Ml) Ud) 3 ml IH [id number] [facility] Last Admin: 11/29/17 19:54 Dose: 3 ml Alprazolam (Xanax) 0.5 mg PO HS [facility] PRN Reason: Protocol Last Admin: 11/29/17 21:12 Dose: 0.5 mg Amlodipine Besylate (Norvasc) 5 mg PO DAILY [facility] Last Admin: 11/29/17 11:27 Dose: 5 mg Amylase (Pancrease 91179 U-5000 U-04340 U) 5,000 unit PO TID [facility] Last Admin: 11/29/17 18:05 Dose: 5,000 unit Ascorbic Acid (Vitamin C 500 Mg Tab) 500 mg PO DAILY [facility] Last Admin: 11/29/17 11:28 Dose: 500 mg Aspirin (Ecotrin) 81 mg PO DAILY [facility] Last Admin: 11/29/17 11:27 Dose: 81 mg Atorvastatin Calcium (Lipitor) 40 mg PO HS [facility] Last Admin: 11/29/17 21:10 Dose: 40 mg Carvedilol (Coreg) 12.5 mg PO BID [facility] Last Admin: 11/29/17 18:04 Dose: 12.5 mg Cilostazol (Pletal) 100 mg PO DAILY [facility] Last Admin: 11/29/17 11:27 Dose: 100 mg Doxycycline Hyclate (Doryx) 100 mg PO Q12 [facility] PRN Reason: Protocol Stop: 12/06/17 22:01 Last Admin: 11/29/17 21:07 Dose: 100 mg Escitalopram Oxalate (Lexapro) 5 mg PO DAILY [facility] Last Admin: 11/29/17 11:29 Dose: 5 mg Famotidine (Pepcid) 20 mg PO HS [facility] Last Admin: 11/29/17 21:11 Dose: 20 mg Furosemide (Lasix) 20 mg PO QOTHERDAY [facility] Last Admin: 11/29/17 11:28 Dose: 20 mg Heparin Sodium (Porcine) (Heparin) 5,000 units SC Q12 [facility] PRN Reason: Protocol Last Admin: 11/29/17 21:08 Dose: 5,000 units Cefepime HCl (Maxipime 1gm) 1 gm in 100 mls @ 100 mls/hr IVPB Q12 [facility] PRN Reason: Protocol Stop: 12/06/17 22:01 Last Admin: 11/29/17 21:10 Dose: 100 mls/hr Vancomycin HCl (Vancomycin 1gm) 1 gm in 250 mls @ 167 mls/hr IVPB Q12H [facility] PRN Reason: Protocol Last Admin: 11/29/17 22:24 Dose: 167 mls/hr Levothyroxine Sodium (Synthroid) 88 mcg PO DAILY [facility] Last Admin: 11/29/17 11:30 Dose: 88 mcg Loperamide HCl (Imodium) 2 mg PO Q6 PRN PRN Reason: Diarrhea Multivitamins (Thera Tab) 1 tab PO DAILY [facility] Last Admin: 11/29/17 11:26 Dose: 1 tab Tramadol HCl (Ultram) 50 mg PO HS PRN PRN Reason: Pain, moderate (4-7) Last Admin: 11/29/17 00:25 Dose: 50 mg Zinc Sulfate (Zinc Sulfate 220 Mg Cap) 220 mg PO DAILY [facility] Last Admin: 11/29/17 11:33 Dose: 220 mg - Labs Labs: 11/29/17 05:45 11/29/17 05:45 Attending/Attestation - Attestation I have personally seen and examined this patient.: Yes I have fully participated in the care of the patient.: Yes I have reviewed all pertinent clinical information, including history, physical exam and plan: Yes Notes (Text): This is an addendum to GI progress report dictated by Chloe Thomason APN.The patient was seen and examined earlier. Medical records, lab studies, imagings were reviewed. Last 24 hours events reviewed. Agreed with the above treatment plan as outlined in Chloe Thomason APN's notes the with the addition of the following patient is now agreeable fo liver biopsy Increasing CA 199 No obvious focal pancreatic lesion seen in the imaging studies done so for Blood culture now positive Biopsy to be scheduled as an tpatient Patient is also planned to have a PET scan as an outpatient 11/29/17 23:06
[2017-11-29] MEDS: Multivitamin Therapeutic Tab PO SCH (11:26)
[2017-11-29] MEDS: Cilostazol 100 mg Tab UD PO SCH (11:27)
[2017-11-29] MEDS: Cefepime 1gm in NS 100ml 1 GM/100 ML BAG IVPB SCH ×2 (11:30→21:10)
[2017-11-29] MEDS: Levothyroxine 88 MCG TAB PO SCH (11:30)
[2017-11-29] MEDS: Amylase/Lipase/Protease 5,000 Units ECC PO SCH ×2 (11:31→18:05)
--- NOTE | 2017-11-29 12:02 | CP.PCM.PN ---
Subjective - Date & Time of Evaluation Date of Evaluation: 11/29/17 Time of Evaluation: 09:40 - Subjective Subjective: No fevers, not in distress, comfortable on a chair, no nausea, breathing better. Objective - Vital Signs/Intake and Output Vital Signs (last 24 hours): Temp Pulse Resp BP Pulse Ox 97 F L 61 20 141/65 94 L 11/29/17 08:12 11/29/17 08:12 11/29/17 08:12 11/29/17 08:12 11/29/17 08:12 Intake and Output: 11/29/17 11/29/17 06:59 18:59 Intake Total 1300 Output Total 300 Balance 1000 - Medications Medications: Current Medications Albuterol/Ipratropium (Duoneb 3 Mg/0.5 Mg (3 Ml) Ud) 3 ml IH Q2H PRN PRN Reason: Shortness of Breath Albuterol/Ipratropium (Duoneb 3 Mg/0.5 Mg (3 Ml) Ud) 3 ml IH [id number] [facility] Last Admin: 11/29/17 07:46 Dose: 3 ml Alprazolam (Xanax) 0.5 mg PO HS [facility] PRN Reason: Protocol Last Admin: 11/28/17 21:49 Dose: 0.5 mg Amlodipine Besylate (Norvasc) 5 mg PO DAILY [facility] Last Admin: 11/28/17 09:36 Dose: 5 mg Amylase (Pancrease 47706 U-5000 U-[id number] U) 5,000 unit PO TID [facility] Last Admin: 11/28/17 17:15 Dose: 5,000 unit Ascorbic Acid (Vitamin C 500 Mg Tab) 500 mg PO DAILY [facility] Last Admin: 11/28/17 09:38 Dose: 500 mg Aspirin (Ecotrin) 81 mg PO DAILY [facility] Last Admin: 11/28/17 09:34 Dose: 81 mg Atorvastatin Calcium (Lipitor) 40 mg PO HS [facility] Last Admin: 11/28/17 21:48 Dose: 40 mg Carvedilol (Coreg) 12.5 mg PO BID [facility] Last Admin: 11/28/17 17:15 Dose: 12.5 mg Cilostazol (Pletal) 100 mg PO DAILY [facility] Last Admin: 11/28/17 09:37 Dose: 100 mg Doxycycline Hyclate (Doryx) 100 mg PO Q12 [facility] PRN Reason: Protocol Stop: 12/06/17 22:01 Last Admin: 11/28/17 21:45 Dose: 100 mg Escitalopram Oxalate (Lexapro) 5 mg PO DAILY [facility] Famotidine (Pepcid) 20 mg PO HS [facility] Last Admin: 11/28/17 21:49 Dose: 20 mg Furosemide (Lasix) 20 mg PO QOTHERDAY [facility] Last Admin: 11/27/17 11:15 Dose: 20 mg Heparin Sodium (Porcine) (Heparin) 5,000 units SC Q12 [facility] PRN Reason: Protocol Last Admin: 11/28/17 21:46 Dose: 5,000 units Cefepime HCl (Maxipime 1gm) 1 gm in 100 mls @ 100 mls/hr IVPB Q12 [facility] PRN Reason: Protocol Stop: 12/06/17 22:01 Last Admin: 11/28/17 21:48 Dose: 100 mls/hr Levothyroxine Sodium (Synthroid) 88 mcg PO DAILY [facility] Last Admin: 11/28/17 09:37 Dose: 88 mcg Loperamide HCl (Imodium) 2 mg PO Q6 PRN PRN Reason: Diarrhea Multivitamins (Thera Tab) 1 tab PO DAILY [facility] Last Admin: 11/28/17 09:37 Dose: 1 tab Tramadol HCl (Ultram) 50 mg PO HS PRN PRN Reason: Pain, moderate (4-7) Last Admin: 11/29/17 00:25 Dose: 50 mg Zinc Sulfate (Zinc Sulfate 220 Mg Cap) 220 mg PO DAILY [facility] Last Admin: 11/28/17 09:38 Dose: 220 mg - Labs Labs: 11/29/17 05:45 11/29/17 05:45 - Constitutional Appears: Non-toxic, Chronically Ill - Head Exam Head Exam: NORMAL INSPECTION - Neck Exam Neck Exam: absent: Meningismus - Respiratory Exam Respiratory Exam: Decreased Breath Sounds - Cardiovascular Exam Cardiovascular Exam: +S1, +S2 - GI/Abdominal Exam GI & Abdominal Exam: Soft. absent: Tenderness Assessment and Plan - Assessment and Plan (Free Text) Plan: Assessment left sided HCAP with possible gram positive cocci and/or gram negative bacilli and/or atypical organisms gram positive cocci bacteremia, R/O contamination S/P acute renal failure acute diastolic heart failure on top of chronic CHF consider UTI with E. coli acute left proximal tibial fracture osteoarthritis CAD Plan continue Cefepime and Doxycycline day 3 (to complete 4-7 days for pneumonia and UTI) and will start IV Vancomycin pending identification and sensitivities of the gram positive cocci in the blood - will repeat blood cx follow up further plans of Ortho for the leg fracture will monitor clinically
--- NOTE | 2017-11-29 12:07 | PN ---
DATE: 11/29/2017 FOLLOWUP NOTE SUBJECTIVE: The patient was admitted on the medical site for confusion as well as pneumonia as well as possible urinary tract infection. Psych consult was called because the patient has history of depression. The patient has admission to [facility] because the patient wrote good-bye letter, it was 2 years back. This verse writer initially saw the patient yesterday. Medications resumed. Discussed with the patient's power of computer trainer, son as well as daughter, the patient gave permission. The patient was willing to resume Lexapro which was stopped recently at the subacute rehab. Risks, benefits and alternatives discussed with the patient. The patient also presented to be mildly confused, which is related to the medical issues what she had. The patient had newly diagnosed with some liver lesions and scheduled for biopsy today. The patient was followed up today. The patient presented to be alert and oriented, pleasant, cooperative. The patient was willing to continue on Lexapro. The patient denied any side effects on that medication. Vital signs reviewed. Temperature is 97, pulse 61, blood pressure 141/65, respiration 20, oxygen saturation is 94. Medications reviewed. The patient is on DuoNeb, Xanax 0.5 mg at the nighttime scheduled, Norvasc, amylase. The patient also is on vitamin C, aspirin, Coreg, cefepime, Pletal, doxycycline, Lexapro 5 mg daily, Pepcid 20 mg at the nighttime, Lasix, heparin, Synthroid, Imodium, Ultram, vancomycin. Labs reviewed. Hemoglobin and hematocrit is 8.7 and 26.7 respectively. Chemistry reviewed. CA 19-9 antigen is elevated. Also, carcinoembryonic antigen is elevated at 43.2. Notes reviewed. MENTAL STATUS EXAMINATION: The patient presented to be alert and oriented, pleasant and cooperative, mildly confused, difficulty to stay focused and concentrate, but overall presented well. The patient is willing to continue Lexapro. Mood described as depressed. Affect was constricted, but reactive. Mood congruent. Thought process seems to be coherent and goal directed. At times, the patient had difficulty to concentrate and stay focused, which could be related to delirium stage what the patient is currently is on. Thought content, the patient denied visual, auditory, tactile hallucinations. Denied paranoid ideations. The patient denied thoughts of harming herself or others. Denies intent or plan. The patient has fair insight and judgment. IMPRESSION: Most likely, the patient is in delirium stage. Also, the patient has signs of depression. The patient has long history of depression and had one previous psychiatric admission 2 years back. The patient has multiple medical issues including new liver mass. Also the patient has pneumonia as well as urinary tract infection. The patient is on antibiotics. PLAN: Continue current management. Continue current medication. Discussed with the patient's family and power of computer trainer. Risk, benefits and alternatives were discussed with the patient as well as with the patient's family. We will follow up and advise accordingly. Dr. Grigsby will follow up on this patient tomorrow. Thank you very much for letting me participate in the care of your patient. Georgina Chavez MD
[2017-11-29] MEDS: Vancomycin 1gm in NS 250ml 1 GM/250 ML BAG IVPB SCH ×2 (14:27→22:24)
--- NOTE | 2017-11-30 05:00 | CP.PCM.PN ---
<Nina Monge - Last Filed: 11/30/17 10:15> Subjective - Date & Time of Evaluation Date of Evaluation: 11/30/17 Time of Evaluation: 07:00 - Subjective Subjective: Medicine Progress Note for Kellee Pérez PGY3 Patient seen and examined at bedside. As per nursing staff, there were no acute overnight events. Patient states her cough has improved. She was not able to walk yesterday with physical therapy. She denies chest pain, shortness of breath , nausea/vomiting/diarrhea, fever/chills, numbness/tingling, dysuria or hematuria. Objective - Vital Signs/Intake and Output Vital Signs (last 24 hours): Temp Pulse Resp BP Pulse Ox 97.6 F 56 L 20 142/73 98 11/29/17 17:05 11/29/17 18:04 11/29/17 17:05 11/29/17 18:04 11/29/17 17:05 Intake and Output: 11/29/17 11/30/17 18:59 06:59 Intake Total 1100 Output Total 700 Balance 400 - Medications Medications: Current Medications Albuterol/Ipratropium (Duoneb 3 Mg/0.5 Mg (3 Ml) Ud) 3 ml IH Q2H PRN PRN Reason: Shortness of Breath Albuterol/Ipratropium (Duoneb 3 Mg/0.5 Mg (3 Ml) Ud) 3 ml IH [id number] [facility] Last Admin: 11/29/17 19:54 Dose: 3 ml Alprazolam (Xanax) 0.5 mg PO [facility] PRN Reason: Protocol Last Admin: 11/29/17 21:12 Dose: 0.5 mg Amlodipine Besylate (Norvasc) 5 mg PO DAILY [facility] Last Admin: 11/29/17 11:27 Dose: 5 mg Amylase (Pancrease 96441 U-5000 U-55612 U) 5,000 unit PO TID [facility] Last Admin: 11/29/17 18:05 Dose: 5,000 unit Ascorbic Acid (Vitamin C 500 Mg Tab) 500 mg PO DAILY [facility] Last Admin: 11/29/17 11:28 Dose: 500 mg Aspirin (Ecotrin) 81 mg PO DAILY [facility] Last Admin: 11/29/17 11:27 Dose: 81 mg Atorvastatin Calcium (Lipitor) 40 mg PO [facility] Last Admin: 11/29/17 21:10 Dose: 40 mg Carvedilol (Coreg) 12.5 mg PO BID [facility] Last Admin: 11/29/17 18:04 Dose: 12.5 mg Cilostazol (Pletal) 100 mg PO DAILY [facility] Last Admin: 11/29/17 11:27 Dose: 100 mg Doxycycline Hyclate (Doryx) 100 mg PO Q12 [facility] PRN Reason: Protocol Stop: 12/06/17 22:01 Last Admin: 11/29/17 21:07 Dose: 100 mg Escitalopram Oxalate (Lexapro) 5 mg PO DAILY [facility] Last Admin: 11/29/17 11:29 Dose: 5 mg Famotidine (Pepcid) 20 mg PO HS [facility] Last Admin: 11/29/17 21:11 Dose: 20 mg Furosemide (Lasix) 20 mg PO QOTHERDAY [facility] Last Admin: 11/29/17 11:28 Dose: 20 mg Heparin Sodium (Porcine) (Heparin) 5,000 units SC Q12 [facility] PRN Reason: Protocol Last Admin: 11/29/17 21:08 Dose: 5,000 units Cefepime HCl (Maxipime 1gm) 1 gm in 100 mls @ 100 mls/hr IVPB Q12 [facility] PRN Reason: Protocol Stop: 12/06/17 22:01 Last Admin: 11/29/17 21:10 Dose: 100 mls/hr Vancomycin HCl (Vancomycin 1gm) 1 gm in 250 mls @ 167 mls/hr IVPB Q12H [facility] PRN Reason: Protocol Last Admin: 11/29/17 22:24 Dose: 167 mls/hr Levothyroxine Sodium (Synthroid) 88 mcg PO DAILY [facility] Last Admin: 11/29/17 11:30 Dose: 88 mcg Loperamide HCl (Imodium) 2 mg PO Q6 PRN PRN Reason: Diarrhea Multivitamins (Thera Tab) 1 tab PO DAILY [facility] Last Admin: 11/29/17 11:26 Dose: 1 tab Tramadol HCl (Ultram) 50 mg PO HS PRN PRN Reason: Pain, moderate (4-7) Last Admin: 11/29/17 00:25 Dose: 50 mg Zinc Sulfate (Zinc Sulfate 220 Mg Cap) 220 mg PO DAILY [facility] Last Admin: 11/29/17 11:33 Dose: 220 mg - Labs Labs: 11/29/17 05:45 11/29/17 05:45 - Constitutional Appears: No Acute Distress - Head Exam Head Exam: ATRAUMATIC, NORMAL INSPECTION, NORMOCEPHALIC - Eye Exam Eye Exam: Normal appearance, PERRL Pupil Exam: NORMAL ACCOMODATION - ENT Exam ENT Exam: Mucous Membranes Moist - Neck Exam Neck Exam: Full ROM. absent: Lymphadenopathy, Tenderness Additional comments: L parotid tumor - Respiratory Exam Respiratory Exam: Clear to Ausculation Bilateral, NORMAL BREATHING PATTERN. absent: Rales, Rhonchi, Wheezes, Stridor - Cardiovascular Exam Cardiovascular Exam: REGULAR RHYTHM, +S1, +S2. absent: Gallop, Rubs, Murmur - GI/Abdominal Exam GI & Abdominal Exam: Soft. absent: Rigid, Tenderness, Mass, Normal Bowel Sounds , Rebound - Extremities Exam Extremities Exam: absent: Calf Tenderness, Pedal Edema Additional comments: No pain in L knee or leg. no edema in L knee - Neurological Exam Neurological Exam: Alert, Awake, CN II-XII Intact, Oriented x3 - Psychiatric Exam Psychiatric exam: Normal Affect, Normal Mood - Skin Skin Exam: Dry, Warm Assessment and Plan - Assessment and Plan (Free Text) Assessment: This is an 87yo female with past medical history of HTN, CAD, OA, hypothyroidism , PVD, CVA, falls, liver mass, chronic diarrhea, chronic L parotid mass 1. Bacteremia - Both culture positive for S. Aureus and Coag Neg staph. Awaiting sensitivities - Repeat cultures pending 2. L Tibia fracture - seen on CT- can be from fall from previous stay or weight baring 3. HCAP - secondary to pneumonia (hospital acquired) and bronchitis reviewed on chest CT 4. UTI - urine culture positive for E.Coli 5. Liver mass - R hepatic lobe seen on previous MRCP - patient wants biopsy (will be done as outpatient 6. CKD IIIb 7. Anemia of chronic disease (stable) 8. HTN 9. OA 10. Hypothyroidism 11. CAD 12. PVD 13. CVA w/ L residual weakness 14. Chronic diarrhea- controlled Plan: Labs and imaging reviewed. Echo is pending. Repeat blood culture pending. ID is following. Continue Cefepime, Vancomycin and Doxycycline. Continue physical therapy. Ortho on consult. No plan on OR for fracture. Pain controlled. Patient tolerating diet. GI recommendations appreciated. I spoke with family today and yesterday about plan at length. Continue ASA, norvasc, Coreg, Lipitor, and pletal. Will await liver biopsy as outpatient. Lexapro as per psych. Patient is on GI and DVT prophylaxis. Case seen, discussed and reviewed with Dr. Hadley. Kellee Monge PGY3 <Juanito Hadley - Last Filed: 11/30/17 19:25> Objective - Vital Signs/Intake and Output Vital Signs (last 24 hours): Temp Pulse Resp BP Pulse Ox 97.7 F 59 L 19 126/87 97 11/30/17 17:22 11/30/17 17:22 11/30/17 17:22 11/30/17 17:22 11/30/17 17:22 - Medications Medications: Current Medications Albuterol/Ipratropium (Duoneb 3 Mg/0.5 Mg (3 Ml) Ud) 3 ml IH Q2H PRN PRN Reason: Shortness of Breath Albuterol/Ipratropium (Duoneb 3 Mg/0.5 Mg (3 Ml) Ud) 3 ml IH [id number] [facility] Last Admin: 11/30/17 13:46 Dose: 3 ml Alprazolam (Xanax) 0.5 mg PO HS [facility] PRN Reason: Protocol Last Admin: 11/29/17 21:12 Dose: 0.5 mg Amlodipine Besylate (Norvasc) 5 mg PO DAILY [facility] Last Admin: 11/30/17 09:14 Dose: 5 mg Amylase (Pancrease 26162 U-5000 U-66512 U) 5,000 unit PO TID [facility] Last Admin: 11/30/17 17:07 Dose: 5,000 unit Ascorbic Acid (Vitamin C 500 Mg Tab) 500 mg PO DAILY [facility] Last Admin: 11/30/17 09:15 Dose: 500 mg Aspirin (Ecotrin) 81 mg PO DAILY [facility] Last Admin: 11/30/17 09:10 Dose: 81 mg Atorvastatin Calcium (Lipitor) 40 mg PO HS [facility] Last Admin: 11/29/17 21:10 Dose: 40 mg Carvedilol (Coreg) 12.5 mg PO BID [facility] Last Admin: 11/30/17 17:06 Dose: 12.5 mg Cilostazol (Pletal) 100 mg PO DAILY [facility] Last Admin: 11/30/17 09:15 Dose: 100 mg Doxycycline Hyclate (Doryx) 100 mg PO Q12 [facility] PRN Reason: Protocol Stop: 12/06/17 22:01 Last Admin: 11/30/17 09:09 Dose: 100 mg Escitalopram Oxalate (Lexapro) 5 mg PO DAILY [facility] Last Admin: 11/30/17 09:13 Dose: 5 mg Famotidine (Pepcid) 20 mg PO HS [facility] Last Admin: 11/29/17 21:11 Dose: 20 mg Furosemide (Lasix) 20 mg PO QOTHERDAY [facility] Last Admin: 11/29/17 11:28 Dose: 20 mg Heparin Sodium (Porcine) (Heparin) 5,000 units SC Q12 [facility] PRN Reason: Protocol Last Admin: 11/30/17 09:10 Dose: 5,000 units Cefepime HCl (Maxipime 1gm) 1 gm in 100 mls @ 100 mls/hr IVPB Q12 [facility] PRN Reason: Protocol Stop: 12/06/17 22:01 Last Admin: 11/30/17 09:14 Dose: 100 mls/hr Vancomycin HCl (Vancomycin 1gm) 1 gm in 250 mls @ 167 mls/hr IVPB Q12H [facility] PRN Reason: Protocol Last Admin: 11/30/17 10:33 Dose: 167 mls/hr Levothyroxine Sodium (Synthroid) 88 mcg PO DAILY [facility] Last Admin: 11/30/17 09:15 Dose: 88 mcg Loperamide HCl (Imodium) 2 mg PO Q6 PRN PRN Reason: Diarrhea Multivitamins (Thera Tab) 1 tab PO DAILY [facility] Last Admin: 11/30/17 09:15 Dose: 1 tab Tramadol HCl (Ultram) 50 mg PO HS PRN PRN Reason: Pain, moderate (4-7) Last Admin: 11/29/17 00:25 Dose: 50 mg Zinc Sulfate (Zinc Sulfate 220 Mg Cap) 220 mg PO DAILY [facility] Last Admin: 11/30/17 09:15 Dose: 220 mg - Labs Labs: 11/30/17 06:00 11/30/17 06:00 Assessment and Plan - Assessment and Plan (Free Text) Plan: Pt seen and examined. I have reviewed the note of the medical or surgical instrument maker and agree with it. I have discussed the assessment and plan with the resident. I have reviewed the patient's labs and medications. Pt has MRSA bacteremia. She is on IV Abx She has no pain. Eating ok. Family aware of fx and orhto following. Echo pending. F/U BCx.
[2017-11-30 06:40] LABS: HEMOGLOBIN 8.6 g/dL (12.0-16.0); MEAN CELL VOLUME 94.8 fl (80.0-105.0); MEAN CORPUSCULAR HGB CONC 31.6 g/dl (31.0-37.0); MEAN PLATELET VOLUME 9.6 fl (7.0-11.0); RBC 2.87 10^6/uL (3.5-6.1); RED CELL DISTRIBUTION WIDTH 14.3 % (11.5-14.5); WHITE BLOOD COUNT 7.1 10^3/ul (4.5-11.0)
[2017-11-30 06:49] LABS: ALB/GLOB RATIO 0.9 (1.1-1.8); ALBUMIN 3.2 g/dL (3.0-4.8); ALT/SGPT 64 U/L (7-56); AST/SGOT 56 U/L (14-36); BLOOD UREA NITROGEN 22 mg/dL (7-21); CALCIUM 8.8 mg/dL (8.4-10.5); GFR AFRICAN-AMERICAN > 60; GFR NON-AFRICAN AMERICAN 53
[2017-11-30] MEDS: Albuterol-Ipratrop 3 mg / 0.5 (3 ml) UD IH SCH ×4 (07:35→19:48)
[2017-11-30] MEDS: Amylase/Lipase/Protease 5,000 Units ECC PO SCH ×3 (09:14→17:07)
[2017-11-30] MEDS: Cefepime 1gm in NS 100ml 1 GM/100 ML BAG IVPB SCH ×2 (09:14→21:24)
[2017-11-30] MEDS: Cilostazol 100 mg Tab UD PO SCH (09:15)
[2017-11-30] MEDS: Levothyroxine 88 MCG TAB PO SCH (09:15)
[2017-11-30] MEDS: Multivitamin Therapeutic Tab PO SCH (09:15)
--- NOTE | 2017-11-30 10:21 | CP.PCM.PN ---
Subjective - Date & Time of Evaluation Date of Evaluation: 11/30/17 Time of Evaluation: 09:50 - Subjective Subjective: S&E at bedside, chart reviewed, patient for echo, 2 sons at bedside, (not POA) patient with no complaints, no diarrhea or c/o of abdominal pain, N/V. Occasional coughing. No fever or chills. Objective - Vital Signs/Intake and Output Vital Signs (last 24 hours): Temp Pulse Resp BP Pulse Ox 97.8 F 60 20 162/66 H 96 11/30/17 06:00 11/30/17 09:14 11/30/17 06:00 11/30/17 09:14 11/30/17 06:00 Intake and Output: 11/30/17 11/30/17 06:59 18:59 Intake Total 1220 Output Total 700 Balance 520 - Medications Medications: Current Medications Albuterol/Ipratropium (Duoneb 3 Mg/0.5 Mg (3 Ml) Ud) 3 ml IH Q2H PRN PRN Reason: Shortness of Breath Albuterol/Ipratropium (Duoneb 3 Mg/0.5 Mg (3 Ml) Ud) 3 ml IH [id number] [facility] Last Admin: 11/30/17 07:35 Dose: 3 ml Alprazolam (Xanax) 0.5 mg PO HS [facility] PRN Reason: Protocol Last Admin: 11/29/17 21:12 Dose: 0.5 mg Amlodipine Besylate (Norvasc) 5 mg PO DAILY [facility] Last Admin: 11/30/17 09:14 Dose: 5 mg Amylase (Pancrease 50898 U-5000 U-71896 U) 5,000 unit PO TID [facility] Last Admin: 11/30/17 09:14 Dose: 5,000 unit Ascorbic Acid (Vitamin C 500 Mg Tab) 500 mg PO DAILY [facility] Last Admin: 11/30/17 09:15 Dose: 500 mg Aspirin (Ecotrin) 81 mg PO DAILY [facility] Last Admin: 11/30/17 09:10 Dose: 81 mg Atorvastatin Calcium (Lipitor) 40 mg PO HS [facility] Last Admin: 11/29/17 21:10 Dose: 40 mg Carvedilol (Coreg) 12.5 mg PO BID [facility] Last Admin: 11/30/17 09:08 Dose: 12.5 mg Cilostazol (Pletal) 100 mg PO DAILY [facility] Last Admin: 11/30/17 09:15 Dose: 100 mg Doxycycline Hyclate (Doryx) 100 mg PO Q12 [facility] PRN Reason: Protocol Stop: 12/06/17 22:01 Last Admin: 11/30/17 09:09 Dose: 100 mg Escitalopram Oxalate (Lexapro) 5 mg PO DAILY [facility] Last Admin: 11/30/17 09:13 Dose: 5 mg Famotidine (Pepcid) 20 mg PO HS [facility] Last Admin: 11/29/17 21:11 Dose: 20 mg Furosemide (Lasix) 20 mg PO QOTHERDAY [facility] Last Admin: 11/29/17 11:28 Dose: 20 mg Heparin Sodium (Porcine) (Heparin) 5,000 units SC Q12 [facility] PRN Reason: Protocol Last Admin: 11/30/17 09:10 Dose: 5,000 units Cefepime HCl (Maxipime 1gm) 1 gm in 100 mls @ 100 mls/hr IVPB Q12 [facility] PRN Reason: Protocol Stop: 12/06/17 22:01 Last Admin: 11/30/17 09:14 Dose: 100 mls/hr Vancomycin HCl (Vancomycin 1gm) 1 gm in 250 mls @ 167 mls/hr IVPB Q12H [facility] PRN Reason: Protocol Last Admin: 11/29/17 22:24 Dose: 167 mls/hr Levothyroxine Sodium (Synthroid) 88 mcg PO DAILY [facility] Last Admin: 11/30/17 09:15 Dose: 88 mcg Loperamide HCl (Imodium) 2 mg PO Q6 PRN PRN Reason: Diarrhea Multivitamins (Thera Tab) 1 tab PO DAILY [facility] Last Admin: 11/30/17 09:15 Dose: 1 tab Tramadol HCl (Ultram) 50 mg PO HS PRN PRN Reason: Pain, moderate (4-7) Last Admin: 11/29/17 00:25 Dose: 50 mg Zinc Sulfate (Zinc Sulfate 220 Mg Cap) 220 mg PO DAILY [facility] Last Admin: 11/30/17 09:15 Dose: 220 mg - Labs Labs: 11/30/17 06:00 11/30/17 06:00 - Constitutional Appears: No Acute Distress - Eye Exam Eye Exam: Normal appearance. absent: Scleral icterus - ENT Exam ENT Exam: Mucous Membranes Moist - Neck Exam Additional comments: left parotid mass - Respiratory Exam Respiratory Exam: NORMAL BREATHING PATTERN. absent: Respiratory Distress - Cardiovascular Exam Cardiovascular Exam: +S1, +S2 - GI/Abdominal Exam GI & Abdominal Exam: Soft, Normal Bowel Sounds. absent: Guarding, Tenderness, Rebound - Extremities Exam Extremities Exam: absent: Calf Tenderness - Neurological Exam Neurological Exam: Alert, Awake, Oriented x3 Assessment and Plan - Assessment and Plan (Free Text) Assessment: ASSESSMENT: Anemia Liver mass, r/o carcinoma, last MRCP from last admission suspicious for liver lesion Elevated CA19-9/CEA Pneumonia/Bronchitis Bacteremia Non malignant left parotid mass H/O CVA w/ left sided weakness UTI, (+) Ecoli Diarrhea resolved, cdiff negative PLAN: on IV and oral antibiotics as per ID oncology on case, recommend PET pending eval for Liver bx w/ IR, on hold, blood culture positive, blood cultures redrawn and results are pending continue GI prophylaxsis on Pancrease on Heparin SQ monitor h/g and for overt GI bleeding spoke to 2 sons at bedside Seen and discussed w/ Dr. Calixto.
[2017-11-30] MEDS: Vancomycin 1gm in NS 250ml 1 GM/250 ML BAG IVPB SCH ×2 (10:33→21:27)
--- NOTE | 2017-11-30 14:37 | CP.PCM.PN ---
Subjective - Date & Time of Evaluation Date of Evaluation: 11/30/17 Time of Evaluation: 11:30 - Subjective Subjective: Comfortable in bed, no fevers, still with cough but a little better, no nausea. Objective - Vital Signs/Intake and Output Vital Signs (last 24 hours): Temp Pulse Resp BP Pulse Ox 97.8 F 60 20 162/66 H 96 11/30/17 06:00 11/30/17 09:14 11/30/17 06:00 11/30/17 09:14 11/30/17 06:00 Intake and Output: 11/30/17 11/30/17 06:59 18:59 Intake Total 1220 Output Total 700 Balance 520 - Medications Medications: Current Medications Albuterol/Ipratropium (Duoneb 3 Mg/0.5 Mg (3 Ml) Ud) 3 ml IH Q2H PRN PRN Reason: Shortness of Breath Albuterol/Ipratropium (Duoneb 3 Mg/0.5 Mg (3 Ml) Ud) 3 ml IH [id number] [facility] Last Admin: 11/30/17 07:35 Dose: 3 ml Alprazolam (Xanax) 0.5 mg PO HS [facility] PRN Reason: Protocol Last Admin: 11/29/17 21:12 Dose: 0.5 mg Amlodipine Besylate (Norvasc) 5 mg PO DAILY [facility] Last Admin: 11/30/17 09:14 Dose: 5 mg Amylase (Pancrease 08359 U-5000 U-42811 U) 5,000 unit PO TID [facility] Last Admin: 11/30/17 09:14 Dose: 5,000 unit Ascorbic Acid (Vitamin C 500 Mg Tab) 500 mg PO DAILY [facility] Last Admin: 11/30/17 09:15 Dose: 500 mg Aspirin (Ecotrin) 81 mg PO DAILY [facility] Last Admin: 11/30/17 09:10 Dose: 81 mg Atorvastatin Calcium (Lipitor) 40 mg PO HS [facility] Last Admin: 11/29/17 21:10 Dose: 40 mg Carvedilol (Coreg) 12.5 mg PO BID [facility] Last Admin: 11/30/17 09:08 Dose: 12.5 mg Cilostazol (Pletal) 100 mg PO DAILY [facility] Last Admin: 11/30/17 09:15 Dose: 100 mg Doxycycline Hyclate (Doryx) 100 mg PO Q12 [facility] PRN Reason: Protocol Stop: 12/06/17 22:01 Last Admin: 11/30/17 09:09 Dose: 100 mg Escitalopram Oxalate (Lexapro) 5 mg PO DAILY [facility] Last Admin: 11/30/17 09:13 Dose: 5 mg Famotidine (Pepcid) 20 mg PO HS [facility] Last Admin: 11/29/17 21:11 Dose: 20 mg Furosemide (Lasix) 20 mg PO QOTHERDAY [facility] Last Admin: 11/29/17 11:28 Dose: 20 mg Heparin Sodium (Porcine) (Heparin) 5,000 units SC Q12 [facility] PRN Reason: Protocol Last Admin: 11/30/17 09:10 Dose: 5,000 units Cefepime HCl (Maxipime 1gm) 1 gm in 100 mls @ 100 mls/hr IVPB Q12 [facility] PRN Reason: Protocol Stop: 12/06/17 22:01 Last Admin: 11/30/17 09:14 Dose: 100 mls/hr Vancomycin HCl (Vancomycin 1gm) 1 gm in 250 mls @ 167 mls/hr IVPB Q12H [facility] PRN Reason: Protocol Last Admin: 11/29/17 22:24 Dose: 167 mls/hr Levothyroxine Sodium (Synthroid) 88 mcg PO DAILY [facility] Last Admin: 11/30/17 09:15 Dose: 88 mcg Loperamide HCl (Imodium) 2 mg PO Q6 PRN PRN Reason: Diarrhea Multivitamins (Thera Tab) 1 tab PO DAILY [facility] Last Admin: 11/30/17 09:15 Dose: 1 tab Tramadol HCl (Ultram) 50 mg PO HS PRN PRN Reason: Pain, moderate (4-7) Last Admin: 11/29/17 00:25 Dose: 50 mg Zinc Sulfate (Zinc Sulfate 220 Mg Cap) 220 mg PO DAILY [facility] Last Admin: 11/30/17 09:15 Dose: 220 mg - Labs Labs: 11/30/17 06:00 11/30/17 06:00 - Constitutional Appears: Non-toxic, Chronically Ill - Head Exam Head Exam: NORMAL INSPECTION - Respiratory Exam Respiratory Exam: Decreased Breath Sounds - Cardiovascular Exam Cardiovascular Exam: +S1, +S2 - GI/Abdominal Exam GI & Abdominal Exam: Soft. absent: Tenderness Assessment and Plan - Assessment and Plan (Free Text) Plan: Assessment left sided HCAP with possible gram positive cocci and/or gram negative bacilli and/or atypical organisms gram positive cocci bacteremia, source to be determined S/P acute renal failure acute diastolic heart failure on top of chronic CHF consider UTI with E. coli acute left proximal tibial fracture osteoarthritis CAD Plan continue Cefepime and Doxycycline day 4 (to complete 4-7 days for pneumonia and UTI) and IV Vancomycin pending identification and sensitivities of the gram positive cocci in the blood - follow up repeat blood cx from yesterday and follow up 2D echo results follow up further plans of Ortho for the leg fracture will continue to monitor clinically
--- NOTE | 2017-11-30 17:20 | CARD ---
APPROVED REPORT Date of service: 11/30/2017 EXAM: Two-dimensional and M-mode echocardiogram with Doppler and color Doppler. INDICATION Infection:Rule out subacute bacterial endocarditis 2D DIMENSIONS Left Atrium (2D)4.0 (1.6-4.0cm)IVSd1.2 (0.7-1.1cm) LVDd4.0 (3.9-5.9cm)PWd1.0 (0.7-1.1cm) LVDs2.8 (2.5-4.0cm)FS (%) 30.6 % LVEF (%)58.6 (>50%) M-Mode DIMENSIONS Aortic Root2.20 (2.2-3.7cm)Aortic Cusp Exc.0.80 (1.5-2.0cm) Aortic Valve AoV Peak Ntgoahvl520.0cm/Emilio Peak GR.10mmHg Mitral Valve MV E Iixltfoi427.0cm/sMV A Wvclbbqk016.0cm/sE/A ratio0.9 TDI E/Lateral E'0.0E/Medial E'0.0 Tricuspid Valve TR Peak [id number]/sRAP [id number] Peak Gr.26mmHg [id number] LEFT VENTRICLE The left ventricle is normal size. There is normal left ventricular wall thickness. The left ventricular function is normal. The left ventricular ejection fraction is within the normal range. There is normal LV segmental wall motion. Transmitral Doppler flow pattern is Grade I-abnormal relaxation pattern. RIGHT VENTRICLE The right ventricle is normal size. There is normal right ventricular wall thickness. The right ventricular systolic function is normal. ATRIA The left atrium size is normal. The right atrium size is normal. AORTIC VALVE The aortic valve is mildly to moderately sclerotic. No aortic regurgitation is present. There is no aortic valvular stenosis. MITRAL VALVE The mitral valve is moderately thickened. Mitral regurgitation is mild. There is no mitral valve stenosis. TRICUSPID VALVE There is mild tricuspid regurgitation. There is mild pulmonary hypertension. PULMONIC VALVE There is mild pulmonic valvular regurgitation. GREAT VESSELS The aortic root is normal in size. The IVC is normal in size and collapses >50% with inspiration. <Conclusion> The left ventricle is normal size. There is normal left ventricular wall thickness. The left ventricular function is normal. The left ventricular ejection fraction is within the normal range. There is normal LV segmental wall motion. Transmitral Doppler flow pattern is Grade I-abnormal relaxation pattern. Mitral regurgitation is mild. There is mild tricuspid regurgitation. There is mild pulmonary hypertension. Mitral and Aortic valves are thickened but no vegitation seen
--- NOTE | 2017-11-30 22:30 | CON ---
DATE: 11/30/2017 HISTORY OF PRESENT ILLNESS: The patient is an 87-year-old white female with history of depression and chronic delirium, whom Psychiatry is following on the medial floor where she is being treated for altered mental status likely secondary to multiple medical issues. The Psychiatry has been following the patient and started Lexapro for patient due to depression, which apparently she has been tolerating very well. I have reviewed Dr. Chavez's notes and recent nursing notes and met with the patient at the bedside this morning. She is well oriented to location, month, and year. Her focus is fair and responses are consistent. Effect is constricted and most of her responses are coherent and relevant questioning. She continues to tolerate Lexapro as well as Xanax which she has been receiving nightly since the arrival and denies any side effects from them. She appears depressed; however, she denies feeling hopeless and denies any wishes or suicidal thoughts. She indicates that she is feeling "as well as can be expected, what can I say." She denies having any pain or discomfort and does not appear to be in any physical distress. The patient reports that she feels like she is improving regarding her mental status. She feels that she is much more aware of her surroundings and circumstances and her memory is also improving as well. The patient is aware of her initial confusion when she first presented to the hospital. Her insight and judgement are improving in this respect. Labs and vitals were reviewed with her provider. RELEVANT PSYCHIATRIC MEDICATIONS: Include Xanax 0.5 mg p.o. at nighttime and Lexapro 5 mg daily. IMPRESSION: Delirium which appears to be improving as well as depression treated by Lexapro, anxiety disorder treated by Xanax. RECOMMENDATIONS: We will continue with current treatment, Xanax 0.5 mg at bedtime and Lexapro 5 mg daily. There is no acute indication for changes in her current medication regime and patient's mental status appears to be improving. The patient continues to be depressed. However, she is not hopeless, apathetic, and she denies having any wishes or suicidal thoughts. There have been no major behavioral issues and she does not appear to present as acute danger to herself or others. Psychiatry will sign off Psychiatry will sign off at this time unless there are acute changes in patient's presentation. Re-consult as necessary, if there are any changes in this respect. Jennifer Grigsby MD [facility] # [id number]
[2017-12-01] MEDS: Albuterol-Ipratrop 3 mg / 0.5 (3 ml) UD IH SCH ×4 (01:40→20:20)
[2017-12-01 06:35] LABS: HEMOGLOBIN 8.9 g/dL (12.0-16.0); MEAN CELL VOLUME 94.5 fl (80.0-105.0); MEAN CORPUSCULAR HEMOGLOBIN 30.4 pg (25.0-35.0); MEAN CORPUSCULAR HGB CONC 32.1 g/dl (31.0-37.0); MEAN PLATELET VOLUME 9.5 fl (7.0-11.0); RBC 2.93 10^6/uL (3.5-6.1); RED CELL DISTRIBUTION WIDTH 14.3 % (11.5-14.5); WHITE BLOOD COUNT 7.8 10^3/ul (4.5-11.0)
[2017-12-01 07:34] LABS: ALB/GLOB RATIO 0.9 (1.1-1.8); ALBUMIN 3.1 g/dL (3.0-4.8); ALT/SGPT 63 U/L (7-56); AST/SGOT 73 U/L (14-36); BLOOD UREA NITROGEN 26 mg/dL (7-21); GFR AFRICAN-AMERICAN > 60; GFR NON-AFRICAN AMERICAN 53
[2017-12-01] MEDS: Cilostazol 100 mg Tab UD PO SCH (09:21)
[2017-12-01] MEDS: Amylase/Lipase/Protease 5,000 Units ECC PO SCH ×4 (09:22→17:05)
[2017-12-01] MEDS: Multivitamin Therapeutic Tab PO SCH (09:22)
[2017-12-01] MEDS: Cefepime 1gm in NS 100ml 1 GM/100 ML BAG IVPB SCH ×2 (09:23→21:42)
[2017-12-01] MEDS: Levothyroxine 88 MCG TAB PO SCH (09:23)
[2017-12-01] MEDS ORDERED: Sod Polystyrene Sulf 15 gm/60 ml Susp PO ONE (11:46)
--- NOTE | 2017-12-01 12:08 | PN ---
DATE: 12/01/2017 SUBJECTIVE: The patient is in bed in no acute distress, nontoxic, was seen earlier today in room 360. PHYSICAL EXAMINATION VITAL SIGNS: Temperature is 98, blood pressure is 162/80, respiratory rate of 18, heart rate of 58. HEENT: Unremarkable. NECK: Supple. LUNGS: Have decreased breath sounds. HEART: Normal S1 and S2. ABDOMEN: Soft, nontender. LABORATORY DATA: Reveals a white count of 7.8, hemoglobin of 8 and BUN of 26, creatinine of 1. CA 19-9 is 4840. Urinalysis is noted. Microbiology reveals the patient has gram-positive cocci in the blood with E. coli in the urine. The gram-positive cocci is awaiting for further identification and sensitivity. The E. coli in the urine is pansensitive. The repeat blood culture from the is no growth. Review of orders reveals the patient to be on Solu-Medrol, doxycycline p.o. and cefepime and vancomycin. The patient had an echo, no vegetations are seen. ASSESSMENT AND PLAN: An 87-year-old female seen earlier today in 360, bed 1, with a left-sided healthcare-associated pneumonia with a possible gram-positive cocci, possible gram-negative ann versus atypical, with elevated procalcitonin and gram-positive cocci bacteremia; identification, sensitivity and source to be determined, and pansensitive Escherichia coli urinary tract infection with acute diastolic congestive heart failure on top of chronic congestive heart failure and status post acute renal failure, day #5 of doxycycline and cefepime, on IV vancomycin. Awaiting for identification and sensitivity of the gram-positive cocci with repeat cultures negative. We will follow closely with you. Rich Bonilla MD
--- NOTE | 2017-12-01 13:18 | CP.PCM.PN ---
<Gus Stewart - Last Filed: 12/01/17 13:20> Subjective - Date & Time of Evaluation Date of Evaluation: 12/01/17 Time of Evaluation: 08:00 - Subjective Subjective: PGY5 GI Consult Note Pt seen and examined bedside denies any abd pain denies any fever, chills or diaphoresis ROS: 12 point ROS conducted, neg other than above Objective - Vital Signs/Intake and Output Vital Signs (last 24 hours): Temp Pulse Resp BP Pulse Ox 98 F 60 18 160/88 H 97 12/01/17 08:05 12/01/17 09:22 12/01/17 08:05 12/01/17 09:22 12/01/17 08:05 Intake and Output: 12/01/17 12/01/17 06:59 18:59 Output Total 1300 Balance -1300 - Medications Medications: Current Medications Albuterol/Ipratropium (Duoneb 3 Mg/0.5 Mg (3 Ml) Ud) 3 ml IH Q2H PRN PRN Reason: Shortness of Breath Albuterol/Ipratropium (Duoneb 3 Mg/0.5 Mg (3 Ml) Ud) 3 ml IH [id number] [facility] Last Admin: 12/01/17 08:00 Dose: 3 ml Alprazolam (Xanax) 0.5 mg PO HS [facility] PRN Reason: Protocol Last Admin: 11/30/17 21:28 Dose: 0.5 mg Amlodipine Besylate (Norvasc) 5 mg PO DAILY [facility] Last Admin: 12/01/17 09:22 Dose: 5 mg Amylase (Pancrease 57156 U-5000 [id number] U) 5,000 unit PO TID [facility] Last Admin: 12/01/17 09:24 Dose: 5,000 unit Ascorbic Acid (Vitamin C 500 Mg Tab) 500 mg PO DAILY [facility] Last Admin: 12/01/17 09:23 Dose: 500 mg Aspirin (Ecotrin) 81 mg PO DAILY [facility] Last Admin: 12/01/17 09:22 Dose: 81 mg Atorvastatin Calcium (Lipitor) 40 mg PO HS [facility] Last Admin: 11/30/17 21:24 Dose: 40 mg Carvedilol (Coreg) 12.5 mg PO BID [facility] Last Admin: 12/01/17 09:22 Dose: 12.5 mg Cilostazol (Pletal) 100 mg PO DAILY [facility] Last Admin: 12/01/17 09:21 Dose: 100 mg Doxycycline Hyclate (Doryx) 100 mg PO Q12 [facility] PRN Reason: Protocol Stop: 12/06/17 22:01 Last Admin: 12/01/17 09:21 Dose: 100 mg Escitalopram Oxalate (Lexapro) 5 mg PO DAILY [facility] Last Admin: 12/01/17 09:21 Dose: 5 mg Famotidine (Pepcid) 20 mg PO HS [facility] Last Admin: 11/30/17 21:26 Dose: 20 mg Furosemide (Lasix) 20 mg PO QOTHERDAY [facility] Last Admin: 12/01/17 09:22 Dose: 20 mg Heparin Sodium (Porcine) (Heparin) 5,000 units SC Q12 [facility] PRN Reason: Protocol Last Admin: 12/01/17 09:21 Dose: 5,000 units Cefepime HCl (Maxipime 1gm) 1 gm in 100 mls @ 100 mls/hr IVPB Q12 [facility] PRN Reason: Protocol Stop: 12/06/17 22:01 Last Admin: 12/01/17 09:23 Dose: 100 mls/hr Vancomycin HCl (Vancomycin 1gm) 1 gm in 250 mls @ 167 mls/hr IVPB Q12H [facility] PRN Reason: Protocol Last Admin: 11/30/17 21:27 Dose: 167 mls/hr Levothyroxine Sodium (Synthroid) 88 mcg PO DAILY [facility] Last Admin: 12/01/17 09:23 Dose: 88 mcg Loperamide HCl (Imodium) 2 mg PO Q6 PRN PRN Reason: Diarrhea Multivitamins (Thera Tab) 1 tab PO DAILY [facility] Last Admin: 12/01/17 09:22 Dose: 1 tab Tramadol HCl (Ultram) 50 mg PO HS PRN PRN Reason: Pain, moderate (4-7) Last Admin: 11/29/17 00:25 Dose: 50 mg Zinc Sulfate (Zinc Sulfate 220 Mg Cap) 220 mg PO DAILY [facility] Last Admin: 12/01/17 09:21 Dose: 220 mg - Labs Labs: 12/01/17 05:30 12/01/17 05:30 - Constitutional Appears: Well, No Acute Distress - Head Exam Head Exam: ATRAUMATIC, NORMOCEPHALIC - Eye Exam Eye Exam: Normal appearance - ENT Exam ENT Exam: Mucous Membranes Moist, Normal Exam - Neck Exam Neck Exam: Normal Inspection - Respiratory Exam Respiratory Exam: Clear to Ausculation Bilateral, NORMAL BREATHING PATTERN. absent: Rhonchi, Wheezes, Respiratory Distress - Cardiovascular Exam Cardiovascular Exam: REGULAR RHYTHM, +S1, +S2 - GI/Abdominal Exam GI & Abdominal Exam: Soft, Normal Bowel Sounds. 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 Calixto <Clinton Calixto V - Last Filed: 12/01/17 21:31> Objective - Vital Signs/Intake and Output Vital Signs (last 24 hours): Temp Pulse Resp BP Pulse Ox 98.2 F 66 19 145/75 96 12/01/17 17:33 12/01/17 17:33 12/01/17 17:33 12/01/17 17:33 12/01/17 17:33 - Medications Medications: Current Medications Albuterol/Ipratropium (Duoneb 3 Mg/0.5 Mg (3 Ml) Ud) 3 ml IH Q2H PRN PRN Reason: Shortness of Breath Albuterol/Ipratropium (Duoneb 3 Mg/0.5 Mg (3 Ml) Ud) 3 ml IH [id number] [facility] Last Admin: 12/01/17 20:20 Dose: 3 ml Alprazolam (Xanax) 0.5 mg PO HS [facility] PRN Reason: Protocol Last Admin: 11/30/17 21:28 Dose: 0.5 mg Amlodipine Besylate (Norvasc) 5 mg PO DAILY [facility] Last Admin: 12/01/17 09:22 Dose: 5 mg Amylase (Pancrease 98920 U-5000 U-[id number] U) 5,000 unit PO TID [facility] Last Admin: 12/01/17 17:05 Dose: 5,000 unit Ascorbic Acid (Vitamin C 500 Mg Tab) 500 mg PO DAILY [facility] Last Admin: 12/01/17 09:23 Dose: 500 mg Aspirin (Ecotrin) 81 mg PO DAILY [facility] Last Admin: 12/01/17 09:22 Dose: 81 mg Atorvastatin Calcium (Lipitor) 40 mg PO HS [facility] Last Admin: 11/30/17 21:24 Dose: 40 mg Carvedilol (Coreg) 12.5 mg PO BID [facility] Last Admin: 12/01/17 17:04 Dose: 12.5 mg Cilostazol (Pletal) 100 mg PO DAILY [facility] Last Admin: 12/01/17 09:21 Dose: 100 mg Doxycycline Hyclate (Doryx) 100 mg PO Q12 [facility] PRN Reason: Protocol Stop: 12/06/17 22:01 Last Admin: 12/01/17 09:21 Dose: 100 mg Escitalopram Oxalate (Lexapro) 5 mg PO DAILY [facility] Last Admin: 12/01/17 09:21 Dose: 5 mg Famotidine (Pepcid) 20 mg PO HS [facility] Last Admin: 11/30/17 21:26 Dose: 20 mg Furosemide (Lasix) 20 mg PO QOTHERDAY [facility] Last Admin: 12/01/17 09:22 Dose: 20 mg Heparin Sodium (Porcine) (Heparin) 5,000 units SC Q12 [facility] PRN Reason: Protocol Last Admin: 12/01/17 09:21 Dose: 5,000 units Cefepime HCl (Maxipime 1gm) 1 gm in 100 mls @ 100 mls/hr IVPB Q12 [facility] PRN Reason: Protocol Stop: 12/06/17 22:01 Last Admin: 12/01/17 09:23 Dose: 100 mls/hr Vancomycin HCl (Vancomycin 1gm) 1 gm in 250 mls @ 167 mls/hr IVPB Q12H [facility] PRN Reason: Protocol Last Admin: 12/01/17 14:16 Dose: 167 mls/hr Levothyroxine Sodium (Synthroid) 88 mcg PO DAILY [facility] Last Admin: 12/01/17 09:23 Dose: 88 mcg Loperamide HCl (Imodium) 2 mg PO Q6 PRN PRN Reason: Diarrhea Multivitamins (Thera Tab) 1 tab PO DAILY [facility] Last Admin: 12/01/17 09:22 Dose: 1 tab Tramadol HCl (Ultram) 50 mg PO HS PRN PRN Reason: Pain, moderate (4-7) Last Admin: 11/29/17 00:25 Dose: 50 mg Zinc Sulfate (Zinc Sulfate 220 Mg Cap) 220 mg PO DAILY [facility] Last Admin: 12/01/17 09:21 Dose: 220 mg - Labs Labs: 12/01/17 05:30 12/01/17 05:30 Attending/Attestation - Attestation I have personally seen and examined this patient.: Yes I have fully participated in the care of the patient.: Yes I have reviewed all pertinent clinical information, including history, physical exam and plan: Yes Notes (Text): This is an addendum to GI progress report dictated by the GI Fellow.The patient was seen and examined earlier. Medical records, lab studies, imagings were reviewed. Last 24 hours events reviewed. Agreed with the above treatment plan as outlined in GI Fellow 's notes the with the addition of the following no further episodes of diarrrhea On examination abdomen soft non tender Plan follow up liver biopsy PET scan as outpatient Continue Antibiotics as per ID 12/01/17 21:29
[2017-12-01] MEDS: Vancomycin 1gm in NS 250ml 1 GM/250 ML BAG IVPB SCH ×2 (14:16→21:43)
--- NOTE | 2017-12-02 00:16 | PN ---
DATE: 12/01/2017 SUBJECTIVE: The patient is 87-year-old, seen and examined, lying in bed, seems to be comfortable. PHYSICAL EXAMINATION: GENERAL: She has left angle of mandible mass that is found nontender, not erythematous. Otherwise, she has nonicteric sclerae, pale conjunctivae. VITAL SIGNS: She is afebrile, pulse 66, respirations 19, blood pressure 145/75. LUNGS: Bilateral fair airflow. No rhonchi or crackle. HEART: S1 and S2 audible. ABDOMEN: Soft, nontender. No rebound. NEUROLOGIC: The patient is awake, alert, oriented, able to communicate, answers simple question. EXTREMITIES: Bilateral legs, no edema. LABORATORY DATA: WBC 7.8, hemoglobin 8.9, hematocrit 27, platelet 288. Chemistry: Sodium 143, potassium 5.5, chloride 109, CO2 of 26, BUN 26, creatinine 1, blood sugar 93. AST 73, ALT 63. Urine is positive for E. coli. Blood culture, coag-negative Staph. Repeat blood culture and urine are negative. Stool for C. difficile is negative. CT scan of the chest on 11/27/2017 shows peribronchial thickening and interstitial infiltrate at the left lung base consistent with pneumonia and bronchitis. ASSESSMENT: 1. Status post bacteremia from Staphylococcus aureus coagulase negative. 2. Left tibial fracture. 3. Escherichia coli urinary tract infection. 4. Right hepatic mass. 5. Chronic kidney disease. 6. Hypertension. 7. Coronary artery disease. 8. Cerebrovascular accident. 9. Hypothyroidism. 10. Left mandibular mass. 11. History of cerebrovascular accident in the past. 12. Hyperkalemia. PLAN: The patient is currently on carvedilol. She is on doxycycline and nebulizer treatment. She is on aspirin. She is on DVT prophylaxis. She will be given one dose of Kayexalate. We will follow up electrolyte in a.m. She is on cefepime as per ID. She is also on vancomycin 1 g every 12 hours. We will follow up her electrolyte, CBC and CMP in a.m. Romeo Wade MD [facility] # [id number]
[2017-12-02] MEDS: Albuterol-Ipratrop 3 mg / 0.5 (3 ml) UD IH SCH ×4 (01:03→19:41)
[2017-12-02 07:03] LABS: BASO # 0.02 K/mm3 (0.0-2.0); BASO % 0.2 % (0.0-3.0); EOS # 0.2 (0.0-0.7); EOS % 2.7 % (1.5-5.0); GRAN # 4.46 (1.4-6.5); GRAN % 53.8 % (50.0-68.0); HEMOGLOBIN 9.2 g/dL (12.0-16.0); LYMPH # 2.8 (1.2-3.4); LYMPH % 33.8 % (22.0-35.0); MEAN CELL VOLUME 94.2 fl (80.0-105.0); MEAN CORPUSCULAR HEMOGLOBIN 29.9 pg (25.0-35.0); MEAN CORPUSCULAR HGB CONC 31.7 g/dl (31.0-37.0); MEAN PLATELET VOLUME 9.3 fl (7.0-11.0); MONO # 0.8 (0.1-0.6); MONO % 9.5 % (1.0-6.0); RBC 3.08 10^6/uL (3.5-6.1); RED CELL DISTRIBUTION WIDTH 14.6 % (11.5-14.5); WHITE BLOOD COUNT 8.3 10^3/ul (4.5-11.0)
[2017-12-02 07:24] LABS: ALB/GLOB RATIO 0.9 (1.1-1.8); ALBUMIN 3.2 g/dL (3.0-4.8); CALCIUM 8.5 mg/dL (8.4-10.5)
[2017-12-02] MEDS: Cefepime 1gm in NS 100ml 1 GM/100 ML BAG IVPB SCH ×2 (09:07→21:08)
[2017-12-02] MEDS: Multivitamin Therapeutic Tab PO SCH (09:15)
[2017-12-02] MEDS: Cilostazol 100 mg Tab UD PO SCH (09:15)
[2017-12-02] MEDS: Levothyroxine 88 MCG TAB PO SCH (09:16)
[2017-12-02] MEDS: Amylase/Lipase/Protease 5,000 Units ECC PO SCH ×3 (09:16→17:22)
[2017-12-02] MEDS: Vancomycin 1gm in NS 250ml 1 GM/250 ML BAG IVPB SCH ×2 (10:31→21:09)
--- NOTE | 2017-12-02 13:41 | CP.PCM.PN ---
<Gus Stewart - Last Filed: 12/02/17 13:37> Subjective - Date & Time of Evaluation Date of Evaluation: 12/02/17 Time of Evaluation: 07:15 - Subjective Subjective: PGY5 GI Follow-up Pt seen and examined bedside denies any abd pain liver biospy pending tolerating diet ROS: 12 point ROS conducted, neg other than above Objective - Vital Signs/Intake and Output Vital Signs (last 24 hours): Temp Pulse Resp BP Pulse Ox 97 F L 70 19 158/75 H 95 12/02/17 07:54 12/02/17 09:17 12/02/17 07:54 12/02/17 09:17 12/02/17 07:54 Intake and Output: 12/02/17 12/02/17 06:59 18:59 Intake Total 240 Output Total 1700 Balance -1460 - Medications Medications: Current Medications Albuterol/Ipratropium (Duoneb 3 Mg/0.5 Mg (3 Ml) Ud) 3 ml IH Q2H PRN PRN Reason: Shortness of Breath Albuterol/Ipratropium (Duoneb 3 Mg/0.5 Mg (3 Ml) Ud) 3 ml IH [id number] [facility] Last Admin: 12/02/17 13:25 Dose: 3 ml Alprazolam (Xanax) 0.5 mg PO HS [facility] PRN Reason: Protocol Last Admin: 12/01/17 21:44 Dose: 0.5 mg Amlodipine Besylate (Norvasc) 5 mg PO DAILY [facility] Last Admin: 12/02/17 09:17 Dose: 5 mg Amylase (Pancrease 52809 U-5000 U-67565 U) 5,000 unit PO TID [facility] Last Admin: 12/02/17 13:06 Dose: 5,000 unit Ascorbic Acid (Vitamin C 500 Mg Tab) 500 mg PO DAILY [facility] Last Admin: 12/02/17 09:16 Dose: 500 mg Aspirin (Ecotrin) 81 mg PO DAILY [facility] Last Admin: 12/02/17 09:15 Dose: 81 mg Atorvastatin Calcium (Lipitor) 40 mg PO HS [facility] Last Admin: 12/01/17 21:44 Dose: 40 mg Carvedilol (Coreg) 12.5 mg PO BID [facility] Last Admin: 12/02/17 09:16 Dose: 12.5 mg Cilostazol (Pletal) 100 mg PO DAILY [facility] Last Admin: 12/02/17 09:15 Dose: 100 mg Doxycycline Hyclate (Doryx) 100 mg PO Q12 [facility] PRN Reason: Protocol Stop: 12/06/17 22:01 Last Admin: 12/02/17 09:16 Dose: 100 mg Escitalopram Oxalate (Lexapro) 5 mg PO DAILY [facility] Last Admin: 12/02/17 09:16 Dose: 5 mg Famotidine (Pepcid) 20 mg PO HS [facility] Last Admin: 12/01/17 21:44 Dose: 20 mg Furosemide (Lasix) 20 mg PO QOTHERDAY [facility] Last Admin: 12/01/17 09:22 Dose: 20 mg Heparin Sodium (Porcine) (Heparin) 5,000 units SC Q12 [facility] PRN Reason: Protocol Last Admin: 12/02/17 09:12 Dose: 5,000 units Cefepime HCl (Maxipime 1gm) 1 gm in 100 mls @ 100 mls/hr IVPB Q12 [facility] PRN Reason: Protocol Stop: 12/06/17 22:01 Last Admin: 12/02/17 09:07 Dose: 100 mls/hr Vancomycin HCl (Vancomycin 1gm) 1 gm in 250 mls @ 167 mls/hr IVPB Q12H [facility] PRN Reason: Protocol Last Admin: 12/02/17 10:31 Dose: 167 mls/hr Levothyroxine Sodium (Synthroid) 88 mcg PO DAILY [facility] Last Admin: 12/02/17 09:16 Dose: 88 mcg Loperamide HCl (Imodium) 2 mg PO Q6 PRN PRN Reason: Diarrhea Multivitamins (Thera Tab) 1 tab PO DAILY [facility] Last Admin: 12/02/17 09:15 Dose: 1 tab Tramadol HCl (Ultram) 50 mg PO HS PRN PRN Reason: Pain, moderate (4-7) Last Admin: 12/01/17 21:51 Dose: 50 mg Zinc Sulfate (Zinc Sulfate 220 Mg Cap) 220 mg PO DAILY [facility] Last Admin: 12/02/17 09:15 Dose: 220 mg - Labs Labs: 12/02/17 05:30 12/02/17 05:30 - Constitutional Appears: Well, No Acute Distress - Head Exam Head Exam: ATRAUMATIC, NORMOCEPHALIC - Eye Exam Eye Exam: Normal appearance Pupil Exam: NORMAL ACCOMODATION - ENT Exam ENT Exam: Mucous Membranes Moist, Normal Exam - Neck Exam Neck Exam: Normal Inspection - Respiratory Exam Respiratory Exam: Clear to Ausculation Bilateral, NORMAL BREATHING PATTERN. absent: Rales, Rhonchi, Wheezes, Respiratory Distress - Cardiovascular Exam Cardiovascular Exam: REGULAR RHYTHM, +S1, +S2 - GI/Abdominal Exam GI & Abdominal Exam: Soft, Normal Bowel Sounds. 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 Calixto <Clinton Calixto V - Last Filed: 12/02/17 18:26> Objective - Vital Signs/Intake and Output Vital Signs (last 24 hours): Temp Pulse Resp BP Pulse Ox 98.1 F 66 19 121/66 95 12/02/17 17:09 12/02/17 17:23 12/02/17 17:09 12/02/17 17:23 12/02/17 17:09 Intake and Output: 12/02/17 12/02/17 06:59 18:59 Intake Total 240 Output Total 1700 Balance -1460 - Medications Medications: Current Medications Albuterol/Ipratropium (Duoneb 3 Mg/0.5 Mg (3 Ml) Ud) 3 ml IH Q2H PRN PRN Reason: Shortness of Breath Albuterol/Ipratropium (Duoneb 3 Mg/0.5 Mg (3 Ml) Ud) 3 ml IH [id number] [facility] Last Admin: 12/02/17 13:25 Dose: 3 ml Alprazolam (Xanax) 0.5 mg PO HS [facility] PRN Reason: Protocol Last Admin: 12/01/17 21:44 Dose: 0.5 mg Amlodipine Besylate (Norvasc) 5 mg PO DAILY [facility] Last Admin: 12/02/17 09:17 Dose: 5 mg Amylase (Pancrease 88011 U-5000 U-26176 U) 5,000 unit PO TID [facility] Last Admin: 12/02/17 17:22 Dose: 5,000 unit Ascorbic Acid (Vitamin C 500 Mg Tab) 500 mg PO DAILY [facility] Last Admin: 12/02/17 09:16 Dose: 500 mg Aspirin (Ecotrin) 81 mg PO DAILY [facility] Last Admin: 12/02/17 09:15 Dose: 81 mg Atorvastatin Calcium (Lipitor) 40 mg PO HS [facility] Last Admin: 12/01/17 21:44 Dose: 40 mg Carvedilol (Coreg) 12.5 mg PO BID [facility] Last Admin: 12/02/17 17:23 Dose: 12.5 mg Cilostazol (Pletal) 100 mg PO DAILY [facility] Last Admin: 12/02/17 09:15 Dose: 100 mg Doxycycline Hyclate (Doryx) 100 mg PO Q12 [facility] PRN Reason: Protocol Stop: 12/06/17 22:01 Last Admin: 12/02/17 09:16 Dose: 100 mg Escitalopram Oxalate (Lexapro) 5 mg PO DAILY [facility] Last Admin: 12/02/17 09:16 Dose: 5 mg Famotidine (Pepcid) 20 mg PO HS [facility] Last Admin: 12/01/17 21:44 Dose: 20 mg Furosemide (Lasix) 20 mg PO QOTHERDAY [facility] Last Admin: 12/01/17 09:22 Dose: 20 mg Heparin Sodium (Porcine) (Heparin) 5,000 units SC Q12 [facility] PRN Reason: Protocol Last Admin: 12/02/17 09:12 Dose: 5,000 units Cefepime HCl (Maxipime 1gm) 1 gm in 100 mls @ 100 mls/hr IVPB Q12 [facility] PRN Reason: Protocol Stop: 12/06/17 22:01 Last Admin: 12/02/17 09:07 Dose: 100 mls/hr Vancomycin HCl (Vancomycin 1gm) 1 gm in 250 mls @ 167 mls/hr IVPB Q12H [facility] PRN Reason: Protocol Last Admin: 12/02/17 10:31 Dose: 167 mls/hr Levothyroxine Sodium (Synthroid) 88 mcg PO DAILY [facility] Last Admin: 12/02/17 09:16 Dose: 88 mcg Loperamide HCl (Imodium) 2 mg PO Q6 PRN PRN Reason: Diarrhea Multivitamins (Thera Tab) 1 tab PO DAILY [facility] Last Admin: 12/02/17 09:15 Dose: 1 tab Tramadol HCl (Ultram) 50 mg PO HS PRN PRN Reason: Pain, moderate (4-7) Last Admin: 12/01/17 21:51 Dose: 50 mg Zinc Sulfate (Zinc Sulfate 220 Mg Cap) 220 mg PO DAILY [facility] Last Admin: 12/02/17 09:15 Dose: 220 mg - Labs Labs: 12/02/17 05:30 12/02/17 05:30 Attending/Attestation - Attestation I have personally seen and examined this patient.: Yes I have fully participated in the care of the patient.: Yes I have reviewed all pertinent clinical information, including history, physical exam and plan: Yes Notes (Text): This is an addendum to GI progress report dictated by the GI Fellow.The patient was seen and examined earlier. Medical records, lab studies, imagings were reviewed. Last 24 hours events reviewed. Agreed with the above treatment plan as outlined in GI Fellow 's notes the with the addition of the following' No diarrhea Tolerating diet Awaiting for repeat culture Plan for liver biopsy of the lesion Elevated CA 199 awaiting for repeat cultures, antibiotics as per ID 12/02/17 18:25
--- NOTE | 2017-12-02 13:44 | PN ---
DATE: 12/02/2017 PHYSICAL EXAMINATION VITAL SIGNS: Her today's temperature is 97, blood pressure is 150/70, respiratory rate of 19, heart rate of 70. HEENT: Unremarkable. NECK: Supple. LUNGS: Have decreased breath sounds. HEART: Normal S1 and S2. ABDOMEN: Soft, nontender. LABORATORY DATA: Reveals a white count of 8.3, hemoglobin of 9, platelets of 321. BUN of 24, creatinine of 1.1 and CA 19-9 antigen is elevated. Urinalysis is noted. Microbiology reveals E. coli in the urine and coag-negative staph in the blood and repeat blood cultures are negative. ASSESSMENT AND PLAN: This is an 87-year-old female seen earlier today in 360, bed 1 with a left-sided healthcare-associated pneumonia, possible gram-positive cocci, possible gram-negative ann and elevated procalcitonin with a coagulase-negative staphylococcus bacteremia and the patient with Escherichia coli urinary tract infection, diastolic congestive heart failure on top of chronic congestive heart failure, status post acute renal failure and day #6 of doxycycline and cefepime. The patient is also on vancomycin for the coagulase-negative staphylococcus, with an echo which shows no vegetations and repeat blood cultures are no growth. The patient does not have a Port-A-Cath and the patient had a CAT scan of the chest on the , peribronchial thickening. Dr. Wade's note is reviewed. No intravascular devices are noted. The patient has had cardiac cath, angioplasty in the past. Most likely, the coagulase-negative staphylococcus is a contamination although it is true bottles, the repeat blood cultures are no growth. Also, the patient did have mild elevation of procalcitonin. Dr. Calixto's note is reviewed. We will follow with you and check on the final repeat panculture results. Rich Bonilla MD
--- NOTE | 2017-12-02 20:08 | PN ---
DATE: 12/02/2017 SUBJECTIVE: Patient is 87 years old, seen and examined, lying in bed, seems to be comfortable. Daughter by the bedside, just had cleanup done. Denies any chest pain or shortness of breath. Eating and tolerating. Otherwise, there were no complaints. PHYSICAL EXAMINATION: VITAL SIGNS: She is afebrile, pulse 70, respirations 19, and blood pressure 158/75. LUNGS: Bilateral fair airflow. No rhonchi or crackles. HEART: S1, S2 audible. ABDOMEN: Soft, obese, and nontender. No rebound. No guarding. NEUROLOGIC: Patient is awake, alert, and oriented. Able to communicate. HEAD AND NECK: She has left mandibular mass benign. LABORATORY DATA: WBC of 8.3, hemoglobin 9.2, hematocrit 29, and platelets 321. Chemistry: Sodium 142, potassium 4.4, chloride 108, CO2 of 24. BUN 24, creatinine 1. AST 74, ALT 70. Her CA 19-9 is 4840. CEA is 43. ASSESSMENT: 1. Resolving sepsis. 2. Coagulase-negative Staphylococcus aureus bacteriemia. The repeat cultures are negative. 3. Escherichia coli urinary tract infection. 4. Elevated carcinogenic markers. 5. Hyperkalemia that is resolved. 6. History of cerebrovascular accident. 7. Coronary artery disease. 8. Hypothyroidism. 9. Right hepatic mass. 10. Left tibial fracture. PLAN: We will continue patient on current medications. She might have CAT scan done as outpatient for targeted chemo or other treatment. Continue nebulizer treatment. She will be followed by Dr. Hadley in the a.m. Romeo Wade MD
--- NOTE | 2017-12-03 00:20 | CP.PCM.CON ---
History of Present Illness - History of Present Illness History of Present Illness: Pt. is a 87 year old female with multiple co-morbid conditions admitted with PNA. She was found to have a liver mass around 3 cm in right lobe of liver on CT abdomen done on last admission. MRCP without contrast was also done that did not show additional lesions or mass in pancreas. She does not have any pancreatic mass. She has chronic diarrhea and weight loss. Right sided stroke with residual weakness . Review of Systems - Constitutional Constitutional: As Per HPI - EENT Eyes: absent: As Per HPI, Blind Spots, Blurred Vision, Change in Vision, Decreased Night Vision, Diplopia, Discharge, Dry Eye, Exophthalmos, Floaters, Irritation, Itchy Eyes, Loss of Peripheral Vision, Pain, Photophobia, Requires Corrective Lenses, Sees Flashes, Spots in Vision, Tunnel Vision, Other Visual Disturbances, Loss of Vision, Other Ears: absent: As Per HPI, Decreased Hearing, Ear Discharge, Ear Pain, Tinnitus, Abnormal Hearing, Disequilibrium, Dizziness, Other Nose/Mouth/Throat: absent: As Per HPI, Epistaxis, Nasal Congestion, Nasal Discharge, Nasal Obstruction, Nasal Trauma, Nose Pain, Post Nasal Drip, Sinus Pain, Sinus Pressure, Bleeding Gums, Change in Voice, Dental Pain, Dry Mouth, Dysphagia, Halitosis, Hoarsness, Lip Swelling, Mouth Lesions, Mouth Pain, Odynophagia, Sore Throat, Throat Swelling, Tongue Swelling, Facial Pain, Neck Pain, Neck Mass, Other - Breasts Breasts: absent: As Per HPI, Change in Shape, Mass, Pain, Nipple Discharge, Nipple Inversion, Skin Changes, Swelling, Other - Cardiovascular Cardiovascular: absent: As Per HPI, Acrocyanosis, Chest Pain, Chest Pain at Rest , Chest Pain with Activity, Claudication, Diaphoresis, Dyspnea, Dyspnea on Exertion, Edema, Irregular Heart Rhythm, Pain Radiating to Arm/Neck/Jaw, Leg Edema, Leg Ulcers, Lightheadedness, Orthopnea, Palpitations, Paroxysmal Nocturnal Dyspnea, Pedal Edema, Radiating Pain, Rapid Heart Rate, Slow Heart Rate, Syncope, Other - Respiratory Respiratory: As Per HPI - Gastrointestinal Gastrointestinal: As Per HPI - Genitourinary Genitourinary: As Per HPI. absent: Change in Urinary Stream, Difficulty Urinating, Dysuria, Flank Pain, Hematuria, Pyuria, Nocturia, Urinary Incontinence, Urinary Frequency, Urinary Hesitance, Urinary Urgency, Voiding Freq/Small Amts, Freq UTI, Hx Renal/Bladder Calculi, Hx /Renal Surgery, Bladder Distension, Other - Reproductive: Female Reproductive:Female: absent: As Per HPI, Amenorrhea, Amenorrhea/ Control, Currently Menstual, Cycle <21 Days, Cycle >35 Days, Cycle Variable, Menses 1-7 Days, Menses >/= 8 Days, Menses Variable, Cycle > 4 Weeks Between, No Menses for 6 Months, Heavy Menses, Light Menses, Normal Menses, Spotting Between Cycles , S/P Hysterectomy, Menopausal, Post Menopausal, Premenarche, Abnormal Vaginal Bleeding, Dysmenorrhea, Dyspareunia, Genital Lesions, Genital Pruritis, Pelvic Pain, Prolapse Symptoms, Sexual Dysfunction, Vaginal Discharge, Vaginal Dryness , Vaginal Odor, Vaginal Pruritis, Other - Musculoskeletal Musculoskeletal: As Per HPI - Integumentary Integumentary: absent: As Per HPI, Acne, Alopecia, Bleeding Lesions, Change in Hair, Change in Nails, Change in Pigmentation, Changing Lesions, Dry Skin, Erythema, Furuncle, Hirsutism, Lesions, New Lesions, Non-Healing Lesions, Photosensitivity, Pruritus, Rash, Skin Pain, Skin Ulcer, Sores, Striae, Swelling , Unusual Bruising, Wounds, Jaundice, Other - Neurological Neurological: As Per HPI - Psychiatric Psychiatric: absent: As Per HPI, Abnormal Sleep Pattern, Anhedonia, Anxiety, Auditory Hallucinations, Behavioral Changes, Change in Appetite, Change in Libido, Confusion, Depression, Difficulty Concentrating, Hallucinations, Homicidal Ideation, Hopelessness, Irritability, Memory Loss, Mood Swings, Panic Attacks, Paranoia, Suicidal Ideation, Visual Hallucinations, Tactile Hallucinations, Other - Endocrine Endocrine: absent: As Per HPI, Change in Body Appearance, Change in Libido, Cold Intolorance, Deepening of Voice, Excessive Sweating, Fatigue, Flushing, Heat Intolorance, Increase in Ring/Shoe/Hat Size, Palpitations, Polydipsia, Polyphagia, Polyuria, Other - Hematologic/Lymphatic Hematologic: As Per HPI Past Patient History - Infectious Disease Hx of Infectious Diseases: None - Tetanus Immunizations Tetanus Immunization: Unknown - Past Medical History & Family History Past Medical History?: Yes - Past Social History Smoking Status: Former Smoker - CARDIAC Hx Cardiac Disorders: Yes Hx Congestive Heart Failure: Yes Hx Hypertension: Yes - PULMONARY Hx Respiratory Disorders: No - NEUROLOGICAL HX Cerebrovascular Accident: Yes (with left side weakness 09/2011) - HEENT Hx HEENT Problems: Yes (eyeglasses) Hx Cataracts: Yes (LEFT sx) Other/Comment: glasses, r eye lazy eye since childhood - RENAL Hx Chronic Kidney Disease: No - ENDOCRINE/METABOLIC Hx Hypothyroidism: Yes - HEMATOLOGICAL/ONCOLOGICAL Hx Blood Disorders: Yes Hx Anemia: Yes (blood transfusion) Hx Shingles: Yes (back "yrs ago") - INTEGUMENTARY Hx Dermatological Problems: Yes Other/Comment: large parotid mass left neck,l heel ulcer healed, skin discolorations left elbow, multiple skin discolorations r arm, b/l lower extremity brown skin discolorations, 1cm red area of skin to r buttock, - MUSCULOSKELETAL/RHEUMATOLOGICAL Hx Arthritis: Yes - GASTROINTESTINAL Hx Gastrointestinal Disorders: Yes Hx Gastroesophageal Reflux: Yes Other/Comment: gastritis - GENITOURINARY/GYNECOLOGICAL Hx Genitourinary Disorders: Yes Hx Urinary Tract Infection: Yes (recent) Other/Comment: urinary urgency, pt recently was experiencing urgency incontinency especially at night+uti finished 7 days of abx, incontinency better - PSYCHIATRIC Hx Psychophysiologic Disorder: Yes Hx Anxiety: Yes Hx Depression: Yes ([facility]) Hx Substance Use: No - SURGICAL HISTORY Hx Cardiac Catheterization: Yes Hx Coronary Stent: Yes Hx Orthopedic Surgery: Yes (left hip ORIF) Other/Comment: sx for ulcer to left ft 2nd toe healed, bx x2 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 has had mass over 20 yrs - ANESTHESIA Hx Anesthesia: Yes Hx Anesthesia Reactions: No Hx Malignant Hyperthermia: No Meds Allergies/Adverse Reactions: Allergies Allergy/AdvReac Type Severity Reaction Status Date / Time No Known Allergies Allergy Verified 03/05/17 11:36 - Medications Medications: Current Medications Albuterol/Ipratropium (Duoneb 3 Mg/0.5 Mg (3 Ml) Ud) 3 ml IH Q2H PRN PRN Reason: Shortness of Breath Albuterol/Ipratropium (Duoneb 3 Mg/0.5 Mg (3 Ml) Ud) 3 ml IH [id number] [facility] Last Admin: 12/02/17 19:41 Dose: 3 ml Alprazolam (Xanax) 0.5 mg PO HS [facility] PRN Reason: Protocol Last Admin: 12/02/17 21:10 Dose: 0.5 mg Amlodipine Besylate (Norvasc) 5 mg PO DAILY [facility] Last Admin: 12/02/17 09:17 Dose: 5 mg Amylase (Pancrease 13382 U-5000 [id number] U) 5,000 unit PO TID [facility] Last Admin: 12/02/17 17:22 Dose: 5,000 unit Ascorbic Acid (Vitamin C 500 Mg Tab) 500 mg PO DAILY [facility] Last Admin: 12/02/17 09:16 Dose: 500 mg Aspirin (Ecotrin) 81 mg PO DAILY [facility] Last Admin: 12/02/17 09:15 Dose: 81 mg Atorvastatin Calcium (Lipitor) 40 mg PO HS [facility] Last Admin: 12/02/17 21:08 Dose: 40 mg Carvedilol (Coreg) 12.5 mg PO BID [facility] Last Admin: 12/02/17 17:23 Dose: 12.5 mg Cilostazol (Pletal) 100 mg PO DAILY [facility] Last Admin: 12/02/17 09:15 Dose: 100 mg Doxycycline Hyclate (Doryx) 100 mg PO Q12 [facility] PRN Reason: Protocol Stop: 12/06/17 22:01 Last Admin: 12/02/17 21:07 Dose: 100 mg Escitalopram Oxalate (Lexapro) 5 mg PO DAILY [facility] Last Admin: 12/02/17 09:16 Dose: 5 mg Famotidine (Pepcid) 20 mg PO HS [facility] Last Admin: 12/02/17 21:09 Dose: 20 mg Furosemide (Lasix) 20 mg PO QOTHERDAY [facility] Last Admin: 12/01/17 09:22 Dose: 20 mg Heparin Sodium (Porcine) (Heparin) 5,000 units SC Q12 [facility] PRN Reason: Protocol Last Admin: 12/02/17 21:08 Dose: 5,000 units Cefepime HCl (Maxipime 1gm) 1 gm in 100 mls @ 100 mls/hr IVPB Q12 [facility] PRN Reason: Protocol Stop: 12/06/17 22:01 Last Admin: 12/02/17 21:08 Dose: 100 mls/hr Vancomycin HCl (Vancomycin 1gm) 1 gm in 250 mls @ 167 mls/hr IVPB Q12H [facility] PRN Reason: Protocol Last Admin: 12/02/17 21:09 Dose: 167 mls/hr Levothyroxine Sodium (Synthroid) 88 mcg PO DAILY [facility] Last Admin: 12/02/17 09:16 Dose: 88 mcg Loperamide HCl (Imodium) 2 mg PO Q6 PRN PRN Reason: Diarrhea Multivitamins (Thera Tab) 1 tab PO DAILY [facility] Last Admin: 12/02/17 09:15 Dose: 1 tab Tramadol HCl (Ultram) 50 mg PO HS PRN PRN Reason: Pain, moderate (4-7) Last Admin: 12/02/17 21:21 Dose: 50 mg Zinc Sulfate (Zinc Sulfate 220 Mg Cap) 220 mg PO DAILY [facility] Last Admin: 12/02/17 09:15 Dose: 220 mg Physical Exam - Constitutional Appears: Chronically Ill - Head Exam Head Exam: ATRAUMATIC, NORMAL INSPECTION, NORMOCEPHALIC - Eye Exam Eye Exam: absent: Conjunctival injection, EOMI, Normal appearance, Nystagmus, Periorbital swelling, Periorbital tenderness, PERRL, Scleral icterus - ENT Exam ENT Exam: absent: Mucous Membranes Dry, Mucous Membranes Moist, Normal Exam, Normal External Ear Exam, Normal Oropharynx, TM's Normal Bilaterally - Neck Exam Neck exam: Negative for: Full Rom, Lymphadenopathy, Meningismus, Normal Inspection, Tenderness, Thyromegaly - Respiratory Exam Respiratory Exam: Clear to Auscultation Bilateral, NORMAL BREATHING PATTERN - Cardiovascular Exam Cardiovascular Exam: REGULAR RHYTHM, +S1, +S2 - GI/Abdominal Exam GI & Abdominal Exam: Normal Bowel Sounds, Soft - Extremities Exam Extremities exam: Positive for: normal inspection - Back Exam Back exam: NORMAL INSPECTION - Neurological Exam Neurological exam: Alert, Oriented x3 - Psychiatric Exam Psychiatric exam: Flat Affect - Skin Skin Exam: Pallor Results - Vital Signs Recent Vital Signs: Last Vital Signs Temp 98.1 F 12/02/17 17:09 Pulse 66 12/02/17 17:23 Resp 19 12/02/17 17:09 BP 121/66 12/02/17 17:23 Pulse Ox 95 12/02/17 17:09 - Labs Result Diagrams: 12/02/17 05:30 12/02/17 05:30 Labs: Laboratory Results - last 24 hr 12/02/17 12/02/17 05:30 05:30 WBC 8.3 RBC 3.08 L Hgb 9.2 L Hct 29.0 L MCV 94.2 MCH 29.9 MCHC 31.7 RDW 14.6 H Plt Count 321 MPV 9.3 Gran % 53.8 Lymph % (Auto) 33.8 [place] % (Auto) 9.5 H Eos % (Auto) 2.7 Baso % (Auto) 0.2 Gran # 4.46 Lymph # (Auto) 2.8 [place] # (Auto) 0.8 H Eos # (Auto) 0.2 Baso # (Auto) 0.02 Sodium 142 Potassium 4.4 Chloride 108 H Carbon Dioxide 24 Anion Gap 14 BUN 24 H Creatinine 1.1 Est GFR ( Amer) 57 Est GFR (Non-Af Amer) 47 Random Glucose 101 Calcium 8.5 Total Bilirubin 0.3 AST 74 H ALT 80 H Alkaline Phosphatase 86 Total Protein 6.9 Albumin 3.2 Globulin 3.7 Albumin/Globulin Ratio 0.9 L Assessment & Plan - Assessment and Plan (Free Text) Assessment: 1. 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 CA 19.9 elevated to 1600. CEA, CA 125 normal. Discussed with daughter and son at length. I suggested PET scan as out patient. It might give more information regarding pancreatic mass if any or source of primary. HCG, AFP will be ordered to r/o primary liver cancer. Daughter agreed with plan and son who is POA was in agreement too. 2. Anemia : multifactorial- chronic disease, iron deficiency, chronic kidney disease. 3. PNA : on IV antibiotics. 4. UA, urine culture pending. Thank you Dr. Hadley for allowing us to participate in her care. - Date & Time Date: 11/27/17 Time: 18:00
[2017-12-03] MEDS: Albuterol-Ipratrop 3 mg / 0.5 (3 ml) UD IH SCH ×4 (02:00→19:47)
--- NOTE | 2017-12-03 08:30 | PN ---
DATE: 12/02/2017 Since I saw the patient last time a few days ago, a CAT scan was done of the left knee. It did show a nondisplaced fracture of the lateral tibial plateau region, evidently not structurally important because she can put weight on the leg and walk. Because of the limited ability to ambulate, we will accept the fracture as it is and not do any surgery and thus to protect her with good physical therapy support. She does have paresis of that left lower extremity as well, but she has very limited ability to ambulate, so we could manage her case without surgery. She does not have any pain since we took Depo Medrol for the arthritis. We just have to follow and make sure the fracture does not go out of place, which will should not happen if she does not fall again. We will follow her and hopefully, she can go to extended subacute rehab for further therapy. Jakob Rg DO
--- NOTE | 2017-12-03 08:56 | CP.PCM.PN ---
<Radha Jean-Baptiste - Last Filed: 12/03/17 11:01> Subjective - Date & Time of Evaluation Date of Evaluation: 12/03/17 Time of Evaluation: 07:00 - Subjective Subjective: Radha Jean-Baptiste DO, PGY-2: GI Progress Note for Dr. Calixto Patient was seen and examined at bedside. Patient denies any abdominal pain, nasuea, vomiting, or diarrhea. She is tolerating diet without difficulty. Chart review indicates no adverse events overnight. Patient is pending biopsy of liver lesion by Interventional Radiology. Objective - Vital Signs/Intake and Output Vital Signs (last 24 hours): Temp Pulse Resp BP Pulse Ox 97 F L 55 L 20 151/62 H 99 12/03/17 07:56 12/03/17 07:56 12/03/17 07:56 12/03/17 07:56 12/03/17 07:56 Intake and Output: 12/03/17 12/03/17 06:59 18:59 Intake Total 120 Balance 120 - Medications Medications: Current Medications Albuterol/Ipratropium (Duoneb 3 Mg/0.5 Mg (3 Ml) Ud) 3 ml IH Q2H PRN PRN Reason: Shortness of Breath Albuterol/Ipratropium (Duoneb 3 Mg/0.5 Mg (3 Ml) Ud) 3 ml IH [id number] [facility] Last Admin: 12/03/17 07:34 Dose: 3 ml Alprazolam (Xanax) 0.5 mg PO HS [facility] PRN Reason: Protocol Last Admin: 12/02/17 21:10 Dose: 0.5 mg Amlodipine Besylate (Norvasc) 5 mg PO DAILY [facility] Last Admin: 12/02/17 09:17 Dose: 5 mg Amylase (Pancrease 24583 U-5000 U-[id number] U) 5,000 unit PO TID [facility] Last Admin: 12/02/17 17:22 Dose: 5,000 unit Ascorbic Acid (Vitamin C 500 Mg Tab) 500 mg PO DAILY [facility] Last Admin: 12/02/17 09:16 Dose: 500 mg Aspirin (Ecotrin) 81 mg PO DAILY [facility] Last Admin: 12/02/17 09:15 Dose: 81 mg Atorvastatin Calcium (Lipitor) 40 mg PO HS [facility] Last Admin: 12/02/17 21:08 Dose: 40 mg Carvedilol (Coreg) 12.5 mg PO BID [facility] Last Admin: 12/02/17 17:23 Dose: 12.5 mg Cilostazol (Pletal) 100 mg PO DAILY [facility] Last Admin: 12/02/17 09:15 Dose: 100 mg Doxycycline Hyclate (Doryx) 100 mg PO Q12 [facility] PRN Reason: Protocol Stop: 12/06/17 22:01 Last Admin: 12/02/17 21:07 Dose: 100 mg Escitalopram Oxalate (Lexapro) 5 mg PO DAILY [facility] Last Admin: 12/02/17 09:16 Dose: 5 mg Famotidine (Pepcid) 20 mg PO HS [facility] Last Admin: 12/02/17 21:09 Dose: 20 mg Furosemide (Lasix) 20 mg PO QOTHERDAY [facility] Last Admin: 12/01/17 09:22 Dose: 20 mg Heparin Sodium (Porcine) (Heparin) 5,000 units SC Q12 [facility] PRN Reason: Protocol Last Admin: 12/02/17 21:08 Dose: 5,000 units Cefepime HCl (Maxipime 1gm) 1 gm in 100 mls @ 100 mls/hr IVPB Q12 [facility] PRN Reason: Protocol Stop: 12/06/17 22:01 Last Admin: 12/02/17 21:08 Dose: 100 mls/hr Vancomycin HCl (Vancomycin 1gm) 1 gm in 250 mls @ 167 mls/hr IVPB Q12H [facility] PRN Reason: Protocol Last Admin: 12/02/17 21:09 Dose: 167 mls/hr Levothyroxine Sodium (Synthroid) 88 mcg PO DAILY [facility] Last Admin: 12/02/17 09:16 Dose: 88 mcg Loperamide HCl (Imodium) 2 mg PO Q6 PRN PRN Reason: Diarrhea Multivitamins (Thera Tab) 1 tab PO DAILY [facility] Last Admin: 12/02/17 09:15 Dose: 1 tab Tramadol HCl (Ultram) 50 mg PO HS PRN PRN Reason: Pain, moderate (4-7) Last Admin: 12/02/17 21:21 Dose: 50 mg Zinc Sulfate (Zinc Sulfate 220 Mg Cap) 220 mg PO DAILY [facility] Last Admin: 12/02/17 09:15 Dose: 220 mg - Labs Labs: 12/02/17 05:30 12/02/17 05:30 - Constitutional Appears: Well, Non-toxic - Head Exam Additional comments: large left sided parotid gland - Eye Exam Eye Exam: EOMI, Normal appearance - ENT Exam ENT Exam: Mucous Membranes Moist - Neck Exam Neck Exam: Normal Inspection. absent: Lymphadenopathy, Thyromegaly - Respiratory Exam Respiratory Exam: NORMAL BREATHING PATTERN. absent: Accessory Muscle Use - Cardiovascular Exam Cardiovascular Exam: +S1, +S2. absent: Tachycardia - GI/Abdominal Exam GI & Abdominal Exam: Soft, Normal Bowel Sounds. absent: Guarding, Rebound - Extremities Exam Extremities Exam: Normal Inspection. absent: Calf Tenderness - Neurological Exam Neurological Exam: Alert, Awake - Psychiatric Exam Psychiatric exam: Normal Affect, Normal Mood - Skin Skin Exam: Dry, Intact, Normal Color, Warm Assessment and Plan - Assessment and Plan (Free Text) Assessment: Anemia Liver mass, r/o carcinoma, last MRCP from last admission suspicious for liver lesion Elevated CA19-9/CEA Pneumonia/Bronchitis Bacteremia Non malignant left parotid mass H/O CVA w/ left sided weakness UTI, (+) Ecoli Diarrhea resolved, cdiff negative PLAN: on IV and oral antibiotics as per ID oncology on case, recommend PET Family appears agreeable for liver biopsy Blood culture positive Blood cultures redrawn and are negative x2 on 11/29 continue GI prophylaxis on Pancrease on Heparin SQ monitor h/g and for overt GI bleeding Seen and discussed w/ Dr. Calixto <Clinton Calixto V - Last Filed: 12/03/17 21:40> Objective - Vital Signs/Intake and Output Vital Signs (last 24 hours): Temp Pulse Resp BP Pulse Ox 96.2 F L 61 20 151/70 H 96 12/03/17 17:11 12/03/17 18:06 12/03/17 17:11 12/03/17 18:06 12/03/17 17:11 - Medications Medications: Current Medications Acetaminophen (Tylenol 325mg Tab) 650 mg PO Q4 PRN PRN Reason: Pain, Mild (1-3) Albuterol/Ipratropium (Duoneb 3 Mg/0.5 Mg (3 Ml) Ud) 3 ml IH Q2H PRN PRN Reason: Shortness of Breath Albuterol/Ipratropium (Duoneb 3 Mg/0.5 Mg (3 Ml) Ud) 3 ml IH [id number] [facility] Last Admin: 12/03/17 19:47 Dose: 3 ml Alprazolam (Xanax) 0.5 mg PO HS [facility] PRN Reason: Protocol Last Admin: 12/02/17 21:10 Dose: 0.5 mg Amlodipine Besylate (Norvasc) 5 mg PO DAILY [facility] Last Admin: 12/03/17 10:03 Dose: 5 mg Amylase (Pancrease 45578 U-5000 [id number] U) 5,000 unit PO TID [facility] Last Admin: 12/03/17 18:06 Dose: 5,000 unit Ascorbic Acid (Vitamin C 500 Mg Tab) 500 mg PO DAILY [facility] Last Admin: 12/03/17 10:01 Dose: 500 mg Aspirin (Ecotrin) 81 mg PO DAILY [facility] Last Admin: 12/03/17 10:01 Dose: 81 mg Atorvastatin Calcium (Lipitor) 40 mg PO HS [facility] Last Admin: 12/02/17 21:08 Dose: 40 mg Carvedilol (Coreg) 12.5 mg PO BID [facility] Last Admin: 12/03/17 18:06 Dose: 12.5 mg Cilostazol (Pletal) 100 mg PO DAILY [facility] Last Admin: 12/03/17 10:02 Dose: 100 mg Doxycycline Hyclate (Doryx) 100 mg PO Q12 [facility] PRN Reason: Protocol Stop: 12/06/17 22:01 Last Admin: 12/03/17 10:01 Dose: 100 mg Escitalopram Oxalate (Lexapro) 5 mg PO DAILY [facility] Last Admin: 12/03/17 10:01 Dose: 5 mg Famotidine (Pepcid) 20 mg PO HS [facility] Last Admin: 12/02/17 21:09 Dose: 20 mg Furosemide (Lasix) 20 mg PO QOTHERDAY [facility] Last Admin: 12/03/17 10:01 Dose: 20 mg Heparin Sodium (Porcine) (Heparin) 5,000 units SC Q12 [facility] PRN Reason: Protocol Last Admin: 12/03/17 10:00 Dose: 5,000 units Levothyroxine Sodium (Synthroid) 88 mcg PO DAILY [facility] Last Admin: 12/03/17 10:01 Dose: 88 mcg Loperamide HCl (Imodium) 2 mg PO Q6 PRN PRN Reason: Diarrhea Multivitamins (Thera Tab) 1 tab PO DAILY [facility] Last Admin: 12/03/17 10:02 Dose: 1 tab Ondansetron HCl (Zofran Inj) 4 mg IVP Q6H PRN PRN Reason: Nausea/Vomiting Last Admin: 12/03/17 15:20 Dose: 4 mg Oxycodone/Acetaminophen (Percocet 5/325 Mg Tab) 1 tab PO Q4H PRN PRN Reason: Pain, moderate (4-7) Stop: 12/06/17 14:52 Zinc Sulfate (Zinc Sulfate 220 Mg Cap) 220 mg PO DAILY [facility] Last Admin: 12/03/17 10:01 Dose: 220 mg - Labs Labs: 12/03/17 09:00 12/03/17 09:00 PT 12.4 SECONDS (9.4-12.5) 12/03/17 09:00 INR 1.08 (0.93-1.08) 12/03/17 09:00 Attending/Attestation - Attestation I have personally seen and examined this patient.: Yes I have fully participated in the care of the patient.: Yes I have reviewed all pertinent clinical information, including history, physical exam and plan: Yes Notes (Text): This is an addendum to GI followup report dictated by the Receiver Stocker.The patient was seen an that we need to change it here d examined earlier. Medical records, lab studies, imagings were reviewed. Last 24 hours events reviewed. Agreed with the above treatment plan as outlined in Receiver Stocker 's notes the with the addition of the following No complaints of abdominal pain Improved diarrhea On examination abdomen soft no tenderness Continue antibiotics as per ID Elevated CA 199 plan for liver biopsy as no other focal lesion identifiable to explain the significantly elevated CA [address] Hadley and Dr. Rodriguez 12/03/17 21:38
[2017-12-03 09:15] LABS: BASO # 0.02 K/mm3 (0.0-2.0); BASO % 0.2 % (0.0-3.0); EOS # 0.3 (0.0-0.7); EOS % 3.5 % (1.5-5.0); GRAN # 4.67 (1.4-6.5); GRAN % 48.8 % (50.0-68.0); HEMOGLOBIN 9.7 g/dL (12.0-16.0); LYMPH # 3.7 (1.2-3.4); LYMPH % 38.2 % (22.0-35.0); MEAN CELL VOLUME 97.2 fl (80.0-105.0); MEAN CORPUSCULAR HEMOGLOBIN 30.3 pg (25.0-35.0); MEAN CORPUSCULAR HGB CONC 31.2 g/dl (31.0-37.0); MEAN PLATELET VOLUME 9.7 fl (7.0-11.0); MONO # 0.9 (0.1-0.6); MONO % 9.3 % (1.0-6.0); RBC 3.2 10^6/uL (3.5-6.1); RED CELL DISTRIBUTION WIDTH 14.6 % (11.5-14.5); WHITE BLOOD COUNT 9.6 10^3/ul (4.5-11.0)
[2017-12-03 09:21] LABS: INR 1.08 (0.93-1.08); PROTHROMBIN TIME 12.4 SECONDS (9.4-12.5)
[2017-12-03 09:25] LABS: ALB/GLOB RATIO 0.9 (1.1-1.8); ALBUMIN 3.3 g/dL (3.0-4.8); ALT/SGPT 85 U/L (7-56); AST/SGOT 60 U/L (14-36); BLOOD UREA NITROGEN 24 mg/dL (7-21); CALCIUM 8.9 mg/dL (8.4-10.5); GFR AFRICAN-AMERICAN > 60; GFR NON-AFRICAN AMERICAN 53
[2017-12-03] MEDS: Levothyroxine 88 MCG TAB PO SCH (10:01)
[2017-12-03] MEDS: Amylase/Lipase/Protease 5,000 Units ECC PO SCH ×3 (10:02→18:06)
[2017-12-03] MEDS: Cilostazol 100 mg Tab UD PO SCH (10:02)
[2017-12-03] MEDS: Multivitamin Therapeutic Tab PO SCH ×2 (10:02→15:20)
[2017-12-03] MEDS: Cefepime 1gm in NS 100ml 1 GM/100 ML BAG IVPB SCH (10:04)
--- NOTE | 2017-12-03 10:49 | CP.PCM.PN ---
<Vero Vital - Last Filed: 12/03/17 11:39> Subjective - Date & Time of Evaluation Date of Evaluation: 12/03/17 Time of Evaluation: 07:00 - Subjective Subjective: PGY-[address] Hadley No acute complain. Tolerating PT. Denies CP, SOB, N/V/D/C, dysuria Objective - Vital Signs/Intake and Output Vital Signs (last 24 hours): Temp Pulse Resp BP Pulse Ox 97 F L 64 20 151/62 H 99 12/03/17 07:56 12/03/17 10:03 12/03/17 07:56 12/03/17 10:03 12/03/17 07:56 Intake and Output: 12/03/17 12/03/17 06:59 18:59 Intake Total 120 Balance 120 - Medications Medications: Current Medications Albuterol/Ipratropium (Duoneb 3 Mg/0.5 Mg (3 Ml) Ud) 3 ml IH Q2H PRN PRN Reason: Shortness of Breath Albuterol/Ipratropium (Duoneb 3 Mg/0.5 Mg (3 Ml) Ud) 3 ml IH [id number] [facility] Last Admin: 12/03/17 07:34 Dose: 3 ml Alprazolam (Xanax) 0.5 mg PO HS [facility] PRN Reason: Protocol Last Admin: 12/02/17 21:10 Dose: 0.5 mg Amlodipine Besylate (Norvasc) 5 mg PO DAILY [facility] Last Admin: 12/03/17 10:03 Dose: 5 mg Amylase (Pancrease 20481 U-5000 [id number] U) 5,000 unit PO TID [facility] Last Admin: 12/03/17 10:02 Dose: 5,000 unit Ascorbic Acid (Vitamin C 500 Mg Tab) 500 mg PO DAILY [facility] Last Admin: 12/03/17 10:01 Dose: 500 mg Aspirin (Ecotrin) 81 mg PO DAILY [facility] Last Admin: 12/03/17 10:01 Dose: 81 mg Atorvastatin Calcium (Lipitor) 40 mg PO HS [facility] Last Admin: 12/02/17 21:08 Dose: 40 mg Carvedilol (Coreg) 12.5 mg PO BID [facility] Last Admin: 12/03/17 10:02 Dose: 12.5 mg Cilostazol (Pletal) 100 mg PO DAILY [facility] Last Admin: 12/03/17 10:02 Dose: 100 mg Doxycycline Hyclate (Doryx) 100 mg PO Q12 [facility] PRN Reason: Protocol Stop: 12/06/17 22:01 Last Admin: 12/03/17 10:01 Dose: 100 mg Escitalopram Oxalate (Lexapro) 5 mg PO DAILY [facility] Last Admin: 12/03/17 10:01 Dose: 5 mg Famotidine (Pepcid) 20 mg PO HS [facility] Last Admin: 12/02/17 21:09 Dose: 20 mg Furosemide (Lasix) 20 mg PO QOTHERDAY [facility] Last Admin: 12/03/17 10:01 Dose: 20 mg Heparin Sodium (Porcine) (Heparin) 5,000 units SC Q12 [facility] PRN Reason: Protocol Last Admin: 12/03/17 10:00 Dose: 5,000 units Cefepime HCl (Maxipime 1gm) 1 gm in 100 mls @ 100 mls/hr IVPB Q12 [facility] PRN Reason: Protocol Stop: 12/06/17 22:01 Last Admin: 12/03/17 10:04 Dose: 100 mls/hr Vancomycin HCl (Vancomycin 1gm) 1 gm in 250 mls @ 167 mls/hr IVPB Q12H [facility] PRN Reason: Protocol Last Admin: 12/02/17 21:09 Dose: 167 mls/hr Levothyroxine Sodium (Synthroid) 88 mcg PO DAILY [facility] Last Admin: 12/03/17 10:01 Dose: 88 mcg Loperamide HCl (Imodium) 2 mg PO Q6 PRN PRN Reason: Diarrhea Multivitamins (Thera Tab) 1 tab PO DAILY [facility] Last Admin: 12/03/17 10:02 Dose: 1 tab Tramadol HCl (Ultram) 50 mg PO HS PRN PRN Reason: Pain, moderate (4-7) Last Admin: 12/02/17 21:21 Dose: 50 mg Zinc Sulfate (Zinc Sulfate 220 Mg Cap) 220 mg PO DAILY [facility] Last Admin: 12/03/17 10:01 Dose: 220 mg - Labs Labs: 12/03/17 09:00 12/03/17 09:00 PT 12.4 SECONDS (9.4-12.5) 12/03/17 09:00 INR 1.08 (0.93-1.08) 12/03/17 09:00 - Constitutional Appears: No Acute Distress - Head Exam Head Exam: ATRAUMATIC, NORMAL INSPECTION, NORMOCEPHALIC - Eye Exam Eye Exam: EOMI, Normal appearance, PERRL. absent: Scleral icterus Pupil Exam: NORMAL ACCOMODATION - ENT Exam ENT Exam: Mucous Membranes Moist - Neck Exam Additional comments: supple, No JVD - Respiratory Exam Respiratory Exam: Clear to Ausculation Bilateral, Wheezes (mild expiratory RUL) - Cardiovascular Exam Cardiovascular Exam: REGULAR RHYTHM, +S1, +S2. absent: Murmur - GI/Abdominal Exam GI & Abdominal Exam: Soft, Normal Bowel Sounds. absent: Tenderness - Extremities Exam Extremities Exam: Pedal Edema (slight b/l) - Neurological Exam Neurological Exam: Alert, Awake, Oriented x3 - Psychiatric Exam Psychiatric exam: Normal Affect, Normal Mood - Skin Skin Exam: Dry, Warm Assessment and Plan - Assessment and Plan (Free Text) Plan: Ms Gutierrez, 87 F [facility], with PMH CVA with L weakness, CAD/HTN, CHF , PVD, OA, hypothyroidism, falls, liver mass, chronic diarrhea, chronic L parotid mass (non malignant) was brought in for cough, dehydration, and decrease PO intake. A: 1. Bacteremia - Coag Neg staph (11/26). Questionable contaminant per ID - Repeat cultures neg x 3d (11/29) - Echo: No vegetation 2. HCAP, L sided; bronchitis; Elevated procalcitonin 3. UTI, E.Coli 4. L Tibia fracture - seen on CT- can be from fall from previous stay or weight baring 5. Liver mass with elevated CA 19-9, CEA - R hepatic lobe seen on previous MRCP - patient wants biopsy (will be done as outpatient) 6. CKD IIIb; KRISTAN resolved Hx CAD, diastolic CHF, HTN, PVD Anemia of chronic disease (stable, Hb baseline 9) OA; 10. Hypothyroidism CVA w/ L residual weakness Chronic diarrhea- controlled, currently resolved Hx depression & anxiety; delirium per psych Plan: Doxycycline + cefepime + Vancomycin: Day __7___ Follow up on blood culture Duoneb Q6 amrit & PRN Continue physical therapy. Per Ortho: No plan on OR for fracture. Ultram PRN. Continue ASA, norvasc 5, Coreg 12.5bid, Lipitor 40, and pletal 100. lasix 20 every other day. GI: continue pancrease TID, Vit C, Zinc, thera tab Endo: Synthroid 88 Per psych: Continue lexaprol 5, xanax 0.5 at night Prophylaxis: pepcid, heparin q12 Discharge planning - Outpatient liver biopsy with IR - Outpatient PET - Follow up with Primary care doctor Dr. Hewitt at [facility] - Pending final blood culture and length of ABX Consults: Jennifer Qiu, Kathy, Marily, Ifrah, Ernesto s/r/d/w Dr. Hadley <Juanito Hadley S - Last Filed: 12/03/17 18:24> Objective - Vital Signs/Intake and Output Vital Signs (last 24 hours): Temp Pulse Resp BP Pulse Ox 96.2 F L 61 20 151/70 H 96 12/03/17 17:11 12/03/17 17:11 12/03/17 17:11 12/03/17 17:11 12/03/17 17:11 Intake and Output: 12/03/17 12/03/17 06:59 18:59 Intake Total 120 Balance 120 - Medications Medications: Current Medications Acetaminophen (Tylenol 325mg Tab) 650 mg PO Q4 PRN PRN Reason: Pain, Mild (1-3) Albuterol/Ipratropium (Duoneb 3 Mg/0.5 Mg (3 Ml) Ud) 3 ml IH Q2H PRN PRN Reason: Shortness of Breath Albuterol/Ipratropium (Duoneb 3 Mg/0.5 Mg (3 Ml) Ud) 3 ml IH [id number] [facility] Last Admin: 12/03/17 13:23 Dose: 3 ml Alprazolam (Xanax) 0.5 mg PO HS [facility] PRN Reason: Protocol Last Admin: 12/02/17 21:10 Dose: 0.5 mg Amlodipine Besylate (Norvasc) 5 mg PO DAILY [facility] Last Admin: 12/03/17 10:03 Dose: 5 mg Amylase (Pancrease 14679 U-5000 U-[id number] U) 5,000 unit PO TID [facility] Last Admin: 12/03/17 16:06 Dose: Not Given Ascorbic Acid (Vitamin C 500 Mg Tab) 500 mg PO DAILY [facility] Last Admin: 07/30/18 10:01 Dose: 500 mg Aspirin (Ecotrin) 81 mg PO DAILY [facility] Last Admin: 12/03/17 10:01 Dose: 81 mg Atorvastatin Calcium (Lipitor) 40 mg PO HS [facility] Last Admin: 12/02/17 21:08 Dose: 40 mg Carvedilol (Coreg) 12.5 mg PO BID [facility] Last Admin: 12/03/17 10:02 Dose: 12.5 mg Cilostazol (Pletal) 100 mg PO DAILY [facility] Last Admin: 12/03/17 10:02 Dose: 100 mg Doxycycline Hyclate (Doryx) 100 mg PO Q12 [facility] PRN Reason: Protocol Stop: 12/06/17 22:01 Last Admin: 12/03/17 10:01 Dose: 100 mg Escitalopram Oxalate (Lexapro) 5 mg PO DAILY [facility] Last Admin: 12/03/17 10:01 Dose: 5 mg Famotidine (Pepcid) 20 mg PO HS [facility] Last Admin: 12/02/17 21:09 Dose: 20 mg Furosemide (Lasix) 20 mg PO QOTHERDAY [facility] Last Admin: 12/03/17 10:01 Dose: 20 mg Heparin Sodium (Porcine) (Heparin) 5,000 units SC Q12 [facility] PRN Reason: Protocol Last Admin: 12/03/17 10:00 Dose: 5,000 units Levothyroxine Sodium (Synthroid) 88 mcg PO DAILY [facility] Last Admin: 12/03/17 10:01 Dose: 88 mcg Loperamide HCl (Imodium) 2 mg PO Q6 PRN PRN Reason: Diarrhea Multivitamins (Thera Tab) 1 tab PO DAILY [facility] Last Admin: 12/03/17 10:02 Dose: 1 tab Ondansetron HCl (Zofran Inj) 4 mg IVP Q6H PRN PRN Reason: Nausea/Vomiting Last Admin: 12/03/17 15:20 Dose: 4 mg Oxycodone/Acetaminophen (Percocet 5/325 Mg Tab) 1 tab PO Q4H PRN PRN Reason: Pain, moderate (4-7) Stop: 12/06/17 14:52 Zinc Sulfate (Zinc Sulfate 220 Mg Cap) 220 mg PO DAILY [facility] Last Admin: 12/03/17 10:01 Dose: 220 mg - Labs Labs: 12/03/17 09:00 12/03/17 09:00 PT 12.4 SECONDS (9.4-12.5) 12/03/17 09:00 INR 1.08 (0.93-1.08) 12/03/17 09:00 Assessment and Plan - Assessment and Plan (Free Text) Plan: Pt seen and examined. I have reviewed the note of the medical lab tech instructor and agree with it. I have discussed the assessment and plan with the resident. I have reviewed the patient's labs and medications. Pt with Staph bacteremia on Abx. She had a liver bx done today and had no complications. She will be going to [facility] for rehab. I spoke to GI - Dr Calixto about the case.
[2017-12-03] MEDS: Vancomycin 1gm in NS 250ml 1 GM/250 ML BAG IVPB SCH (11:54)
[2017-12-03] MEDS ORDERED: Lidocaine 1% Inj (20ml) ONE (14:26)
[2017-12-03] MEDS ORDERED: Oxycodone/Acetaminophen 5/325 mg Tab PO PRN (14:51)
[2017-12-03] MEDS ORDERED: Sodium Chloride 0.45% 1,000 ML IV SCH (15:00)
--- NOTE | 2017-12-03 15:58 | CP.PCM.DIS ---
<AmanuelVero - Last Filed: 12/03/17 17:07> Provider - Provider Date of Admission: 11/26/17 22:45 Attending physician: Juanito Hadley MD Primary care physician: Lorenzo Hewitt MD Time Spent in preparation of Discharge (in minutes): 30 Hospital Course - Lab Results Lab Results: Micro Results 11/29/17 10:30 Blood-Venous Blood Culture - Preliminary NO GROWTH AFTER 4 DAYS 11/29/17 10:00 Blood-Venous Blood Culture - Preliminary NO GROWTH AFTER 4 DAYS 11/29/17 07:00 Sputum Gram Stain - Final 11/29/17 07:00 Sputum Sputum Culture - Final NORMAL ORAL MARE 11/27/17 11:48 Urine Urine Culture - Final Escherichia Coli 11/27/17 18:47 Stool C. difficile Antigen & Toxin A,B (M - Final Most Recent Lab Values WBC 9.6 10^3/ul (4.5-11.0) 12/03/17 09:00 RBC 3.20 10^6/uL (3.5-6.1) L 12/03/17 09:00 Hgb 9.7 g/dL (12.0-16.0) L 12/03/17 09:00 Hct 31.1 % (36.0-48.0) L 12/03/17 09:00 MCV 97.2 fl (80.0-105.0) D 12/03/17 09:00 MCH 30.3 pg (25.0-35.0) 12/03/17 09:00 MCHC 31.2 g/dl (31.0-37.0) 12/03/17 09:00 RDW 14.6 % (11.5-14.5) H 12/03/17 09:00 Plt Count 301 10^3/uL (120.0-450.0) 12/03/17 09:00 MPV 9.7 fl (7.0-11.0) 12/03/17 09:00 Gran % 48.8 % (50.0-68.0) L 12/03/17 09:00 Lymph % (Auto) 38.2 % (22.0-35.0) H 12/03/17 09:00 [place] % (Auto) 9.3 % (1.0-6.0) H 12/03/17 09:00 Eos % (Auto) 3.5 % (1.5-5.0) 12/03/17 09:00 Baso % (Auto) 0.2 % (0.0-3.0) 12/03/17 09:00 Gran # 4.67 (1.4-6.5) 12/03/17 09:00 Lymph # (Auto) 3.7 (1.2-3.4) H 12/03/17 09:00 [place] # (Auto) 0.9 (0.1-0.6) H 12/03/17 09:00 Eos # (Auto) 0.3 (0.0-0.7) 12/03/17 09:00 Baso # (Auto) 0.02 K/mm3 (0.0-2.0) 12/03/17 09:00 PT 12.4 SECONDS (9.4-12.5) 12/03/17 09:00 INR 1.08 (0.93-1.08) 12/03/17 09:00 Sodium 145 mmol/L (132-148) 12/03/17 09:00 Potassium 4.8 mmol/L (3.6-5.0) 12/03/17 09:00 Chloride 109 mmol/L (98-107) H 12/03/17 09:00 Carbon Dioxide 25 mmol/L (21-33) 12/03/17 09:00 Anion Gap 16 (10-20) 12/03/17 09:00 BUN 24 mg/dL (7-21) H 12/03/17 09:00 Creatinine 1.0 mg/dl (0.7-1.2) 12/03/17 09:00 Est GFR ( Amer) > 60 12/03/17 09:00 Est GFR (Non-Af Amer) 53 12/03/17 09:00 Random Glucose 87 mg/dL (70-110) 12/03/17 09:00 Calcium 8.9 mg/dL (8.4-10.5) 12/03/17 09:00 Magnesium 1.9 mg/dL (1.7-2.2) 11/28/17 06:20 Total Bilirubin 0.3 mg/dL (0.2-1.3) 12/03/17 09:00 AST 60 U/L (14-36) H 12/03/17 09:00 ALT 85 U/L (7-56) H 12/03/17 09:00 Alkaline Phosphatase 91 U/L (38-126) 12/03/17 09:00 Lactate Dehydrogenase 491 U/L (333-699) 11/26/17 21:23 Total Creatine Kinase 124 U/L (35-230) 11/26/17 21:23 Troponin I 0.02 ng/mL D 11/26/17 21:23 NT-Pro-B Natriuret Pep 1230 pg/mL (0-450) H 11/26/17 21:23 Total Protein 7.0 g/dL (5.8-8.3) 12/03/17 09:00 Albumin 3.3 g/dL (3.0-4.8) 12/03/17 09:00 Globulin 3.7 gm/dL 12/03/17 09:00 Albumin/Globulin Ratio 0.9 (1.1-1.8) L 12/03/17 09:00 Alpha Fetoprotein 1.3 ng/mL (0.0-7.5) 12/03/17 05:50 Carcinoembryonic Ag 43.2 ng/mL (0.0-3.0) H 11/28/17 11:03 CA 19-9 Antigen 4840 U/mL (0-37) H 11/28/17 11:03 Procalcitonin 0.78 NG/ML (0.19-0.49) H 11/28/17 06:00 Beta HCG, Quant < 2.39 mIU/mL (0-6.15) 12/03/17 05:50 Urine Color Yellow (YELLOW) 11/27/17 11:48 Urine Appearance Clear (CLEAR) 11/27/17 11:48 Urine pH 6.0 (4.7-8.0) 11/27/17 11:48 Ur Specific [place] 1.010 (1.005-1.035) 11/27/17 11:48 Urine Protein Trace mg/dL (<30 mg/dL) H 11/27/17 11:48 Urine Glucose (UA) Negative mg/dL (NEGATIVE) 11/27/17 11:48 Urine Ketones Negative mg/dL (NEGATIVE) 11/27/17 11:48 Urine Blood Negative (NEGATIVE) 11/27/17 11:48 Urine Nitrate Positive (NEGATIVE) H 11/27/17 11:48 Urine Bilirubin Negative (NEGATIVE) 11/27/17 11:48 Urine Urobilinogen 0.2 E.U./dL (<1 E.U./dL) 11/27/17 11:48 Ur Leukocyte Esterase Large Anna/uL (NEGATIVE) H 11/27/17 11:48 Urine RBC 0 - 2 /hpf (0-2) 11/27/17 11:48 Urine WBC 25 - 30 /hpf (0-6) 11/27/17 11:48 Ur Epithelial Cells 4 - 5 /hpf (0-5) 11/27/17 11:48 Urine Bacteria Many (NEG) 11/27/17 11:48 Blood Type A NEGATIVE 11/26/17 21:15 Antibody Screen Negative 11/26/17 21:15 BBK History Checked Patient has bt 11/26/17 21:15 - Hospital Course Hospital Course: PGY-[address] Hadley Ms Gutierrez, 87 F [facility], with PMH CVA with L weakness, CAD/HTN, CHF , PVD, OA, hypothyroidism, falls, liver mass, chronic diarrhea, chronic L parotid mass (non malignant) was brought in for cough, dehydration, and decrease PO intake. He was found to have Bacteremia - Coag Neg staph (11/26). Questionable contaminant per infectious disease doctor - Repeat cultures neg x 3d (11/29) - Echo: No vegetation - Now observe off antibiotics s/p vanco - Pt had 6 days of Doxycycline + cefepime + Vancomycin. ID doctor recommends continue doxy and cefepime x 3 more days. He had HCAP, L sided; bronchitis; Elevated procalcitonin. He is on Duoneb Q6 armit & PRN He also had UTI, E.Coli He was being treated for L Tibia fracture which could be be from fall from previous stay or weight bearing. He received physical therapy. Per Ortho: No plan on OR for fracture. Ultram PRN. Pt was found to have a Liver mass with elevated CA 19-9, CEA - R hepatic lobe seen on previous MRCP - patient underwent biopsy today He had KRISTAN on admission, resolved. CKD IIIb persist His Chronic diarrhea was controlled, currently resolved Hx depression & anxiety; delirium per psych For his cardiac history, he was continued ASA, norvasc 5, Coreg 12.5bid, Lipitor 40, and pletal 100. lasix 20 every other day. For chronic diarrhea, continue pancrease TID, Vit C, Zinc, thera tab He was treated with Synthroid 88 Per psych: Continue lexaprol 5, xanax 0.5 at night Prophylaxis: pepcid, heparin q12 Discharge planning - Follow up on liver biopsy with IR - Outpatient PET - Follow up with Primary care doctor Dr. Hewitt at [facility] Consults: Jennifer Qiu, Kathy, Ifrah Calixto Smith s/r/d/w Dr. Hadley Discharge Exam - Head Exam Head Exam: ATRAUMATIC, NORMAL INSPECTION, NORMOCEPHALIC - Eye Exam Eye Exam: EOMI, Normal appearance, PERRL. absent: Scleral icterus Pupil Exam: NORMAL ACCOMODATION - ENT Exam ENT Exam: Mucous Membranes Moist - Neck Exam Additional comments: supple - Respiratory Exam Respiratory Exam: NORMAL BREATHING PATTERN. absent: Rales, Rhonchi, Wheezes - Cardiovascular Exam Cardiovascular Exam: +S1, +S2. absent: Systolic Murmur - GI/Abdominal Exam GI & Abdominal Exam: Normal Bowel Sounds, Soft. absent: Guarding, Rigid, Tenderness - Extremities Exam Extremities exam: pedal edema (slight b/l) - Neurological Exam Neurological exam: Alert, Oriented x3 - Psychiatric Exam Psychiatric exam: Normal Affect, Normal Mood - Skin Skin Exam: Dry, Normal Color Discharge Plan - Discharge Medications Prescriptions: Cefepime 1gm in NS 100ml [Maxipime 1gm] 1 gm IVPB Q12 3 Days bag Doxycycline Hyclate 100 mg PO Q12 3 Days capsule Escitalopram [Lexapro] 5 mg PO DAILY 30 Days tab Famotidine [Pepcid] 20 mg PO HS #30 tab - Follow Up Plan Condition: FAIR Disposition: REHAB FACILITY/REHAB UNIT Instructions: Dehydration, Adult (DC), Generalized Weakness (DC) Additional Instructions: Continue doxycyclin and cefepime for 3 more days per ID doctor - Follow up on liver biopsy with IR - Outpatient PET - Follow up with Primary care doctor Dr. Hewitt at [facility] Referrals: Lorenzo Hewitt MD [Primary Care Provider] - <Juanito Hadley S - Last Filed: 12/03/17 19:16> Provider - Provider Date of Admission: 11/26/17 22:45 Attending physician: Juanito Hadley MD Primary care physician: Lorenzo Hewitt MD Hospital Course - Lab Results Lab Results: Micro Results 11/29/17 10:30 Blood-Venous Blood Culture - Preliminary NO GROWTH AFTER 4 DAYS 11/29/17 10:00 Blood-Venous Blood Culture - Preliminary NO GROWTH AFTER 4 DAYS 11/29/17 07:00 Sputum Gram Stain - Final 11/29/17 07:00 Sputum Sputum Culture - Final NORMAL ORAL MARE 11/27/17 11:48 Urine Urine Culture - Final Escherichia Coli 11/27/17 18:47 Stool C. difficile Antigen & Toxin A,B (M - Final Most Recent Lab Values WBC 9.6 10^3/ul (4.5-11.0) 12/03/17 09:00 RBC 3.20 10^6/uL (3.5-6.1) L 12/03/17 09:00 Hgb 9.7 g/dL (12.0-16.0) L 12/03/17 09:00 Hct 31.1 % (36.0-48.0) L 12/03/17 09:00 MCV 97.2 fl (80.0-105.0) D 12/03/17 09:00 MCH 30.3 pg (25.0-35.0) 12/03/17 09:00 MCHC 31.2 g/dl (31.0-37.0) 12/03/17 09:00 RDW 14.6 % (11.5-14.5) H 12/03/17 09:00 Plt Count 301 10^3/uL (120.0-450.0) 12/03/17 09:00 MPV 9.7 fl (7.0-11.0) 12/03/17 09:00 Gran % 48.8 % (50.0-68.0) L 12/03/17 09:00 Lymph % (Auto) 38.2 % (22.0-35.0) H 12/03/17 09:00 [place] % (Auto) 9.3 % (1.0-6.0) H 12/03/17 09:00 Eos % (Auto) 3.5 % (1.5-5.0) 12/03/17 09:00 Baso % (Auto) 0.2 % (0.0-3.0) 12/03/17 09:00 Gran # 4.67 (1.4-6.5) 12/03/17 09:00 Lymph # (Auto) 3.7 (1.2-3.4) H 12/03/17 09:00 [place] # (Auto) 0.9 (0.1-0.6) H 12/03/17 09:00 Eos # (Auto) 0.3 (0.0-0.7) 12/03/17 09:00 Baso # (Auto) 0.02 K/mm3 (0.0-2.0) 12/03/17 09:00 PT 12.4 SECONDS (9.4-12.5) 12/03/17 09:00 INR 1.08 (0.93-1.08) 12/03/17 09:00 Sodium 145 mmol/L (132-148) 12/03/17 09:00 Potassium 4.8 mmol/L (3.6-5.0) 12/03/17 09:00 Chloride 109 mmol/L (98-107) H 12/03/17 09:00 Carbon Dioxide 25 mmol/L (21-33) 12/03/17 09:00 Anion Gap 16 (10-20) 12/03/17 09:00 BUN 24 mg/dL (7-21) H 12/03/17 09:00 Creatinine 1.0 mg/dl (0.7-1.2) 12/03/17 09:00 Est GFR ( Amer) > 60 12/03/17 09:00 Est GFR (Non-Af Amer) 53 12/03/17 09:00 Random Glucose 87 mg/dL (70-110) 12/03/17 09:00 Calcium 8.9 mg/dL (8.4-10.5) 12/03/17 09:00 Magnesium 1.9 mg/dL (1.7-2.2) 11/28/17 06:20 Total Bilirubin 0.3 mg/dL (0.2-1.3) 12/03/17 09:00 AST 60 U/L (14-36) H 12/03/17 09:00 ALT 85 U/L (7-56) H 12/03/17 09:00 Alkaline Phosphatase 91 U/L (38-126) 12/03/17 09:00 Lactate Dehydrogenase 491 U/L (333-699) 11/26/17 21:23 Total Creatine Kinase 124 U/L (35-230) 11/26/17 21:23 Troponin I 0.02 ng/mL D 11/26/17 21:23 NT-Pro-B Natriuret Pep 1230 pg/mL (0-450) H 11/26/17 21:23 Total Protein 7.0 g/dL (5.8-8.3) 12/03/17 09:00 Albumin 3.3 g/dL (3.0-4.8) 12/03/17 09:00 Globulin 3.7 gm/dL 12/03/17 09:00 Albumin/Globulin Ratio 0.9 (1.1-1.8) L 12/03/17 09:00 Alpha Fetoprotein 1.3 ng/mL (0.0-7.5) 12/03/17 05:50 Carcinoembryonic Ag 43.2 ng/mL (0.0-3.0) H 11/28/17 11:03 CA 19-9 Antigen 4840 U/mL (0-37) H 11/28/17 11:03 Procalcitonin 0.78 NG/ML (0.19-0.49) H 11/28/17 06:00 Beta HCG, Quant < 2.39 mIU/mL (0-6.15) 12/03/17 05:50 Urine Color Yellow (YELLOW) 11/27/17 11:48 Urine Appearance Clear (CLEAR) 11/27/17 11:48 Urine pH 6.0 (4.7-8.0) 11/27/17 11:48 Ur Specific [place] 1.010 (1.005-1.035) 11/27/17 11:48 Urine Protein Trace mg/dL (<30 mg/dL) H 11/27/17 11:48 Urine Glucose (UA) Negative mg/dL (NEGATIVE) 11/27/17 11:48 Urine Ketones Negative mg/dL (NEGATIVE) 11/27/17 11:48 Urine Blood Negative (NEGATIVE) 11/27/17 11:48 Urine Nitrate Positive (NEGATIVE) H 11/27/17 11:48 Urine Bilirubin Negative (NEGATIVE) 11/27/17 11:48 Urine Urobilinogen 0.2 E.U./dL (<1 E.U./dL) 11/27/17 11:48 Ur Leukocyte Esterase Large Anna/uL (NEGATIVE) H 11/27/17 11:48 Urine RBC 0 - 2 /hpf (0-2) 11/27/17 11:48 Urine WBC 25 - 30 /hpf (0-6) 11/27/17 11:48 Ur Epithelial Cells 4 - 5 /hpf (0-5) 11/27/17 11:48 Urine Bacteria Many (NEG) 11/27/17 11:48 Blood Type A NEGATIVE 11/26/17 21:15 Antibody Screen Negative 11/26/17 21:15 BBK History Checked Patient has bt 11/26/17 21:15 - Hospital Course Hospital Course: Pt seen and examined. I have reviewed the note of the medical office receptionist assistant and agree with it. I have discussed the assessment and plan with the resident. I have reviewed the patient's labs and medication. Pt will be discharged to [facility]. Will getf/u bx results as outpt. Spoke to GI and IR.
--- NOTE | 2017-12-03 16:05 | CT ---
PROCEDURE: CT guided liver biopsy. HISTORY: Solitary 4.5 cm right liver mass. Evaluate for malignancy. PHYSICIAN(S): Denis Orozco MD. TECHNIQUE: The relative risks and indications of the procedure were explained to the patient and consent obtained. The patient was placed supine on the CT scanner and preliminary images through the liver obtained. Conscious sedation and monitoring were provided throughout the procedure by a nurse. There is a solitary 4.5 cm hypoechoic mass in the right lobe of the liver laterally.. A right lateral approach was selected and the area prepped and draped in the usual sterile fashion. 1% Xylocaine was used to anesthetize the skin and soft tissues. A 17-gauge guiding needle was advanced into the 0.5 cm right liver mass. Its position was confirmed with CT. Using coaxial technique, multiple core biopsies were obtained. The postprocedure images show no evidence of significant hemorrhage. IMPRESSION: 1. CT-guided liver biopsy as described above.
--- NOTE | 2017-12-03 16:06 | CP.PCM.PN ---
Subjective - Date & Time of Evaluation Date of Evaluation: 12/03/17 Time of Evaluation: 12:15 - Subjective Subjective: Patient is comfortable in bed, no fevers, not in distress, no SOB at rest. Objective - Vital Signs/Intake and Output Vital Signs (last 24 hours): Temp Pulse Resp BP Pulse Ox 97 F L 64 20 151/62 H 99 12/03/17 07:56 12/03/17 10:03 12/03/17 07:56 12/03/17 10:03 12/03/17 07:56 Intake and Output: 12/03/17 12/03/17 06:59 18:59 Intake Total 120 Balance 120 - Medications Medications: Current Medications Albuterol/Ipratropium (Duoneb 3 Mg/0.5 Mg (3 Ml) Ud) 3 ml IH Q2H PRN PRN Reason: Shortness of Breath Albuterol/Ipratropium (Duoneb 3 Mg/0.5 Mg (3 Ml) Ud) 3 ml IH [id number] [facility] Last Admin: 12/03/17 07:34 Dose: 3 ml Alprazolam (Xanax) 0.5 mg PO HS [facility] PRN Reason: Protocol Last Admin: 12/02/17 21:10 Dose: 0.5 mg Amlodipine Besylate (Norvasc) 5 mg PO DAILY [facility] Last Admin: 12/03/17 10:03 Dose: 5 mg Amylase (Pancrease [id number] U) 5,000 unit PO TID [facility] Last Admin: 12/03/17 10:02 Dose: 5,000 unit Ascorbic Acid (Vitamin C 500 Mg Tab) 500 mg PO DAILY [facility] Last Admin: 12/03/17 10:01 Dose: 500 mg Aspirin (Ecotrin) 81 mg PO DAILY [facility] Last Admin: 12/03/17 10:01 Dose: 81 mg Atorvastatin Calcium (Lipitor) 40 mg PO HS [facility] Last Admin: 12/02/17 21:08 Dose: 40 mg Carvedilol (Coreg) 12.5 mg PO BID [facility] Last Admin: 12/03/17 10:02 Dose: 12.5 mg Cilostazol (Pletal) 100 mg PO DAILY [facility] Last Admin: 12/03/17 10:02 Dose: 100 mg Doxycycline Hyclate (Doryx) 100 mg PO Q12 [facility] PRN Reason: Protocol Stop: 12/06/17 22:01 Last Admin: 12/03/17 10:01 Dose: 100 mg Escitalopram Oxalate (Lexapro) 5 mg PO DAILY [facility] Last Admin: 12/03/17 10:01 Dose: 5 mg Famotidine (Pepcid) 20 mg PO HS [facility] Last Admin: 12/02/17 21:09 Dose: 20 mg Furosemide (Lasix) 20 mg PO QOTHERDAY [facility] Last Admin: 12/03/17 10:01 Dose: 20 mg Heparin Sodium (Porcine) (Heparin) 5,000 units SC Q12 [facility] PRN Reason: Protocol Last Admin: 12/03/17 10:00 Dose: 5,000 units Cefepime HCl (Maxipime 1gm) 1 gm in 100 mls @ 100 mls/hr IVPB Q12 [facility]RE[facility] PRN Reason: Protocol Stop: 12/06/17 22:01 Last Admin: 12/03/17 10:04 Dose: 100 mls/hr Vancomycin HCl (Vancomycin 1gm) 1 gm in 250 mls @ 167 mls/hr IVPB Q12H [facility]RE[facility] PRN Reason: Protocol Last Admin: 12/02/17 21:09 Dose: 167 mls/hr Levothyroxine Sodium (Synthroid) 88 mcg PO DAILY [facility] Last Admin: 12/03/17 10:01 Dose: 88 mcg Loperamide HCl (Imodium) 2 mg PO Q6 PRN PRN Reason: Diarrhea Multivitamins (Thera Tab) 1 tab PO DAILY [facility] Last Admin: 12/03/17 10:02 Dose: 1 tab Tramadol HCl (Ultram) 50 mg PO HS PRN PRN Reason: Pain, moderate (4-7) Last Admin: 12/02/17 21:21 Dose: 50 mg Zinc Sulfate (Zinc Sulfate 220 Mg Cap) 220 mg PO DAILY [facility] Last Admin: 12/03/17 10:01 Dose: 220 mg - Labs Labs: 12/03/17 09:00 12/03/17 09:00 PT 12.4 SECONDS (9.4-12.5) 12/03/17 09:00 INR 1.08 (0.93-1.08) 12/03/17 09:00 - Constitutional Appears: Non-toxic, Chronically Ill - Head Exam Head Exam: NORMAL INSPECTION - Neck Exam Neck Exam: absent: Meningismus - Respiratory Exam Respiratory Exam: Decreased Breath Sounds - Cardiovascular Exam Cardiovascular Exam: +S1, +S2 - GI/Abdominal Exam GI & Abdominal Exam: Soft. absent: Tenderness Assessment and Plan - Assessment and Plan (Free Text) Plan: Assessment left sided HCAP with possible gram positive cocci and/or gram negative bacilli and/or atypical organisms coagulase negative staph bacteremia, most likely contamination (no prosthetic joints or devices, no pacemaker or ICD, no indwelling venous catheters) S/P acute renal failure acute diastolic heart failure on top of chronic CHF consider UTI with E. coli acute left proximal tibial fracture osteoarthritis CAD Plan continue Cefepime and Doxycycline day 7 (up to 10 days) repeat blood cx are negative and 2D echo is negative for vegetations will continue to monitor clinically while the patient is in the hospital
--- NOTE | 2017-12-03 16:27 | IP.NPCORE ---
Pneumonia Progress Notes - Oxygenation Assessment (REQUIRED) O2 Saturation: 99 Oxygen Delivery Method: Nasal Cannula Date: 12/03/17 - Blood Cultures (REQUIRED) Culture drawn: Yes Date:: 11/26/17 - Initial Antibiotic Initial Antibiotic given within Four Hours:: Yes (Rocephin, Zithromax) Date:: 11/27/17 Time:: 00:15 - Appropriate Antibiotic Appropriate Antibiotic within 24 hours of Admission:: Yes - Pneumonia Vaccine Pneumonia Vaccine: No (patient refused 04/29) - Smoking Cessation Smoking Cessation counseling provided:: No (n/a)
[2017-12-03 17:12] VITALS: BP 151/70; PULSE 61; RESP 20; TEMP 96.2; O2SAT 96
--- NOTE | 2017-12-04 00:01 | CP.PCM.PN ---
Subjective - Date & Time of Evaluation Date of Evaluation: 12/03/17 Time of Evaluation: 17:00 - Subjective Subjective: Comfortable in bed. No pain. Diarrhea improved. No abdominal pain. She underwent CT guided biopsy of liver mass today. Completed antibiotics for PNA. Objective - Vital Signs/Intake and Output Vital Signs (last 24 hours): Temp Pulse Resp BP Pulse Ox 96.2 F L 61 20 151/70 H 96 12/03/17 17:11 12/03/17 18:06 12/03/17 17:11 12/03/17 18:06 12/03/17 17:11 Intake and Output: 12/03/17 12/04/17 18:59 06:59 Intake Total 980 Output Total 500 Balance 480 - Labs Labs: 12/03/17 09:00 12/03/17 09:00 PT 12.4 SECONDS (9.4-12.5) 12/03/17 09:00 INR 1.08 (0.93-1.08) 12/03/17 09:00 - Constitutional Appears: Chronically Ill - Head Exam Head Exam: ATRAUMATIC, NORMAL INSPECTION, NORMOCEPHALIC - Eye Exam Eye Exam: Normal appearance - ENT Exam ENT Exam: Mucous Membranes Moist - Neck Exam Neck Exam: Normal Inspection - Respiratory Exam Respiratory Exam: Clear to Ausculation Bilateral, NORMAL BREATHING PATTERN - Cardiovascular Exam Cardiovascular Exam: REGULAR RHYTHM, +S1, +S2 - GI/Abdominal Exam GI & Abdominal Exam: Soft, Normal Bowel Sounds - Extremities Exam Extremities Exam: Normal Inspection - Back Exam Back Exam: NORMAL INSPECTION - Neurological Exam Neurological Exam: Alert, CN II-XII Intact, Oriented x3 Assessment and Plan - Assessment and Plan (Free Text) Assessment: 1. Liver mass : s/p biopsy today. Discussed with the daughter bedside. we will follow up on biopsy results. HCG, AFP ordered today. further work up and treatment as per biopsy results. 2. HD stable. 3. renal : stable. She is being discharged to [facility]. in office for further management.
== END 2017-12-03 22:41 | DRG 193 ==
LOC: ED 20:26 → ERH 22:45 → 3RNO 11-27 00:33
PROVIDERS: ADMIT Internal Medicine Nephrology; ATTEND Internal Medicine Nephrology
DX: J18.9 Pneumonia, unspecified organism (principal); I50.33 Acute on chronic diastolic (congestive) heart failure; S82.142A Displaced bicondylar fracture of left tibia, initial encounter for closed fracture; I13.0 Hypertensive heart and chronic kidney disease with heart failure and stage 1 through stage 4 chronic kidney disease, or unspecified chronic kidney disease; I69.354 Hemiplegia and hemiparesis following cerebral infarction affecting left non-dominant side; L97.429 Non-pressure chronic ulcer of left heel and midfoot with unspecified severity; M25.062 Hemarthrosis, left knee; N17.9 Acute kidney failure, unspecified; N39.0 Urinary tract infection, site not specified; I25.2 Old myocardial infarction; I25.10 Atherosclerotic heart disease of native coronary artery without angina pectoris; E87.5 Hyperkalemia; E86.0 Dehydration; E78.5 Hyperlipidemia, unspecified; J40 Bronchitis, not specified as acute or chronic; K21.9 Gastro-esophageal reflux disease without esophagitis; I73.9 Peripheral vascular disease, unspecified; K29.70 Gastritis, unspecified, without bleeding; K52.9 Noninfective gastroenteritis and colitis, unspecified; K59.00 Constipation, unspecified; K76.9 Liver disease, unspecified; M17.12 Unilateral primary osteoarthritis, left knee; N18.9 Chronic kidney disease, unspecified; R09.02 Hypoxemia; Y95 Nosocomial condition; Z87.440 Personal history of urinary (tract) infections; Z87.81 Personal history of (healed) traumatic fracture; Z87.891 Personal history of nicotine dependence; Z95.5 Presence of coronary angioplasty implant and graft; B96.20 Unspecified Escherichia coli [E. coli] as the cause of diseases classified elsewhere; Z80.0 Family history of malignant neoplasm of digestive organs; D50.9 Iron deficiency anemia, unspecified; D63.8 Anemia in other chronic diseases classified elsewhere; E03.9 Hypothyroidism, unspecified; Z79.82 Long term (current) use of aspirin; Z79.899 Other long term (current) drug therapy